=== PATIENT | male | born 1950 | race Caucasian/White ===

== ENCOUNTER 2025-06-07 06:00 | Inpatient (IN) | payer MEDICARE, MEDICAID, SELFPAY ==
[2025-06-07] VITALS (44 sets, daily range): BP systolic 104–143; BP diastolic 47–71; PULSE 70–101; RESP 19–30; TEMP 37.2–38.2; O2SAT 92–100; BMI 43.1
--- NOTE | ~2025-06-07 | XR_ITS ---
Examination: XR chest 1V portable Clinical History: sepsis Comparison: None Technique: Portable AP Findings: Heart size normal. Left basilar patchy opacity. Fracture left rib 5. IMPRESSION: 1. Left basilar atelectasis and/or airspace disease. Contusion also possible given age indeterminate rib fracture left rib 5.. Reviewed, dictated and finalized at location R. IMPRESSION: 1. Left basilar atelectasis and/or airspace disease. Contusion also possible g iven age indeterminate rib fracture left rib 5..
--- NOTE | ~2025-06-07 | CT_ITS ---
EXAMINATION: CT chest abdomen pelvis wo con DATE: 06/07/2025 15:14 INDICATION: Shortness of breath. TECHNIQUE: Computed tomography (CT) of the chest, abdomen, and pelvis was performed without intravenous contrast. Automated exposure control and iterative reconstruction technique were employed. The dose-length product was 2223.15 mGy-cm. COMPARISON: None FINDINGS: CHEST CT: The lungs demonstrate mild atelectasis. There are trace pleural effusions. Cardiomegaly is noted. There are coronary artery calcifications. No pericardial effusion. The central pulmonary arteries are enlarged, consistent with pulmonary artery hypertension. There is internal fixation of left humerus. There are old healed bilateral rib fractures. There are bridging endplate osteophytes at multiple levels in the spine, consistent with diffuse idiopathic skeletal hyperostosis (DISH). ABDOMEN/PELVIS CT: The liver and spleen are normal. There are gallstones in the gallbladder, which is distended. The pancreas and adrenal glands are normal. There are cysts in the kidneys measuring up to 19 mm on the right. There is a 2 mm stone in right kidney. A 9 mm mass in left kidney is too small to characterize, but likely a cyst. The Black catheter balloon is in the prostate. The prostate is moderately enlarged. There are diverticula of the bladder. There is diverticulosis of the colon without evidence of diverticulitis. The appendix is normal. There are no dilated loops of bowel. There is a lipoma in right iliopsoas muscle. There is mild bilateral external iliac lymphadenopathy, likely reactive. There is no a scites. There is a left hip hemiarthroplasty. There is moderate lumbar spondylosis. IMPRESSION: 1. Black catheter balloon in abnormal position in the prostate. 2. Mild bilateral external iliac lymphadenopathy, likely reactive. 3. Cholelithiasis. Gallbladder distention may be secondary to fasting. Correlate with physical exam to exclude acute cholecystitis. Reviewed, dictated and finalized at location E. IMPRESSION: 1. Black catheter balloon in abnormal position in the prostate. 2. Mild bilateral external iliac lymphadenopathy, likely reactive. 3. Cholelithiasis. Gallbladder distention may be secondary to fasting. Correlat e with physical exam to exclude acute cholecystitis.
--- NOTE | 2025-06-07 06:11 | ECG_ITS ---
Test Date: 2025-06-07 06:05:48 Measurements Intervals [place] Rate: 101 P: 99 WV: 214 QRS: 44 QRSD: 106 T: 58 QT: 354 QTc: 459 Interpretive Statements SINUS TACHYCARDIA WITH FIRST DEGREE AV BLOCK NONSPECIFIC ST & T-WAVE ABNORMALITY No previous ECG available for comparison Electronically Signed On 06-07-2025 06:13:01 CDT by Renita Bush M.D.
--- NOTE | 2025-06-07 06:13 | ED.FEVER ---
HPI - Fever General Chief Complaint: Shortness of Breath/Dyspnea Stated Complaint: FEVER, LOW SPO2 History of Present Illness HPI Narrative: 75-year-old male with a past medical history including cerebral infarction, COPD, hypertension, Alzheimer's dementia. Patient presents from 1 of our local nursing facilities for concerns of sepsis. Patient was found during morning rounds hypoxic, feverish, diaphoretic. Patient is awake alert oriented as baseline mentation, denies any cough, chest pain, abdominal pain, back pain. Brought in by EMS currently on non-rebreather secondary to hypoxemia despite oxygen supplementation. Patient is DNR DNI on a signed resuscitation form. Patient received 650 mg of Tylenol this morning by long term staff and his fever came down slightly. No recent illnesses per long term staff for EMS report. Patient herself has no specific complaints other than feeling unwell. Review of Systems Review of Systems: As reviewed above in HPI Exam Narrative: GENERAL: Ill appearing, acute distress, tachypneic, hypoxic and febrile, diaphoretic HEAD: Normocephalic EYES: PERRLA ENT: Nares clear, no rhinorrhea or epistaxis. Mucous membranes moist. NECK: Supple. CHEST: Coarse bibasilar breath sounds, coarse apical breath sounds, tachypnea, no wheezing HEART: Tachycardic rate, regular rhythm. No murmur heard. Warm extremities with good pulses ABDOMEN: Soft, protuberant but nondistended, no rigidity or guarding EXTREMITIES: Normal range of motion. Brawny edema in the legs SKIN: Very warm to the touch, diaphoretic, no appreciable rashes in the inguinal region or system NEURO: No new focal deficits, right-sided deficits from prior stroke. Alert and oriented times 2-3, intermittently confused on current location. PSYCH: Normal mood Course Vital Signs Vital signs: Vital Signs Temperature 38.1 C H 06/07/25 05:56 Pulse Rate 100 06/07/25 05:56 Respiratory Rate 27 H 06/07/25 05:56 Blood Pressure 136/63 06/07/25 05:56 Pulse Oximetry 95 06/07/25 05:56 Oxygen Delivery Non-Rebreather Mask 06/07/25 05:56 Oxygen Flow Rate 15 06/07/25 05:56 Temperature 38.1 C H 06/07/25 05:56 Pulse Rate 92 06/07/25 06:57 Respiratory Rate 27 H 06/07/25 06:53 Blood Pressure 136/63 06/07/25 05:56 Pulse Oximetry 96 06/07/25 06:53 Oxygen Delivery High Flow Therapy with Face Mask 06/07/25 06:53 Oxygen Flow Rate 35 06/07/25 06:53 Fraction of Inspired Oxygen 89 06/07/25 06:53 MDM - Fever MDM Narrative Medical decision making narrative: 75-year-old male with a past medical history including cerebral infarction, COPD, hypertension, Alzheimer's dementia. Patient presents from 1 of our local nursing facilities for concerns of sepsis. Patient was found during morning rounds hypoxic, feverish, diaphoretic. Patient is awake alert oriented as baseline mentation, denies any cough, chest pain, abdominal pain, back pain. Brought in by EMS currently on non-rebreather secondary to hypoxemia despite oxygen supplementation. Patient is DNR DNI on a signed resuscitation form. Patient received 650 mg of Tylenol this morning by long term staff and his fever came down slightly. No recent illnesses per long term staff for EMS report. Patient herself has no specific complaints other than feeling unwell. Patient is very ill appearing. Tachycardic in the low 100s, hypoxic 80% on 5 L per EMS currently 15 L non-rebreather 93-94%. Febrile axillary temperature. Tachypneic and has very coarse breath sounds concern for pneumonia versus aspiration with his history of stroke. Respiratory therapy called to bedside to initiate high-flow nasal cannula therapy as patient is DNR and DNI and does not want intubation, but with his level of distress he needs some respiratory support. Patient is significantly obese and full 30 cc/kg bolus would be almost 4500 cc, will give 3 L and reassess need for additional volume resuscitation given that he has normal blood pressure ranges tachycardic. Vancomycin and cefepime empirically for sepsis while workup underway including chest x-ray, urinalysis and basic laboratory studies. Patient will be admitted to the hospital after completion of workup and initial treatment of sepsis. Additional Tylenol administered for fever. Chest x-ray independently reviewed appears to be pneumonia with ground-glass opacities. COVID flu and RSV pending as well as laboratory studies. Laboratory studies show severe leukocytosis of 24,000 consistent with active infection. BUN and creatinine are elevated with no history of CKD suspect dehydration, fluid resuscitation ongoing. Patient evaluated and feeling better at this time. Much more awake on the high-flow nasal cannula saturating 95%. Discussed with the hospitalist Dr. Garcia plan for admission to the IMU. Except to the facility at this time. Urinalysis pending. Hospitalist asked to add on azithromycin to cover for other atypical infections as well. Medical Records Attestation: I reviewed the patient's medical records. Lab Data Attestation: I reviewed the patient's lab results. 06/07/25 06:27 06/07/25 06:27 Labs: Lab Results 06/07/25 Range/Units 06:27 WBC 24.5 H (4.5-10.0) K/mm3 RBC 4.36 L (4.6-6.20) M/mm3 Hgb 12.2 L (14.0-18.0) g/dL Hct 40.6 L (42.0-52.0) % MCV 93.1 (80-100) fl MCH 28.0 (26-34) pg MCHC 30.0 L (32-36) g/dl RDW 15.5 H (11.5-14.5) % Plt Count 234 (150-375) k/mm3 MPV 10.5 H (7.4-10.4) fl Immature Gran % (Auto) 2.5 H (0-0.5) % Neut % (Auto) 90.2 H (45.5-73.1) % Lymph % (Auto) 1.4 L (18.3-44.2) % [place] % (Auto) 5.6 (2.6-8.5) % Eos % (Auto) 0.0 (0-4.4) % Baso % (Auto) 0.3 (0.2-1.2) % Lymph # (Auto) 0.34 L (0.9-3.2) K/mm3 [place] # (Auto) 1.4 H (0.1-0.6) K/mm3 Eos # (Auto) 0.0 (0-0.3) K/mm3 Baso # (Auto) 0.1 (0.0-0.1) K/mm3 Abs Immat Gran (auto) 0.61 H (0.00-0.031) K/mm3 Absolute Neuts (auto) 22.1 H (1.3-6.7) K/mm3 Absolute Nucleated RBC 0.000 (0.0-0.012) K/mm3 Nucleated RBC % 0.0 (0.0-0.2) % PT 15.9 H (11.1-14.7) Seconds INR 1.3 APTT 28.2 (22.3-36.8) Seconds Sodium 142 (137-145) mmol/L Potassium 3.5 (3.4-5.0) mmol/L Chloride 105 (98-107) mmol/L Carbon Dioxide 28 (22-30) mmol/L Anion Gap 9 (4-12) mmol/L BUN 36 H (9-20) mg/dL Creatinine 2.16 H (0.7-1.3) mg/dL Estim Creat Clear Calc 43 ml/min Estimated GFR 30 L (59 - ) Glucose 130 H (65-110) mg/dL Lactic Acid 1.3 (0.7-2.0) mmol/L Calcium 8.6 (8.4-10.2) mg/dL Total Bilirubin 0.6 (0.2-1.3) mg/dL AST 30 (17-59) U/L ALT 18 (6-50) U/L Alkaline Phosphatase 62 (38-126) U/L C-Reactive Protein 6.8 H (<1.0) mg/dL Total Protein 7.8 (6.3-8.2) g/dL Albumin 4.0 (3.5-5.1) g/dL Imaging Data Attestation: I personally reviewed and interpreted this imaging study as follows: My impression: Impressions Chest X-Ray 06/07/25 06:42 IMPRESSION: 1. Left basilar atelectasis and/or airspace disease. Contusion also possible given age indeterminate rib fracture left rib 5.. Critical Care Time Critical Care Time Critical Care Time: Yes Total Critical Care Time: 35 Discharge Plan Discharge Clinical Impression: Sepsis, Acute hypoxemic respiratory failure, Pneumonia Patient Disposition: Still a Patient Condition: Stable Patient Language: Wolof Follow-up/Referrals: PHYSICIAN,CLAY MAKER [Primary Care Provider, Internal Medicine] Time of Disposition: 07:13
[2025-06-07 06:37] LABS: Hematocrit 40.6 % (42.0-52.0); Hemoglobin 12.2 g/dL (14.0-18.0); Immature Granulocyte Percent A 2.5 % (0-0.5); Lymphocytes Absolute Auto 0.34 K/mm3 (0.9-3.2); Mean Corpuscular HGB Conc 30.0 g/dl (32-36); Mean Corpuscular Hemoglobin 28.0 pg (26-34); Mean Corpuscular Volume 93.1 fl (80-100); Nucleated Red Blood Cells Absolute Auto 0.000 K/mm3 (0.0-0.012); Nucleated Red Blood Cells Perc 0.0 % (0.0-0.2); Platelet Count Result 234 k/mm3 (150-375); Red Blood Count 4.36 M/mm3 (4.6-6.20); White Blood Count 24.5 K/mm3 (4.5-10.0)
[2025-06-07] MEDS: LACTATED RINGERS 1,000 ML 999 ML IV CONT ×3 (06:44→06:45)
[2025-06-07] MEDS: CEFEPIME 2 GM in SODIUM CHLORIDE 0.9% IV 50 ML 100 ML IVPB ×2 (06:47→20:58)
[2025-06-07 06:48] LABS: INR 1.3; Prothrombin Time 15.9 Seconds (11.1-14.7)
[2025-06-07 06:49] LABS: Alanine Aminotransferase 18 U/L (6-50); Albumin Level 4.0 g/dL (3.5-5.1); Alkaline Phosphatase 62 U/L (38-126); Anion Gap 9 mmol/L (4-12); Aspartate Amino Transferase 30 U/L (17-59); Bilirubin,Total 0.6 mg/dL (0.2-1.3); Blood Urea Nitrogen 36 mg/dL (9-20); CRP 6.8 mg/dL (<1.0); Calcium 8.6 mg/dL (8.4-10.2); Carbon Dioxide 28 mmol/L (22-30); Chloride 105 mmol/L (98-107); Estimated CRCL calculation 43 ml/min; Estimated Glomerular Filt Rate 30; Glucose 130 mg/dL (65-110); Partial Thromboplastin Time 28.2 Seconds (22.3-36.8); Potassium 3.5 mmol/L (3.4-5.0); Sodium 142 mmol/L (137-145); Total Protein 7.8 g/dL (6.3-8.2)
[2025-06-07] MEDS: ACETAMINOPHEN 500 MG TABLET 1000 MG PO (06:56)
[2025-06-07] MEDS: LIDOCAINE 2% GEL UROJET 10 ML PKG (06:56)
--- NOTE | 2025-06-07 07:05 | PC.NURSE ---
Assumed care of pt from [facility]. Pt awake and talkative. Speech is slurred so its difficult to understand what pt is saying. Pt trying to tell jokes. Alert to person and place
[2025-06-07 07:18] LABS: Add Urine Microscopic? NO; Appearance Urine Clear (Clear); Glucose Urine UA Negative (Negative); Leukocyte Esterase Ur Negative LEU/UL (Negative); Nitrate Urine Negative (Negative); Specific Grav Ur 1.016 (1.001-1.035)
[2025-06-07] MEDS: AZITHROMYCIN IV 500 MG in SODIUM CHLORIDE 0.9% IV 250 ML IVPB (07:34)
[2025-06-07] MEDS: VANCOMYCIN 2,000 MG/NS 500 ML 2,000 MG/500 ML BAG 250 MG IVPB (08:20)
[2025-06-07 09:20] LABS: MRSA (PCR) NOT DETECTED (NOT DETECTE)
--- NOTE | 2025-06-07 10:52 | PC.NURSE ---
Patient arrived from ER. Tele and Spo2 monitor applied. O2 on airvo increased. Admission started. Dr notified of O2 increase and temperature
[2025-06-07] MEDS: HYDROCORTISONE SODIUM SUCCINATE 100 MG/2 ML VIAL 50 MG IV PUSH ×2 (12:06→17:53)
--- NOTE | 2025-06-07 18:25 | PM.IMHP ---
H&P: HPI History of Present Illness Date/Time: 06/07/25 18:25 Chief Complaint: Shortness of breath Narrative: Presents with hypoxia. Has a history of COPD. History of dementia. At baseline, chandrika historian, A&O x3. Placed on nasal cannula, when he came to the floor became more hypoxic. Placed on high-flow nasal cannula. He has been improving. Review of Systems Review of Systems: All systems reviewed & are unremarkable except as noted in HPI and below (Subjective) [facility] Social History Social History Smoking status: Former smoker Alcohol intake: former Substance use: never Lack of Transportation: No Lack of Food: Never True Current Housing: I Have Housing Concerned About Future Housing: No Difficulty Paying Gas/Electric Bills: No Difficulty Paying for Meds: No Currently Unemployed: No Education: Trade/Vocational Certificate Difficulty w/ Childcare or Family Care: No Spiritual care concerns: No Meds Home Medications and Allergies Home Medications ?Medication ?Instructions ?Recorded ?Confirmed ?Type acetaminophen 325 mg capsule 325 mg PO Q4H PRN fever or pain 06/07/25 06/07/25 History acetaminophen 500 mg tablet 500 mg PO BID 06/07/25 06/07/25 History albuterol sulfate 2.5 mg/3 mL 2.5 mg inhalation Q8H PRN 06/07/25 06/07/25 History (0.083 %) solution for nebulization shortness of breath or wheezing amlodipine 10 mg tablet 10 mg PO DAILY 06/07/25 06/07/25 History apixaban 2.5 mg tablet (Eliquis) 2.5 mg PO Q12H 06/07/25 06/07/25 History atorvastatin 20 mg tablet 20 mg PO QPM 06/07/25 06/07/25 History cholecalciferol (vitamin D3) 125 125 mcg PO DAILY 06/07/25 06/07/25 History mcg (5,000 unit) tablet escitalopram oxalate 10 mg tablet 10 mg PO DAILY 06/07/25 06/07/25 History ferrous sulfate 325 mg (65 mg 325 mg PO .COMPLEX 06/07/25 06/07/25 History iron) tablet ferrous sulfate 325 mg (65 mg 325 mg PO DAILY 06/07/25 06/07/25 History iron) tablet (FeroSul) fluticasone 250 mcg-salmeterol 50 1 inh inhalation Q12H 06/07/25 06/07/25 History mcg/dose blistr powdr for inhalation folic acid 400 mcg tablet 400 mcg PO DAILY 06/07/25 06/07/25 History hydralazine 100 mg tablet 100 mg PO TID 06/07/25 06/07/25 History insulin glargine 100 unit/mL (3 3 unit subcut QPM 06/07/25 06/07/25 History mL) subcutaneous pen (Lantus Solostar U-100 Insulin) insulin lispro 100 unit/mL 1 sliding scale dose subcut BID 06/07/25 06/07/25 History subcutaneous pen (Humalog KwikPen (U-100) Insulin) linagliptin 5 mg tablet (Tradjenta) 5 mg PO DAILY 06/07/25 06/07/25 History loperamide 2 mg capsule 2 mg PO Q12H PRN loose stool 06/07/25 06/07/25 History loratadine 10 mg tablet (Allergy 10 mg PO DAILY 06/07/25 06/07/25 History Relief (loratadine)) magnesium hydroxide 2,400 mg/10 mL 30 ml PO DAILY PRN constipation 06/07/25 06/07/25 History oral suspension (Milk Of Magnesia Concentrated) metoprolol tartrate 50 mg tablet 50 mg PO DAILY 06/07/25 06/07/25 History mirabegron 25 mg tablet,extended 25 mg PO HS 06/07/25 06/07/25 History release 24 hr (Myrbetriq) mirtazapine 15 mg tablet 15 mg PO HS 06/07/25 06/07/25 History sennosides 8.6 mg tablet (senna) 8.6 mg PO DAILY 06/07/25 06/07/25 History torsemide 20 mg tablet 40 mg PO DAILY 06/07/25 06/07/25 History trazodone 100 mg tablet 100 mg PO HS 06/07/25 06/07/25 History vilazodone 40 mg tablet 40 mg PO DAILY 06/07/25 06/07/25 History zolpidem 10 mg tablet 10 mg PO HS 06/07/25 06/07/25 History Allergies Allergy/AdvReac Type Severity Reaction Status Date / Time No Known Allergies Allergy Verified 06/07/25 10:49 Vital Signs Vital Signs - 24 hr 06/07/25 05:56 06/07/25 05:56 06/07/25 05:56 Temperature 100.6 F H Pulse Rate 100 Respiratory Rate 27 H 28 H Blood Pressure 136/63 Pulse Oximetry 95 96 Oxygen Delivery Non-Rebreather Mask Non-Rebreather Mask Oxygen Flow Rate 15 15 Fraction of Inspired Oxygen 06/07/25 06:07 06/07/25 06:08 06/07/25 06:15 Temperature Pulse Rate 101 H 100 98 Respiratory Rate 26 H 26 H 30 H Blood Pressure 136/63 Pulse Oximetry 95 92 Oxygen Delivery Oxygen Flow Rate Fraction of Inspired Oxygen 06/07/25 06:16 06/07/25 06:30 06/07/25 06:45 Temperature Pulse Rate 98 99 94 Respiratory Rate 28 H 29 H 25 H Blood Pressure 119/64 Pulse Oximetry 93 Oxygen Delivery Oxygen Flow Rate Fraction of Inspired Oxygen 06/07/25 06:53 06/07/25 06:53 06/07/25 06:57 Temperature Pulse Rate 97 96 92 Respiratory Rate 27 H 26 H Blood Pressure 128/60 Pulse Oximetry 96 Oxygen Delivery High Flow Therapy with Fa Oxygen Flow Rate 35 Fraction of Inspired Oxygen 89 06/07/25 07:00 06/07/25 07:01 06/07/25 07:02 Temperature Pulse Rate 99 93 96 Respiratory Rate 20 22 H 19 Blood Pressure 143/67 H Pulse Oximetry 97 95 96 Oxygen Delivery Oxygen Flow Rate Fraction of Inspired Oxygen 06/07/25 07:15 06/07/25 07:16 06/07/25 07:30 Temperature Pulse Rate 90 90 87 Respiratory Rate 23 H 21 H 28 H Blood Pressure 114/58 L Pulse Oximetry 96 96 96 Oxygen Delivery Oxygen Flow Rate Fraction of Inspired Oxygen 06/07/25 07:31 06/07/25 07:45 06/07/25 07:46 Temperature Pulse Rate 89 88 86 Respiratory Rate 27 H 25 H 26 H Blood Pressure 111/54 L 114/56 L Pulse Oximetry 96 97 97 Oxygen Delivery Oxygen Flow Rate Fraction of Inspired Oxygen 06/07/25 08:00 06/07/25 08:01 06/07/25 08:15 Temperature Pulse Rate 89 87 93 Respiratory Rate 30 H 25 H 26 H Blood Pressure 112/61 Pulse Oximetry 99 98 96 Oxygen Delivery Oxygen Flow Rate Fraction of Inspired Oxygen 06/07/25 08:16 06/07/25 08:17 06/07/25 08:30 Temperature Pulse Rate 93 89 87 Respiratory Rate 22 H 23 H 23 H Blood Pressure 117/71 Pulse Oximetry 93 Oxygen Delivery Oxygen Flow Rate Fraction of Inspired Oxygen 06/07/25 08:31 06/07/25 08:47 06/07/25 08:53 Temperature 100.6 F H Pulse Rate 89 Respiratory Rate 21 H Blood Pressure 118/62 Pulse Oximetry 93 97 Oxygen Delivery High Flow Therapy with Na Oxygen Flow Rate 30 Fraction of Inspired Oxygen 06/07/25 09:14 06/07/25 09:34 06/07/25 10:00 Temperature 100.8 F H Pulse Rate 84 84 75 Respiratory Rate 20 20 Blood Pressure 104/51 L Pulse Oximetry 93 92 Oxygen Delivery High Flow Therapy with Na Oxygen Flow Rate 60 Fraction of Inspired Oxygen 70 06/07/25 10:53 06/07/25 11:20 06/07/25 11:54 Temperature 99.8 F H 99.1 F Pulse Rate 72 70 Respiratory Rate 22 H 20 Blood Pressure 123/50 L Pulse Oximetry 95 97 Oxygen Delivery High Flow Therapy with Na Oxygen Flow Rate 60 Fraction of Inspired Oxygen 70 06/07/25 12:00 06/07/25 12:16 06/07/25 14:00 Temperature Pulse Rate 72 72 76 Respiratory Rate 20 Blood Pressure Pulse Oximetry 93 Oxygen Delivery High Flow Therapy with Na Oxygen Flow Rate 50 Fraction of Inspired Oxygen 65 06/07/25 15:27 06/07/25 15:31 06/07/25 16:00 Temperature 99.1 F Pulse Rate 76 78 75 Respiratory Rate 20 20 Blood Pressure 128/47 L Pulse Oximetry 94 98 Oxygen Delivery High Flow Nasal Cannula Oxygen Flow Rate 7 Fraction of Inspired Oxygen 06/07/25 16:53 06/07/25 18:00 Temperature Pulse Rate 71 Respiratory Rate Blood Pressure Pulse Oximetry 93 Oxygen Delivery High Flow Nasal Cannula Oxygen Flow Rate 5 Fraction of Inspired Oxygen Exam Const: General: comfortable and no acute distress Eyes: Pupils: Equal, round and reactive pupils present Neck: Neck: supple Resp: Effort & Inspection: normal respiratory effort Other: Coarse breath sounds Cardio: Rate: regular rate Rhythm: regular rhythm GI: Inspection: non-distended GI Palp: Yes Soft to palpation Neuro: Motor exam (neuro): 5/5 motor strength present throughout Extrem: Other: Lipodermatosclerosis H&P: Results Labs Labs: Short CBC 06/07/25 Range/Units 06:27 WBC 24.5 H (4.5-10.0) K/mm3 Hgb 12.2 L (14.0-18.0) g/dL Hct 40.6 L (42.0-52.0) % Plt Count 234 (150-375) k/mm3 BMP 06/07/25 06:27 Sodium 142 Potassium 3.5 Chloride 105 Carbon Dioxide 28 BUN 36 H Creatinine 2.16 H Glucose 130 H Calcium 8.6 Liver Function 06/07/25 Range/Units 06:27 Total Bilirubin 0.6 (0.2-1.3) mg/dL AST 30 (17-59) U/L ALT 18 (6-50) U/L Alkaline Phosphatase 62 (38-126) U/L Albumin 4.0 (3.5-5.1) g/dL Urine 06/07/25 Range/Units 06:30 Urine Color Yellow (Yellow) Urine Appearance Clear (Clear) Urine pH 5.0 (5.0-9.0) Ur Specific [place] 1.016 (1.001-1.035) Urine Protein Negative (Negative) mg/dL Urine Glucose (UA) Negative (Negative) mg/dL Assessment and Plan Assessment and plan (1) Sepsis: Code(s): A41.9 - Sepsis, unspecified organism Status: Acute (2) Acute hypoxemic respiratory failure: Code(s): J96.01 - Acute respiratory failure with hypoxia Status: Acute (3) Pneumonia: Code(s): J18.9 - Pneumonia, unspecified organism Status: Acute Plan Continue antibiotics. Follow-up blood culture. Check quad viral screen, full respiratory pathogen panel. DuoNebs q.6 hours. Hydrocortisone for high pneumonia severity index. Patient wishes to be DNR. Hospitalist MIPS Advance Care Plan I have confirmed that the patient's Advanced Care Plan is present, code status is documented, or surrogate decision maker is listed in patient medical record.: Yes Medication Reconciliation I have utilized all available resources to obtain, update and review the patients current medications (includes all prescriptions, OTC, herbals, cannabis, and nutritional supplements).: Yes
[2025-06-07 19:28] LABS: Influenza A QL RT-PCR Negative (Negative); Influenza B QL RT-PCR Negative (Negative); RSV RNA, RT-PCR Negative (Negative); SARS-CoV-2 RNA PCR Negative (Negative)
[2025-06-08] VITALS (34 sets, daily range): BP systolic 122–142; BP diastolic 49–90; PULSE 62–876; RESP 18–23; TEMP 36.7–37.2; O2SAT 87–98; BMI 43.0
[2025-06-08] MEDS: HYDROCORTISONE SODIUM SUCCINATE 100 MG/2 ML VIAL 50 MG IV PUSH ×4 (00:46→21:56)
[2025-06-08] MEDS: TAMSULOSIN HCL 0.4 MG CAPSULE PO ×2 (00:48→08:36)
--- NOTE | 2025-06-08 00:56 | PC.NURSE ---
Report from day shift that willoughby placed for retention was removed due to not draining. Bladder scanned 287ml. Received order to insert new catheter from Jaquelin Kruger. Attempted coude placement without success. Patient voided after attempt. bladder scanned 33ml. received order okay to leave willoughby out and bladder scan q6 hours and prn. Received orders for flomax.
[2025-06-08] MEDS: IPRATROPIUM 0.5 MG/ALBUTEROL SULFATE 2.5 MG AMPUL.NEB 3 ML INHALATION ×5 (01:35→19:50)
[2025-06-08 06:51] LABS: Hematocrit 35.0 % (42.0-52.0); Hemoglobin 10.4 g/dL (14.0-18.0); Immature Granulocyte Percent A 1.2 % (0-0.5); Lymphocytes Absolute Auto 0.60 K/mm3 (0.9-3.2); Mean Corpuscular HGB Conc 29.7 g/dl (32-36); Mean Corpuscular Hemoglobin 28.0 pg (26-34); Mean Corpuscular Volume 94.3 fl (80-100); Nucleated Red Blood Cells Absolute Auto 0.000 K/mm3 (0.0-0.012); Nucleated Red Blood Cells Perc 0.0 % (0.0-0.2); Platelet Count Result 180 k/mm3 (150-375); Red Blood Count 3.71 M/mm3 (4.6-6.20); White Blood Count 16.1 K/mm3 (4.5-10.0)
[2025-06-08 07:11] LABS: Alanine Aminotransferase 15 U/L (6-50); Albumin Level 3.3 g/dL (3.5-5.1); Alkaline Phosphatase 62 U/L (38-126); Anion Gap 7 mmol/L (4-12); Aspartate Amino Transferase 35 U/L (17-59); Bilirubin,Total 0.4 mg/dL (0.2-1.3); Blood Urea Nitrogen 35 mg/dL (9-20); Calcium 7.9 mg/dL (8.4-10.2); Carbon Dioxide 28 mmol/L (22-30); Chloride 104 mmol/L (98-107); Estimated CRCL calculation 51 ml/min; Estimated Glomerular Filt Rate 38; Glucose 205 mg/dL (65-110); Magnesium 2.3 mg/dL (1.6-2.3); Potassium 3.7 mmol/L (3.4-5.0); Sodium 139 mmol/L (137-145); Total Protein 6.5 g/dL (6.3-8.2)
[2025-06-08 07:26] LABS: Anisocytosis 1+; Hypochromasia 1+
[2025-06-08 07:27] LABS: Schistocytes None Seen
[2025-06-08] MEDS: AZITHROMYCIN IV 500 MG in SODIUM CHLORIDE 0.9% IV 250 ML IVPB (08:35)
[2025-06-08] MEDS: METOPROLOL TARTRATE 50 MG TAB PO (08:36)
[2025-06-08] MEDS: LORATADINE 10 MG TABLET PO (08:36)
[2025-06-08] MEDS: FERROUS SULFATE 325 MG TABLET PO (08:36)
[2025-06-08] MEDS: VANCOMYCIN 2,000 MG/NS 500 ML 2,000 MG/500 ML BAG 250 MG IVPB (08:39)
[2025-06-08] MEDS: CEFEPIME 2 GM in SODIUM CHLORIDE 0.9% IV 50 ML 100 ML IVPB ×2 (08:39→20:35)
--- NOTE | 2025-06-08 09:46 | P.CDI_ITS ---
CDI Query Clarification Request Patient with a BMI of 43.0 please provide a diagnosis to accompany this finding: * Overweight * Obesity * Morbid Obesity * Other/Unknown <Meghann Patterson RN - Last Filed: 06/08/25 09:47> Clarified Diagnosis Clarified Diagnosis: Morbid obesity <Lora Garcia MD - Last Filed: 06/09/25 08:23>
[2025-06-08] MEDS: SENNOSIDES 8.6 MG TABLET PO (10:45)
[2025-06-08] MEDS: APIXABAN 2.5 MG TABLET PO ×2 (10:45→20:35)
[2025-06-08] MEDS: INSULIN ASPART (*BKC) 100 UNITS/ML SUB-Q ×4 (10:45→20:50)
--- NOTE | 2025-06-08 15:16 | PC.NURSE ---
On 06/08/25, the student, Jami, provided care and completed [facility] documentation on [facility]. I have reviewed the student's documentation and agree with the findings.
[2025-06-08] MEDS: INSULIN GLARGINE (*BKC) 100 UNITS/ML SUB-Q (17:19)
[2025-06-08] MEDS: ATORVASTATIN 20 MG TABLET PO (17:22)
--- NOTE | 2025-06-08 17:39 | PM.IMPN ---
Progress Note: A&P Assessment and Plan (1) Sepsis: Code(s): A41.9 - Sepsis, unspecified organism Status: Acute (2) Acute hypoxemic respiratory failure: Code(s): J96.01 - Acute respiratory failure with hypoxia Status: Acute (3) Pneumonia: Code(s): J18.9 - Pneumonia, unspecified organism Status: Acute (4) COPD exacerbation: Code(s): J44.1 - Chronic obstructive pulmonary disease with (acute) exacerbation Status: Acute Plan Patient is stable. Attempted to wean but developed hypoxia on room air. He is back and stable on 3 L high-flow nasal cannula. Continue antibiotics cefepime and azithromycin. Discontinue vancomycin. MRSA screen negative. He does not appear to be in fluid overload. Patient is able to provide some history but a bit unreliable due to his dementia. I called his attending physician from the skilled nursing papers and they did not know much about his file. Advised to call the skilled nursing and ask for records. I called and they did not answer, could not leave a message. Spoke with the patient about his Eliquis. Not appear to be on aspirin. 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 He is amenable to restart the aspirin. Continue [employer] atorvastatin as well. Start to wean hydrocortisone from 50 mg q.6 hours to q.8 hours. Patient wishes to be DNR. Saline lock IV. Continue [employer] Eliquis 2.5 mg p.o. b.i.d.. Time Spent With Patient Time with patient: Greater than 35 minutes Subjective Date/time seen: 06/08/25 17:39 Interval history: No major acute overnight events. Patient is a fair historian. Denies any complaints. Review of Systems Review of Systems: All systems reviewed & are unremarkable except as noted in HPI and below (Subjective) Exam Const: General: comfortable and no acute distress Eyes: Pupils: Equal, round and reactive pupils present Neck: Neck: supple Resp: Effort & Inspection: normal respiratory effort Other: Coarse breath sounds Cardio: Rate: regular rate Rhythm: regular rhythm GI: Inspection: non-distended GI Palp: Yes Soft to palpation Neuro: Motor exam (neuro): 5/5 motor strength present throughout Extrem: Other: Lipodermatosclerosis Objective Data Vital Signs Vital Signs: Vital Signs - 24 hr 06/07/25 18:00 06/07/25 20:00 06/07/25 20:00 Temperature Pulse Rate 71 73 Respiratory Rate Blood Pressure Pulse Oximetry 95 Oxygen Delivery High Flow Nasal Cannula Oxygen Flow Rate 5 06/07/25 20:24 06/07/25 22:00 06/08/25 00:00 Temperature 98.9 F Pulse Rate 70 72 72 Respiratory Rate 21 H Blood Pressure 129/69 Pulse Oximetry 100 Oxygen Delivery Oxygen Flow Rate 06/08/25 00:00 06/08/25 00:03 06/08/25 01:35 Temperature 98.6 F Pulse Rate 71 79 Respiratory Rate 22 H 18 Blood Pressure 122/54 L Pulse Oximetry 95 97 Oxygen Delivery High Flow Nasal Cannula Oxygen Flow Rate 5 06/08/25 01:45 06/08/25 02:41 06/08/25 04:00 Temperature Pulse Rate 84 66 74 Respiratory Rate 18 Blood Pressure Pulse Oximetry Oxygen Delivery Oxygen Flow Rate 06/08/25 04:00 06/08/25 04:50 06/08/25 06:12 Temperature 98.7 F Pulse Rate 74 69 Respiratory Rate 22 H Blood Pressure 138/57 L Pulse Oximetry 96 98 Oxygen Delivery High Flow Nasal Cannula Oxygen Flow Rate 5 06/08/25 07:34 06/08/25 08:00 06/08/25 08:04 Temperature 98.6 F Pulse Rate 83 876 H Respiratory Rate 20 Blood Pressure 124/90 Pulse Oximetry 96 87 L Oxygen Delivery Room Air Oxygen Flow Rate 06/08/25 08:04 06/08/25 08:05 06/08/25 08:16 Temperature Pulse Rate 72 79 Respiratory Rate 20 20 Blood Pressure Pulse Oximetry 90 Oxygen Delivery High Flow Nasal Cannula Oxygen Flow Rate 3 06/08/25 08:36 06/08/25 08:39 06/08/25 10:00 Temperature Pulse Rate 83 83 68 Respiratory Rate 20 Blood Pressure Pulse Oximetry 88 L Oxygen Delivery Room Air Oxygen Flow Rate 06/08/25 10:22 06/08/25 11:08 06/08/25 11:17 Temperature 98.1 F Pulse Rate 72 Respiratory Rate 20 Blood Pressure 122/62 Pulse Oximetry 91 91 93 Oxygen Delivery High Flow Nasal Cannula High Flow Nasal Cannula Oxygen Flow Rate 3 3 06/08/25 12:00 06/08/25 13:14 06/08/25 13:23 Temperature Pulse Rate 73 67 71 Respiratory Rate 20 20 Blood Pressure Pulse Oximetry Oxygen Delivery Oxygen Flow Rate 06/08/25 14:00 06/08/25 15:03 06/08/25 16:00 Temperature Pulse Rate 83 71 Respiratory Rate Blood Pressure Pulse Oximetry 93 Oxygen Delivery High Flow Nasal Cannula Oxygen Flow Rate 3 06/08/25 16:00 Temperature 98.1 F Pulse Rate 66 Respiratory Rate 20 Blood Pressure 129/53 L Pulse Oximetry 91 Oxygen Delivery Oxygen Flow Rate Intake/Output Intake/Output: Intake & Output 06/05/25 06/06/25 06/07/25 06/08/25 23:59 23:59 23:59 23:59 Intake Total 3930 1410 Output Total 450 950 Balance 3480 460 Meds/Results Medications: Active Medications Generic Name Dose Route Start Last Admin Trade Name Freq PRN Reason Stop Dose Admin Acetaminophen 650 mg 06/07/25 07:05 Acetaminophen 325 Mg Tablet PO Q4H PRN Mild Pain (1-3) or Fever Albuterol/Ipratropium 3 ml 06/07/25 20:00 06/08/25 13:09 Ipratropium 0.5 Mg/Albuterol Sulfate 2.5 Mg Ampul.Neb 3 Ml INHALATION 3 ml Q6HRT SAAD Administration Apixaban 2.5 mg 06/08/25 09:10 06/08/25 10:45 Apixaban 2.5 Mg Tablet PO 2.5 mg Q12HR SAAD Administration Atorvastatin Calcium 20 mg 06/08/25 18:00 06/08/25 17:22 Atorvastatin 20 Mg Tablet PO 20 mg QPM SAAD Administration Dextrose 12.5 gm 06/07/25 18:17 Dextrose 50% 25 Gm/50 Ml Syringe IV PUSH PRN PRN Hypoglycemia Protocol Ferrous Sulfate 325 mg 06/08/25 09:00 06/08/25 08:36 Ferrous Sulfate 325 Mg Tablet PO 325 mg DAILY SAAD Administration Folic Acid 0.4 mg 06/09/25 09:00 Folic Acid 0.4 Mg Tablet PO DAILY SAAD Glucose 15 gm 06/07/25 18:17 Glucose Oral Gel 15 Gm Of Glucse In 37.5 Gm Tube PO PRN PRN Hypoglycemia Protocol Hydrocortisone Sodium Succinate 50 mg 06/08/25 14:00 06/08/25 13:06 Hydrocortisone Sodium Succinate 100 Mg/2 Ml Vial IV PUSH 50 mg Q8HR SAAD Administration Dextrose 1,000 mls @ 100 mls/hr 06/07/25 18:17 Dextrose 5% 1,000 Ml IVPB PRN PRN Hypoglycemia Protocol Cefepime HCl 2 gm/ Sodium 50 mls @ 100 mls/hr 06/07/25 20:00 06/08/25 08:39 Chloride IVPB 100 mls/hr Q12H SAAD Administration Azithromycin 500 mg/ Sodium 250 mls @ 250 mls/hr 06/08/25 08:00 06/08/25 08:35 Chloride IVPB 250 mls/hr Q24H SAAD Administration Insulin Aspart 2 - 5 units 06/08/25 08:00 06/08/25 17:18 Insulin Aspart (*Bkc) 100 Units/Ml SUB-Q 2 units TIDWM SAAD Administration Protocol Insulin Aspart 1 - 2 units 06/07/25 21:00 06/07/25 21:02 Insulin Aspart (*Bkc) 100 Units/Ml SUB-Q Not Given HS [facility] Protocol Insulin Glargine 3 units 06/08/25 18:00 06/08/25 17:19 Insulin Glargine (*Bkc) 100 Units/Ml SUB-Q 3 units QPM SAAD Administration Loratadine 10 mg 06/08/25 09:00 06/08/25 08:36 Loratadine 10 Mg Tablet PO 10 mg DAILY SAAD Administration Metoprolol Tartrate 50 mg 06/08/25 09:00 06/08/25 08:36 Metoprolol Tartrate 50 Mg Tab PO 50 mg DAILY SAAD Administration Mirabegron 25 mg 06/08/25 21:00 Mirabegron 25 Mg Er Tablet PO HS [facility] Mirtazapine 15 mg 06/08/25 21:00 Mirtazapine 15 Mg Tablet PO HS [facility] Miscellaneous Information 1 each 06/08/25 00:01 Vilazodone Nonformulary. Can Patient Bring From Home Or Hold Till Discharge? XX 07/08/25 00:00 CLARIFY [facility] Non-Formulary Medication 40 mg 06/09/25 09:00 Vilazodone PO 07/09/25 08:59 DAILY SAAD Senna 8.6 mg 06/08/25 09:55 06/08/25 10:45 Sennosides 8.6 Mg Tablet PO 8.6 mg DAILY SAAD Administration Tamsulosin HCl 0.4 mg 06/08/25 09:00 06/08/25 08:36 Tamsulosin Hcl 0.4 Mg Capsule PO 0.4 mg QAM SAAD Administration Torsemide 40 mg 06/09/25 09:00 Torsemide 20 Mg Tablet PO DAILY SAAD Trazodone HCl 100 mg 06/08/25 21:00 Trazodone Hcl 50 Mg Tablet PO HS [facility] Vitamin D 125 mcg 06/09/25 09:00 Cholecalciferol (Vitamin D3) 125 Mcg (5,000 Units) Tablet PO DAILY [facility] Radiology Results: ITS Impressions Chest X-Ray 06/07/25 06:42 IMPRESSION: 1. Left basilar atelectasis and/or airspace disease. Contusion also possible given age indeterminate rib fracture left rib 5.. Chest/Abdomen/Pelvis CT 06/07/25 15:17 IMPRESSION: 1. Black catheter balloon in abnormal position in the prostate. 2. Mild bilateral external iliac lymphadenopathy, likely reactive. 3. Cholelithiasis. Gallbladder distention may be secondary to fasting. Correlate with physical exam to exclude acute cholecystitis. Labs Labs: Laboratory Results - last 24 hr 06/07/25 06/07/25 06/07/25 18:40 18:40 20:22 WBC RBC Hgb Hct MCV MCH MCHC RDW Plt Count MPV Immature Gran % (Auto) Neut % (Auto) Lymph % (Auto) Dickson % (Auto) Eos % (Auto) Baso % (Auto) Lymph # (Auto) Dickson # (Auto) Eos # (Auto) Baso # (Auto) Abs Immat Gran (auto) Absolute Neuts (auto) Absolute Nucleated RBC Band Neutrophils % Nucleated RBC % Platelet Estimate Hypochromasia Anisocytosis Schistocytes Sodium Potassium Chloride Carbon Dioxide Anion Gap BUN Creatinine Estim Creat Clear Calc Estimated GFR Glucose POC Capillary Glucose 174 H Calcium Magnesium Total Bilirubin AST ALT Alkaline Phosphatase Total Protein Albumin Nasal RSV Type A (PCR) Cancelled Nasal RSV Type B (PCR) Cancelled Vancomycin Trough Chlamy pneumoniae PCR Cancelled Adenovirus DNA Cancelled Human Bocavirus (TRAV) Cancelled Coronavirus Type OC43 Cancelled Coronavirus Type HKU1 Cancelled Coronavirus Type 229E Cancelled Coronavirus Type NL63 Cancelled Human Metapneumovir PCR Cancelled Influenza A (RT-PCR) Negative Influenza A (PCR) Cancelled Influenza A (H1) RNA Cancelled Influenza A (H3) PCR Cancelled Influenza B (RT-PCR) Negative M. pneumoniae DNA Cancelled Parainfluenza PCR Cancelled Parainfluenza 2 (PCR) Cancelled Parainfluenza 3 RNA (PCR) Cancelled Parainfluenza 4 (PCR) Cancelled RSV (RT-PCR) Negative Rhino/Enterovirus (TRAV) Cancelled SARS-CoV-2 RNA (RT-PCR) Negative Cancelled Influenza Type B (PCR) Cancelled Misc Test Comment Cancelled 06/08/25 06/08/25 06/08/25 06:34 07:14 11:08 WBC 16.1 H RBC 3.71 L Hgb 10.4 L Hct 35.0 L MCV 94.3 MCH 28.0 MCHC 29.7 L RDW 15.4 H Plt Count 180 MPV 10.2 Immature Gran % (Auto) 1.2 H Neut % (Auto) 91.4 H Lymph % (Auto) 3.7 L Dickson % (Auto) 3.5 Eos % (Auto) 0.0 Baso % (Auto) 0.2 Lymph # (Auto) 0.60 L Dickson # (Auto) 0.6 Eos # (Auto) 0.0 Baso # (Auto) 0.0 Abs Immat Gran (auto) 0.19 H Absolute Neuts (auto) 14.7 H Absolute Nucleated RBC 0.000 Band Neutrophils % Not Reportable Nucleated RBC % 0.0 Platelet Estimate Adequate Hypochromasia 1+ Anisocytosis 1+ Schistocytes None seen Sodium 139 Potassium 3.7 Chloride 104 Carbon Dioxide 28 Anion Gap 7 BUN 35 H Creatinine 1.76 H Estim Creat Clear Calc 51 Estimated GFR 38 L Glucose 205 H POC Capillary Glucose 203 H 250 H Calcium 7.9 L Magnesium 2.3 Total Bilirubin 0.4 AST 35 ALT 15 Alkaline Phosphatase 62 Total Protein 6.5 Albumin 3.3 L Nasal RSV Type A (PCR) Nasal RSV Type B (PCR) Vancomycin Trough 7.6 L Chlamy pneumoniae PCR Adenovirus DNA Human Bocavirus (TRAV) Coronavirus Type OC43 Coronavirus Type HKU1 Coronavirus Type 229E Coronavirus Type NL63 Human Metapneumovir PCR Influenza A (RT-PCR) Influenza A (PCR) Influenza A (H1) RNA Influenza A (H3) PCR Influenza B (RT-PCR) M. pneumoniae DNA Parainfluenza PCR Parainfluenza 2 (PCR) Parainfluenza 3 RNA (PCR) Parainfluenza 4 (PCR) RSV (RT-PCR) Rhino/Enterovirus (TRAV) SARS-CoV-2 RNA (RT-PCR) Influenza Type B (PCR) Misc Test Comment 06/08/25 06/08/25 12:58 16:38 WBC RBC Hgb Hct MCV MCH MCHC RDW Plt Count MPV Immature Gran % (Auto) Neut % (Auto) Lymph % (Auto) Dickson % (Auto) Eos % (Auto) Baso % (Auto) Lymph # (Auto) Dickson # (Auto) Eos # (Auto) Baso # (Auto) Abs Immat Gran (auto) Absolute Neuts (auto) Absolute Nucleated RBC Band Neutrophils % Nucleated RBC % Platelet Estimate Hypochromasia Anisocytosis Schistocytes Sodium Potassium Chloride Carbon Dioxide Anion Gap BUN Creatinine Estim Creat Clear Calc Estimated GFR Glucose POC Capillary Glucose 231 H 243 H Calcium Magnesium Total Bilirubin AST ALT Alkaline Phosphatase Total Protein Albumin Nasal RSV Type A (PCR) Nasal RSV Type B (PCR) Vancomycin Trough Chlamy pneumoniae PCR Adenovirus DNA Human Bocavirus (TRAV) Coronavirus Type OC43 Coronavirus Type HKU1 Coronavirus Type 229E Coronavirus Type NL63 Human Metapneumovir PCR Influenza A (RT-PCR) Influenza A (PCR) Influenza A (H1) RNA Influenza A (H3) PCR Influenza B (RT-PCR) M. pneumoniae DNA Parainfluenza PCR Parainfluenza 2 (PCR) Parainfluenza 3 RNA (PCR) Parainfluenza 4 (PCR) RSV (RT-PCR) Rhino/Enterovirus (TRAV) SARS-CoV-2 RNA (RT-PCR) Influenza Type B (PCR) Misc Test Comment
[2025-06-08] MEDS: MIRTAZAPINE 15 MG TABLET PO (20:35)
[2025-06-08] MEDS: MIRABEGRON 25 MG ER TABLET PO (20:35)
[2025-06-09] VITALS (21 sets, daily range): BP systolic 116–151; BP diastolic 54–82; PULSE 53–88; RESP 16–21; TEMP 36.4–37; O2SAT 90–100
[2025-06-09] MEDS: IPRATROPIUM 0.5 MG/ALBUTEROL SULFATE 2.5 MG AMPUL.NEB 3 ML INHALATION ×3 (01:11→20:45)
[2025-06-09 03:56] LABS: Hematocrit 32.1 % (42.0-52.0); Hemoglobin 9.7 g/dL (14.0-18.0); Immature Granulocyte Percent A 0.4 % (0-0.5); Lymphocytes Absolute Auto 0.81 K/mm3 (0.9-3.2); Mean Corpuscular HGB Conc 30.2 g/dl (32-36); Mean Corpuscular Hemoglobin 28.0 pg (26-34); Mean Corpuscular Volume 92.5 fl (80-100); Nucleated Red Blood Cells Absolute Auto 0.000 K/mm3 (0.0-0.012); Nucleated Red Blood Cells Perc 0.0 % (0.0-0.2); Platelet Count Result 185 k/mm3 (150-375); Red Blood Count 3.47 M/mm3 (4.6-6.20); White Blood Count 11.5 K/mm3 (4.5-10.0)
[2025-06-09 04:23] LABS: Anion Gap 4 mmol/L (4-12); Blood Urea Nitrogen 31 mg/dL (9-20); Calcium 8.1 mg/dL (8.4-10.2); Carbon Dioxide 30 mmol/L (22-30); Chloride 104 mmol/L (98-107); Estimated CRCL calculation 60 ml/min; Estimated Glomerular Filt Rate 46; Glucose 233 mg/dL (65-110); Magnesium 2.4 mg/dL (1.6-2.3); Potassium 3.8 mmol/L (3.4-5.0); Sodium 138 mmol/L (137-145)
[2025-06-09 04:25] LABS: Procalcitonin 4.8 ng/mL
[2025-06-09] MEDS: HYDROCORTISONE SODIUM SUCCINATE 100 MG/2 ML VIAL 50 MG IV PUSH ×3 (05:45→20:25)
--- NOTE | 2025-06-09 08:23 | PM.IMPN ---
Progress Note: A&P Assessment and Plan (1) Acute hypoxemic respiratory failure: Code(s): J96.01 - Acute respiratory failure with hypoxia Status: Acute (2) Pneumonia: Code(s): J18.9 - Pneumonia, unspecified organism Status: Acute (3) COPD exacerbation: Code(s): J44.1 - Chronic obstructive pulmonary disease with (acute) exacerbation Status: Acute (4) Sepsis: Code(s): A41.9 - Sepsis, unspecified organism Status: Acute Plan Sepsis continues to improve. Leukocytosis coming down. Procalcitonin high, continue to trend. Low blood cultures, no growth to date. Pending Legionella and pneumococcus antigen. Pending full viral respiratory pathogen panel. Pneumonia versus bronchitis. Quad viral screen negative. Anemia stable. Serum creatinine improving. Blood sugars elevated, continue Accu-Cheks a.c. HS with insulin siding scale. Continue cefepime and azithromycin. Decreased frequency of hydrocortisone for severe pneumonia to 50 mg IV push q.12 hours. Continue DuoNebs q.6 hours considering his wheezing. Patient tells me he does not wear a breathing mask at night at home Continue trazodone, torsemide, senna, mirtazapine, Mirabegron, apixaban 2.5 mg p.o. b.i.d., atorvastatin, metoprolol. As his GFR improves tomorrow will restart escitalopram. Holding SWIMMING POOL CLEANER zolpidem and amlodipine. Patient wishes to be DNR. Heart healthy diet. Fall precautions, PT/OT. Continue SWIMMING POOL CLEANER Eliquis 2.5 mg p.o. b.i.d.. Saline lock IV. Patient is stable to go to medical floor with telemetry. Time Spent With Patient Time with patient: Greater than 35 minutes Subjective Date/time seen: 06/09/25 08:23 Interval history: No major acute overnight events. Patient reports his breathing is good. However, he actively has a dry cough and some audible wheezing. Denies sputum production. Review of Systems Review of Systems: All systems reviewed & are unremarkable except as noted in HPI and below (Subjective) Exam Const: General: comfortable and no acute distress Other: A&O x3, obese. HENMT: Mouth: Yes moist mucous membranes Eyes: Pupils: Equal, round and reactive pupils present Neck: Neck: supple Resp: Other: Dyspnea on exertion, audible wheeze, decreased breath sounds on auscultation without other adventitious sounds Cardio: Rate: regular rate Rhythm: regular rhythm Heart sounds: no murmurs GI: Inspection: non-distended GI Palp: Yes Soft to palpation Neuro: Motor exam (neuro): 5/5 motor strength present throughout Extrem: General: edema Other: Trace pitting edema bilateral lower extremities with lipodermatosclerosis Objective Data Vital Signs Vital Signs: Vital Signs - 24 hr 06/08/25 08:36 06/08/25 08:39 06/08/25 10:00 Temperature Pulse Rate 83 83 68 Respiratory Rate 20 Blood Pressure Pulse Oximetry 88 L Oxygen Delivery Room Air Oxygen Flow Rate Fraction of Inspired Oxygen 06/08/25 10:22 06/08/25 11:08 06/08/25 11:17 Temperature 98.1 F Pulse Rate 72 Respiratory Rate 20 Blood Pressure 122/62 Pulse Oximetry 91 91 93 Oxygen Delivery High Flow Nasal Cannula High Flow Nasal Cannula Oxygen Flow Rate 3 3 Fraction of Inspired Oxygen 06/08/25 12:00 06/08/25 13:14 06/08/25 13:23 Temperature Pulse Rate 73 67 71 Respiratory Rate 20 20 Blood Pressure Pulse Oximetry Oxygen Delivery Oxygen Flow Rate Fraction of Inspired Oxygen 06/08/25 14:00 06/08/25 15:03 06/08/25 16:00 Temperature Pulse Rate 83 71 Respiratory Rate Blood Pressure Pulse Oximetry 93 Oxygen Delivery High Flow Nasal Cannula Oxygen Flow Rate 3 Fraction of Inspired Oxygen 06/08/25 16:00 06/08/25 18:00 06/08/25 19:50 Temperature 98.1 F Pulse Rate 66 65 65 Respiratory Rate 20 20 Blood Pressure 129/53 L Pulse Oximetry 91 Oxygen Delivery Oxygen Flow Rate Fraction of Inspired Oxygen 06/08/25 19:53 06/08/25 19:57 06/08/25 19:59 Temperature Pulse Rate 64 Respiratory Rate 20 Blood Pressure Pulse Oximetry 91 98 Oxygen Delivery High Flow Nasal Cannula Nasal Cannula Oxygen Flow Rate 4 3 Fraction of Inspired Oxygen 36 06/08/25 20:00 06/08/25 20:21 06/08/25 22:00 Temperature 98.9 F Pulse Rate 69 72 69 Respiratory Rate 23 H Blood Pressure 142/49 H Pulse Oximetry 92 Oxygen Delivery Oxygen Flow Rate Fraction of Inspired Oxygen 06/08/25 23:07 06/09/25 00:00 06/09/25 00:00 Temperature 98.8 F Pulse Rate 62 76 Respiratory Rate 20 Blood Pressure 125/55 L Pulse Oximetry 95 98 Oxygen Delivery Nasal Cannula Oxygen Flow Rate 3 Fraction of Inspired Oxygen 06/09/25 01:12 06/09/25 01:21 06/09/25 02:00 Temperature Pulse Rate 60 56 L 68 Respiratory Rate 20 20 Blood Pressure Pulse Oximetry Oxygen Delivery Oxygen Flow Rate Fraction of Inspired Oxygen 06/09/25 03:29 06/09/25 04:00 06/09/25 04:00 Temperature 98.6 F Pulse Rate 60 57 L Respiratory Rate 21 H Blood Pressure 116/54 L Pulse Oximetry 94 90 Oxygen Delivery Nasal Cannula Oxygen Flow Rate 3 Fraction of Inspired Oxygen 06/09/25 05:53 06/09/25 07:23 06/09/25 07:25 Temperature Pulse Rate 53 L 61 61 Respiratory Rate 20 20 Blood Pressure Pulse Oximetry 92 Oxygen Delivery High Flow Therapy with Na Oxygen Flow Rate 4 Fraction of Inspired Oxygen 06/09/25 07:28 06/09/25 07:47 Temperature 97.8 F Pulse Rate 60 62 Respiratory Rate 20 18 Blood Pressure 137/74 Pulse Oximetry 100 Oxygen Delivery Oxygen Flow Rate Fraction of Inspired Oxygen Intake/Output Intake/Output: Intake & Output 06/06/25 06/07/25 06/08/25 06/09/25 23:59 23:59 23:59 23:59 Intake Total 3930 2100 1000 Output Total 450 1500 380 Balance 3480 600 620 Meds/Results Medications: Active Medications Generic Name Dose Route Start Last Admin Trade Name Freq PRN Reason Stop Dose Admin Acetaminophen 650 mg 06/07/25 07:05 Acetaminophen 325 Mg Tablet PO Q4H PRN Mild Pain (1-3) or Fever Albuterol/Ipratropium 3 ml 06/07/25 20:00 06/09/25 07:22 Ipratropium 0.5 Mg/Albuterol Sulfate 2.5 Mg Ampul.Neb 3 Ml INHALATION 3 ml Q6HRT SAAD Administration Apixaban 2.5 mg 06/08/25 09:10 06/08/25 20:35 Apixaban 2.5 Mg Tablet PO 2.5 mg Q12HR SAAD Administration Atorvastatin Calcium 20 mg 06/08/25 18:00 06/08/25 17:22 Atorvastatin 20 Mg Tablet PO 20 mg QPM SAAD Administration Dextrose 12.5 gm 06/07/25 18:17 Dextrose 50% 25 Gm/50 Ml Syringe IV PUSH PRN PRN Hypoglycemia Protocol Docusate Sodium 100 mg 06/09/25 09:00 Docusate Sodium 100 Mg Capsule PO Q12HR SAAD Ferrous Sulfate 325 mg 06/08/25 09:00 06/08/25 08:36 Ferrous Sulfate 325 Mg Tablet PO 325 mg DAILY SAAD Administration Folic Acid 0.4 mg 06/09/25 09:00 Folic Acid 0.4 Mg Tablet PO DAILY SAAD Glucose 15 gm 06/07/25 18:17 Glucose Oral Gel 15 Gm Of Glucse In 37.5 Gm Tube PO PRN PRN Hypoglycemia Protocol Hydrocortisone Sodium Succinate 50 mg 06/09/25 09:00 Hydrocortisone Sodium Succinate 100 Mg/2 Ml Vial IV PUSH Q12H SAAD Dextrose 1,000 mls @ 100 mls/hr 06/07/25 18:17 Dextrose 5% 1,000 Ml IVPB PRN PRN Hypoglycemia Protocol Cefepime HCl 2 gm/ Sodium 50 mls @ 100 mls/hr 06/07/25 20:00 06/08/25 20:35 Chloride IVPB 100 mls/hr Q12H SAAD Administration Azithromycin 500 mg/ Sodium 250 mls @ 250 mls/hr 06/08/25 08:00 06/08/25 08:35 Chloride IVPB 250 mls/hr Q24H SAAD Administration Insulin Aspart 2 - 5 units 06/08/25 08:00 06/08/25 17:18 Insulin Aspart (*Bkc) 100 Units/Ml SUB-Q 2 units TIDWM SAAD Administration Protocol Insulin Aspart 1 - 2 units 06/07/25 21:00 06/08/25 20:50 Insulin Aspart (*Bkc) 100 Units/Ml SUB-Q 1 units HS SAAD Administration Protocol Insulin Glargine 3 units 06/08/25 18:00 06/08/25 17:19 Insulin Glargine (*Bkc) 100 Units/Ml SUB-Q 3 units QPM SAAD Administration Loratadine 10 mg 06/08/25 09:00 06/08/25 08:36 Loratadine 10 Mg Tablet PO 10 mg DAILY SAAD Administration Metoprolol Tartrate 50 mg 06/08/25 09:00 06/08/25 08:36 Metoprolol Tartrate 50 Mg Tab PO 50 mg DAILY SAAD Administration Mirabegron 25 mg 06/08/25 21:00 06/08/25 20:35 Mirabegron 25 Mg Er Tablet PO 25 mg HS [facility] Administration Mirtazapine 15 mg 06/08/25 21:00 06/08/25 20:35 Mirtazapine 15 Mg Tablet PO 15 mg HS SAAD Administration Miscellaneous Information 1 each 06/08/25 00:01 Vilazodone Nonformulary. Can Patient Bring From Home Or Hold Till Discharge? XX 07/08/25 00:00 CLARIFY [facility] Non-Formulary Medication 40 mg 06/09/25 09:00 Vilazodone PO 07/09/25 08:59 DAILY [facility] Senna 8.6 mg 06/08/25 09:55 06/08/25 10:45 Sennosides 8.6 Mg Tablet PO 8.6 mg DAILY SAAD Administration Tamsulosin HCl 0.4 mg 06/08/25 09:00 06/08/25 08:36 Tamsulosin Hcl 0.4 Mg Capsule PO 0.4 mg QAM [facility] Administration Torsemide 40 mg 06/09/25 09:00 Torsemide 20 Mg Tablet PO DAILY [facility] Trazodone HCl 100 mg 06/08/25 21:00 06/08/25 20:35 Trazodone Hcl 50 Mg Tablet PO 100 mg HS [facility] Administration Vitamin D 125 mcg 06/09/25 09:00 Cholecalciferol (Vitamin D3) 125 Mcg (5,000 Units) Tablet PO DAILY [facility] Radiology Results: ITS Impressions Chest X-Ray 06/07/25 06:42 IMPRESSION: 1. Left basilar atelectasis and/or airspace disease. Contusion also possible given age indeterminate rib fracture left rib 5.. Chest/Abdomen/Pelvis CT 06/07/25 15:17 IMPRESSION: 1. Black catheter balloon in abnormal position in the prostate. 2. Mild bilateral external iliac lymphadenopathy, likely reactive. 3. Cholelithiasis. Gallbladder distention may be secondary to fasting. Correlate with physical exam to exclude acute cholecystitis. Labs Labs: Laboratory Results - last 24 hr 06/07/25 06/08/25 06/08/25 18:40 11:08 12:58 WBC RBC Hgb Hct MCV MCH MCHC RDW Plt Count MPV Immature Gran % (Auto) Neut % (Auto) Lymph % (Auto) [place] % (Auto) Eos % (Auto) Baso % (Auto) Lymph # (Auto) [place] # (Auto) Eos # (Auto) Baso # (Auto) Abs Immat Gran (auto) Absolute Neuts (auto) Absolute Nucleated RBC Nucleated RBC % Sodium Potassium Chloride Carbon Dioxide Anion Gap BUN Creatinine Estim Creat Clear Calc Estimated GFR Glucose POC Capillary Glucose 250 H 231 H Calcium Magnesium Procalcitonin Nasal RSV Type A (PCR) Cancelled Nasal RSV Type B (PCR) Cancelled Chlamy pneumoniae PCR Cancelled Adenovirus DNA Cancelled Human Bocavirus (TRAV) Cancelled Coronavirus Type OC43 Cancelled Coronavirus Type HKU1 Cancelled Coronavirus Type 229E Cancelled Coronavirus Type NL63 Cancelled Human Metapneumovir PCR Cancelled Influenza A (PCR) Cancelled Influenza A (H1) RNA Cancelled Influenza A (H3) PCR Cancelled M. pneumoniae DNA Cancelled Parainfluenza PCR Cancelled Parainfluenza 2 (PCR) Cancelled Parainfluenza 3 RNA (PCR) Cancelled Parainfluenza 4 (PCR) Cancelled Rhino/Enterovirus (TRAV) Cancelled SARS-CoV-2 RNA (RT-PCR) Cancelled Influenza Type B (PCR) Cancelled Misc Test Comment Cancelled 06/08/25 06/08/25 06/09/25 16:38 20:22 03:31 WBC 11.5 H RBC 3.47 L Hgb 9.7 L Hct 32.1 L MCV 92.5 MCH 28.0 MCHC 30.2 L RDW 15.3 H Plt Count 185 MPV 10.5 H Immature Gran % (Auto) 0.4 Neut % (Auto) 86.7 H Lymph % (Auto) 7.1 L [place] % (Auto) 5.5 Eos % (Auto) 0.1 Baso % (Auto) 0.2 Lymph # (Auto) 0.81 L [place] # (Auto) 0.6 Eos # (Auto) 0.0 Baso # (Auto) 0.0 Abs Immat Gran (auto) 0.05 H Absolute Neuts (auto) 9.9 H Absolute Nucleated RBC 0.000 Nucleated RBC % 0.0 Sodium 138 Potassium 3.8 Chloride 104 Carbon Dioxide 30 Anion Gap 4 BUN 31 H Creatinine 1.50 H Estim Creat Clear Calc 60 Estimated GFR 46 L Glucose 233 H POC Capillary Glucose 243 H 226 H Calcium 8.1 L Magnesium 2.4 H Procalcitonin 4.8 Nasal RSV Type A (PCR) Nasal RSV Type B (PCR) Chlamy pneumoniae PCR Adenovirus DNA Human Bocavirus (TRAV) Coronavirus Type OC43 Coronavirus Type HKU1 Coronavirus Type 229E Coronavirus Type NL63 Human Metapneumovir PCR Influenza A (PCR) Influenza A (H1) RNA Influenza A (H3) PCR M. pneumoniae DNA Parainfluenza PCR Parainfluenza 2 (PCR) Parainfluenza 3 RNA (PCR) Parainfluenza 4 (PCR) Rhino/Enterovirus (TRAV) SARS-CoV-2 RNA (RT-PCR) Influenza Type B (PCR) Misc Test Comment 06/09/25 07:25 WBC RBC Hgb Hct MCV MCH MCHC RDW Plt Count MPV Immature Gran % (Auto) Neut % (Auto) Lymph % (Auto) [place] % (Auto) Eos % (Auto) Baso % (Auto) Lymph # (Auto) [place] # (Auto) Eos # (Auto) Baso # (Auto) Abs Immat Gran (auto) Absolute Neuts (auto) Absolute Nucleated RBC Nucleated RBC % Sodium Potassium Chloride Carbon Dioxide Anion Gap BUN Creatinine Estim Creat Clear Calc Estimated GFR Glucose POC Capillary Glucose 218 H Calcium Magnesium Procalcitonin Nasal RSV Type A (PCR) Nasal RSV Type B (PCR) Chlamy pneumoniae PCR Adenovirus DNA Human Bocavirus (TRAV) Coronavirus Type OC43 Coronavirus Type HKU1 Coronavirus Type 229E Coronavirus Type NL63 Human Metapneumovir PCR Influenza A (PCR) Influenza A (H1) RNA Influenza A (H3) PCR M. pneumoniae DNA Parainfluenza PCR Parainfluenza 2 (PCR) Parainfluenza 3 RNA (PCR) Parainfluenza 4 (PCR) Rhino/Enterovirus (TRAV) SARS-CoV-2 RNA (RT-PCR) Influenza Type B (PCR) Misc Test Comment
[2025-06-09] MEDS: INSULIN ASPART (*BKC) 100 UNITS/ML SUB-Q ×4 (08:55→22:36)
[2025-06-09] MEDS: FOLIC ACID 0.4 MG TABLET PO (08:57)
[2025-06-09] MEDS: APIXABAN 2.5 MG TABLET PO ×2 (08:57→20:25)
[2025-06-09] MEDS: METOPROLOL TARTRATE 50 MG TAB PO (08:57)
[2025-06-09] MEDS: SENNOSIDES 8.6 MG TABLET PO (08:57)
[2025-06-09] MEDS: TORSEMIDE 20 MG TABLET 40 MG PO (08:57)
[2025-06-09] MEDS: FERROUS SULFATE 325 MG TABLET PO (08:57)
[2025-06-09] MEDS: DOCUSATE SODIUM 100 MG CAPSULE PO ×2 (08:57→20:25)
[2025-06-09] MEDS: LORATADINE 10 MG TABLET PO (08:57)
[2025-06-09] MEDS: TAMSULOSIN HCL 0.4 MG CAPSULE PO (08:57)
[2025-06-09] MEDS: CHOLECALCIFEROL (VITAMIN D3) 125 MCG (5,000 UNITS) TABLET PO (08:58)
[2025-06-09] MEDS: CEFEPIME 2 GM in SODIUM CHLORIDE 0.9% IV 50 ML 100 ML IVPB ×2 (08:59→20:26)
[2025-06-09] MEDS: AZITHROMYCIN IV 500 MG in SODIUM CHLORIDE 0.9% IV 250 ML IVPB (08:59)
--- NOTE | 2025-06-09 11:46 | PC.NURSE ---
This patient, Eliezer Pierson, was transferred to [[id number] ] on 06/09/25 at 1146. Personal belongings sent with patient. Report given to [sondra ]. Appropriate documentation sent with patient.
[2025-06-09] MEDS: INSULIN GLARGINE (*BKC) 100 UNITS/ML SUB-Q (17:00)
[2025-06-09] MEDS: ATORVASTATIN 20 MG TABLET PO (17:00)
[2025-06-09] MEDS: MIRTAZAPINE 15 MG TABLET PO (20:25)
[2025-06-09] MEDS: MIRABEGRON 25 MG ER TABLET PO (20:25)
[2025-06-09] MEDS: ACETAMINOPHEN 325 MG TABLET 650 MG PO (22:36)
[2025-06-10] VITALS (15 sets, daily range): BP systolic 134–185; BP diastolic 63–86; PULSE 52–89; RESP 14–20; TEMP 36.4–37.2; O2SAT 92–98
[2025-06-10] MEDS: IPRATROPIUM 0.5 MG/ALBUTEROL SULFATE 2.5 MG AMPUL.NEB 3 ML INHALATION ×3 (01:26→14:21)
[2025-06-10 05:00] LABS: Hematocrit 33.0 % (42.0-52.0); Hemoglobin 9.9 g/dL (14.0-18.0); Immature Granulocyte Percent A 0.6 % (0-0.5); Lymphocytes Absolute Auto 1.40 K/mm3 (0.9-3.2); Mean Corpuscular HGB Conc 30.0 g/dl (32-36); Mean Corpuscular Hemoglobin 27.4 pg (26-34); Mean Corpuscular Volume 91.4 fl (80-100); Nucleated Red Blood Cells Absolute Auto 0.000 K/mm3 (0.0-0.012); Nucleated Red Blood Cells Perc 0.0 % (0.0-0.2); Platelet Count Result 178 k/mm3 (150-375); Red Blood Count 3.61 M/mm3 (4.6-6.20); White Blood Count 8.6 K/mm3 (4.5-10.0)
[2025-06-10 05:25] LABS: Anion Gap 6 mmol/L (4-12); Blood Urea Nitrogen 26 mg/dL (9-20); Calcium 8.2 mg/dL (8.4-10.2); Carbon Dioxide 32 mmol/L (22-30); Chloride 100 mmol/L (98-107); Estimated CRCL calculation 63 ml/min; Estimated Glomerular Filt Rate 53; Glucose 268 mg/dL (65-110); Magnesium 2.1 mg/dL (1.6-2.3); Potassium 3.3 mmol/L (3.4-5.0); Sodium 138 mmol/L (137-145)
[2025-06-10 05:42] LABS: Procalcitonin 2.2 ng/mL
[2025-06-10] MEDS: FOLIC ACID 0.4 MG TABLET PO (08:36)
[2025-06-10] MEDS: CHOLECALCIFEROL (VITAMIN D3) 125 MCG (5,000 UNITS) TABLET PO (08:36)
[2025-06-10] MEDS: TORSEMIDE 20 MG TABLET 40 MG PO (08:36)
[2025-06-10] MEDS: DOCUSATE SODIUM 100 MG CAPSULE PO ×2 (08:36→20:15)
[2025-06-10] MEDS: METOPROLOL TARTRATE 50 MG TAB PO (08:36)
[2025-06-10] MEDS: FERROUS SULFATE 325 MG TABLET PO (08:37)
[2025-06-10] MEDS: LORATADINE 10 MG TABLET PO (08:37)
[2025-06-10] MEDS: SENNOSIDES 8.6 MG TABLET PO (08:37)
[2025-06-10] MEDS: HYDROCORTISONE SODIUM SUCCINATE 100 MG/2 ML VIAL 50 MG IV PUSH (08:37)
[2025-06-10] MEDS: APIXABAN 2.5 MG TABLET PO ×2 (08:37→20:16)
[2025-06-10] MEDS: CEFEPIME 2 GM in SODIUM CHLORIDE 0.9% IV 50 ML 100 ML IVPB (08:37)
[2025-06-10] MEDS: TAMSULOSIN HCL 0.4 MG CAPSULE PO (08:37)
[2025-06-10] MEDS: INSULIN ASPART (*BKC) 100 UNITS/ML SUB-Q ×4 (08:38→20:31)
[2025-06-10] MEDS: AZITHROMYCIN IV 500 MG in SODIUM CHLORIDE 0.9% IV 250 ML IVPB (08:38)
[2025-06-10] MEDS: ESCITALOPRAM OXALATE 10 MG TABLET PO (12:54)
--- NOTE | 2025-06-10 17:15 | PM.IMPN ---
Progress Note: A&P Assessment and Plan (1) Acute hypoxemic respiratory failure: Code(s): J96.01 - Acute respiratory failure with hypoxia Status: Acute (2) Pneumonia: Code(s): J18.9 - Pneumonia, unspecified organism Status: Acute (3) COPD exacerbation: Code(s): J44.1 - Chronic obstructive pulmonary disease with (acute) exacerbation Status: Acute (4) Sepsis: Code(s): A41.9 - Sepsis, unspecified organism Status: Acute Plan Sepsis resolved. Procalcitonin elevated. Will continue to trend that. Follow-up blood cultures. Pending Legionella pneumococcus and full viral respiratory pathogen panel. Pneumonia versus bronchitis. Change antibiotics to Levaquin. Serum creatinine improving. Continue to trend. Decrease hydrocortisone to 50 mg IV q.a.m.. Continue PATIENT ACCOUNTS MANAGER medications including trazodone, torsemide, senna, mirtazapine, Mirabegron, apixaban 2.5 mg p.o. b.i.d., atorvastatin, metoprolol. Restart hydralazine and escitalopram on 06/10/2025. Holding PATIENT ACCOUNTS MANAGER amlodipine and zolpidem Patient wishes to be DNR. Heart healthy diet. Fall precautions, PT/OT. Continue PATIENT ACCOUNTS MANAGER Eliquis 2.5 mg p.o. b.i.d.. Saline lock IV. Stable on medical floor. Continue telemetry. Time Spent With Patient Time with patient: Greater than 35 minutes Subjective Date/time seen: 06/10/25 17:15 Interval history: No major events. Patient denies any symptomatology. He had an episode today where he was crying up for his who is . He returned to normal after. He does have dementia. Review of Systems Review of Systems: All systems reviewed & are unremarkable except as noted in HPI and below (Subjective) Exam Const: General: comfortable and no acute distress Other: A&O x3, obese. HENMT: Mouth: Yes moist mucous membranes Eyes: Pupils: Equal, round and reactive pupils present Neck: Neck: supple Resp: Effort & Inspection: normal respiratory effort Auscultation: clear to auscultation bilaterally Cardio: Rate: regular rate Rhythm: regular rhythm Heart sounds: no murmurs GI: Inspection: non-distended GI Palp: Yes Soft to palpation Neuro: Motor exam (neuro): 5/5 motor strength present throughout Extrem: General: edema Other: Trace pitting edema bilateral lower extremities with lipodermatosclerosis Objective Data Vital Signs Vital Signs: Vital Signs - 24 hr 06/09/25 18:19 06/09/25 20:00 06/09/25 20:00 Temperature 98.1 F 97.5 F L Pulse Rate 64 88 Respiratory Rate 18 16 Blood Pressure 151/69 H 119/82 Pulse Oximetry 97 96 93 Oxygen Delivery High Flow Therapy with Na Oxygen Flow Rate 2.5 06/09/25 20:00 06/09/25 20:45 06/09/25 20:54 Temperature Pulse Rate 74 58 L 60 Respiratory Rate 20 20 Blood Pressure Pulse Oximetry Oxygen Delivery Oxygen Flow Rate 06/09/25 20:55 06/10/25 00:00 06/10/25 00:00 Temperature 98.0 F Pulse Rate 54 L 61 Respiratory Rate 14 Blood Pressure 146/69 H Pulse Oximetry 93 98 Oxygen Delivery High Flow Therapy with Na Oxygen Flow Rate 4 06/10/25 01:27 06/10/25 01:35 06/10/25 04:00 Temperature Pulse Rate 59 L 58 L 52 L Respiratory Rate 20 20 Blood Pressure Pulse Oximetry Oxygen Delivery Oxygen Flow Rate 06/10/25 05:00 06/10/25 07:04 06/10/25 08:30 Temperature 97.6 F Pulse Rate 60 60 Respiratory Rate 16 18 Blood Pressure 138/63 Pulse Oximetry 95 92 Oxygen Delivery High Flow Nasal Cannula Oxygen Flow Rate 2 06/10/25 08:30 06/10/25 08:36 06/10/25 10:03 Temperature Pulse Rate 65 72 89 Respiratory Rate 19 Blood Pressure 173/73 H Pulse Oximetry 98 Oxygen Delivery Oxygen Flow Rate 06/10/25 12:00 06/10/25 12:00 06/10/25 14:23 Temperature 97.9 F Pulse Rate 66 63 64 Respiratory Rate 19 18 Blood Pressure 185/78 H Pulse Oximetry 92 Oxygen Delivery Oxygen Flow Rate 06/10/25 14:45 06/10/25 16:00 Temperature 98.9 F Pulse Rate 75 64 Respiratory Rate 18 Blood Pressure 141/68 H Pulse Oximetry 96 Oxygen Delivery Oxygen Flow Rate Intake/Output Intake/Output: Intake & Output 06/07/25 06/08/25 06/09/25 06/10/25 23:59 23:59 23:59 23:59 Intake Total 3930 2400 2860 962 Output Total 450 1500 1930 1700 Balance 3480 344 619 -045 Meds/Results Medications: Active Medications Generic Name Dose Route Start Last Admin Trade Name Lizzette PRN Reason Stop Dose Admin Acetaminophen 650 mg 06/07/25 07:05 06/09/25 22:36 Acetaminophen 325 Mg Tablet PO 650 mg Q4H PRN Administration Mild Pain (1-3) or Fever Albuterol/Ipratropium 3 ml 06/07/25 20:00 06/10/25 14:21 Ipratropium 0.5 Mg/Albuterol Sulfate 2.5 Mg Ampul.Neb 3 Ml INHALATION 3 ml Q6HRT SAAD Administration Amlodipine Besylate 10 mg 06/10/25 12:25 06/10/25 12:54 Amlodipine Besylate 10 Mg Tablet PO 10 mg DAILY SAAD Administration Apixaban 2.5 mg 06/08/25 09:10 06/10/25 08:37 Apixaban 2.5 Mg Tablet PO 2.5 mg Q12HR SAAD Administration Atorvastatin Calcium 20 mg 06/08/25 18:00 06/09/25 17:00 Atorvastatin 20 Mg Tablet PO 20 mg QPM SAAD Administration Dextrose 12.5 gm 06/07/25 18:17 Dextrose 50% 25 Gm/50 Ml Syringe IV PUSH PRN PRN Hypoglycemia Protocol Docusate Sodium 100 mg 06/09/25 09:00 06/10/25 08:36 Docusate Sodium 100 Mg Capsule PO 100 mg Q12HR SAAD Administration Escitalopram Oxalate 10 mg 06/10/25 12:25 06/10/25 12:54 Escitalopram Oxalate 10 Mg Tablet PO 10 mg DAILY SAAD Administration Ferrous Sulfate 325 mg 06/08/25 09:00 06/10/25 08:37 Ferrous Sulfate 325 Mg Tablet PO 325 mg DAILY SAAD Administration Folic Acid 0.4 mg 06/09/25 09:00 06/10/25 08:36 Folic Acid 0.4 Mg Tablet PO 0.4 mg DAILY SAAD Administration Glucose 15 gm 06/07/25 18:17 Glucose Oral Gel 15 Gm Of Glucse In 37.5 Gm Tube PO PRN PRN Hypoglycemia Protocol Hydralazine HCl 100 mg 06/10/25 13:00 06/10/25 12:54 Hydralazine Hcl 50 Mg Tablet PO 100 mg TID SAAD Administration Hydrocortisone Sodium Succinate 50 mg 06/09/25 09:00 06/10/25 08:37 Hydrocortisone Sodium Succinate 100 Mg/2 Ml Vial IV PUSH 50 mg Q12H SAAD Administration Dextrose 1,000 mls @ 100 mls/hr 06/07/25 18:17 Dextrose 5% 1,000 Ml IVPB PRN PRN Hypoglycemia Protocol Insulin Aspart 2 - 5 units 06/08/25 08:00 06/10/25 12:55 Insulin Aspart (*Bkc) 100 Units/Ml SUB-Q 2 units TIDWM SAAD Administration Protocol Insulin Aspart 1 - 2 units 06/07/25 21:00 06/09/25 22:36 Insulin Aspart (*Bkc) 100 Units/Ml SUB-Q 1 units HS SAAD Administration Protocol Insulin Glargine 3 units 06/08/25 18:00 06/09/25 17:00 Insulin Glargine (*Bkc) 100 Units/Ml SUB-Q 3 units QPM SAAD Administration Levofloxacin 750 mg 06/10/25 21:00 Levofloxacin 750 Mg Tablet PO 06/13/25 21:01 QHS SAAD Loratadine 10 mg 06/08/25 09:00 06/10/25 08:37 Loratadine 10 Mg Tablet PO 10 mg DAILY SAAD Administration Metoprolol Tartrate 50 mg 06/08/25 09:00 06/10/25 08:36 Metoprolol Tartrate 50 Mg Tab PO 50 mg DAILY SAAD Administration Mirabegron 25 mg 06/08/25 21:00 06/09/25 20:25 Mirabegron 25 Mg Er Tablet PO 25 mg HS SAAD Administration Mirtazapine 15 mg 06/08/25 21:00 06/09/25 20:25 Mirtazapine 15 Mg Tablet PO 15 mg HS SAAD Administration Miscellaneous Information 1 each 06/08/25 00:01 Vilazodone Nonformulary. Can Patient Bring From Home Or Hold Till Discharge? XX 07/08/25 00:00 CLARIFY SAAD Non-Formulary Medication 40 mg 06/09/25 09:00 Vilazodone PO 07/09/25 08:59 DAILY SAAD Potassium Chloride 20 meq 06/10/25 17:13 Potassium Chloride 20 Meq Er Tablet PO 06/10/25 17:14 ONCE ONE Senna 8.6 mg 06/08/25 09:55 06/10/25 08:37 Sennosides 8.6 Mg Tablet PO 8.6 mg DAILY SAAD Administration Tamsulosin HCl 0.4 mg 06/08/25 09:00 06/10/25 08:37 Tamsulosin Hcl 0.4 Mg Capsule PO 0.4 mg QAM SAAD Administration Torsemide 40 mg 06/09/25 09:00 06/10/25 08:36 Torsemide 20 Mg Tablet PO 40 mg DAILY SAAD Administration Trazodone HCl 100 mg 06/08/25 21:00 06/09/25 20:25 Trazodone Hcl 50 Mg Tablet PO 100 mg HS SAAD Administration Vitamin D 125 mcg 06/09/25 09:00 06/10/25 08:36 Cholecalciferol (Vitamin D3) 125 Mcg (5,000 Units) Tablet PO 125 mcg DAILY SAAD Administration Radiology Results: ITS Impressions Chest X-Ray 06/07/25 06:42 IMPRESSION: 1. Left basilar atelectasis and/or airspace disease. Contusion also possible given age indeterminate rib fracture left rib 5.. Chest/Abdomen/Pelvis CT 06/07/25 15:17 IMPRESSION: 1. Black catheter balloon in abnormal position in the prostate. 2. Mild bilateral external iliac lymphadenopathy, likely reactive. 3. Cholelithiasis. Gallbladder distention may be secondary to fasting. Correlate with physical exam to exclude acute cholecystitis. Labs Labs: Laboratory Results - last 24 hr 06/07/25 06/09/25 06/10/25 18:40 22:29 04:43 WBC 8.6 RBC 3.61 L Hgb 9.9 L Hct 33.0 L MCV 91.4 MCH 27.4 MCHC 30.0 L RDW 14.8 H Plt Count 178 MPV 10.1 Immature Gran % (Auto) 0.6 H Neut % (Auto) 76.3 H Lymph % (Auto) 16.4 L [place] % (Auto) 6.1 Eos % (Auto) 0.1 Baso % (Auto) 0.5 Lymph # (Auto) 1.40 [place] # (Auto) 0.5 Eos # (Auto) 0.0 Baso # (Auto) 0.0 Abs Immat Gran (auto) 0.05 H Absolute Neuts (auto) 6.5 Absolute Nucleated RBC 0.000 Nucleated RBC % 0.0 Sodium 138 Potassium 3.3 L Chloride 100 Carbon Dioxide 32 H Anion Gap 6 BUN 26 H Creatinine 1.33 H Estim Creat Clear Calc 63 Estimated GFR 53 L Glucose 268 H POC Capillary Glucose 244 H Calcium 8.2 L Magnesium 2.1 Procalcitonin 2.2 Chlamy pneumoniae PCR Not detected Adenovirus (PCR) Not detected B. pertussis DNA (PCR) Not detected B.parapertussis DNA PCR Not detected Coronavirus OC43 (PCR) Not detected Coronavirus HKU1 (PCR) Not detected Coronavirus 229E (PCR) Not detected Coronavirus NL63 (PCR) Not detected Human Metapneumovir PCR Not detected Influenza A (H1) PCR Not detected Influ A () PCR Not detected Influenza A (H3) PCR Not detected Influenza Type A (PCR) Not detected Influenza Type B (PCR) Not detected M. pneumoniae (PCR) Not detected Parainfluenza 1 (PCR) Not detected Parainfluenza 2 (PCR) Not detected Parainfluenza 3 (PCR) Not detected Parainfluenza 4 (PCR) Not detected RSV (PCR) Not detected Entero/Rhino (PCR) Detected A SARS-CoV-2 (PCR) Not detected 06/10/25 06/10/25 08:03 11:36 WBC RBC Hgb Hct MCV MCH MCHC RDW Plt Count MPV Immature Gran % (Auto) Neut % (Auto) Lymph % (Auto) [place] % (Auto) Eos % (Auto) Baso % (Auto) Lymph # (Auto) [place] # (Auto) Eos # (Auto) Baso # (Auto) Abs Immat Gran (auto) Absolute Neuts (auto) Absolute Nucleated RBC Nucleated RBC % Sodium Potassium Chloride Carbon Dioxide Anion Gap BUN Creatinine Estim Creat Clear Calc Estimated GFR Glucose POC Capillary Glucose 209 H 232 H Calcium Magnesium Procalcitonin Chlamy pneumoniae PCR Adenovirus (PCR) B. pertussis DNA (PCR) B.parapertussis DNA PCR Coronavirus OC43 (PCR) Coronavirus HKU1 (PCR) Coronavirus 229E (PCR) Coronavirus NL63 (PCR) Human Metapneumovir PCR Influenza A (H1) PCR Influ A () PCR Influenza A (H3) PCR Influenza Type A (PCR) Influenza Type B (PCR) M. pneumoniae (PCR) Parainfluenza 1 (PCR) Parainfluenza 2 (PCR) Parainfluenza 3 (PCR) Parainfluenza 4 (PCR) RSV (PCR) Entero/Rhino (PCR) SARS-CoV-2 (PCR)
[2025-06-10] MEDS: POTASSIUM CHLORIDE 20 MEQ ER TABLET PO (18:05)
[2025-06-10] MEDS: ATORVASTATIN 20 MG TABLET PO (18:05)
[2025-06-10] MEDS: INSULIN GLARGINE (*BKC) 100 UNITS/ML SUB-Q (18:06)
[2025-06-10] MEDS: MIRABEGRON 25 MG ER TABLET PO (20:15)
[2025-06-10] MEDS: MIRTAZAPINE 15 MG TABLET PO (20:16)
[2025-06-11] VITALS (14 sets, daily range): BP systolic 131–159; BP diastolic 60–82; PULSE 58–79; RESP 18–20; TEMP 36.4–36.6; O2SAT 90–95
[2025-06-11 05:22] LABS: Hematocrit 33.9 % (42.0-52.0); Hemoglobin 10.4 g/dL (14.0-18.0); Immature Granulocyte Percent A 0.7 % (0-0.5); Lymphocytes Absolute Auto 2.17 K/mm3 (0.9-3.2); Mean Corpuscular HGB Conc 30.7 g/dl (32-36); Mean Corpuscular Hemoglobin 28.0 pg (26-34); Mean Corpuscular Volume 91.1 fl (80-100); Nucleated Red Blood Cells Absolute Auto 0.000 K/mm3 (0.0-0.012); Nucleated Red Blood Cells Perc 0.0 % (0.0-0.2); Platelet Count Result 192 k/mm3 (150-375); Red Blood Count 3.72 M/mm3 (4.6-6.20); White Blood Count 8.1 K/mm3 (4.5-10.0)
[2025-06-11 05:45] LABS: Anion Gap 4 mmol/L (4-12); Blood Urea Nitrogen 29 mg/dL (9-20); Calcium 8.3 mg/dL (8.4-10.2); Carbon Dioxide 34 mmol/L (22-30); Chloride 98 mmol/L (98-107); Estimated CRCL calculation 59 ml/min; Estimated Glomerular Filt Rate 48; Glucose 173 mg/dL (65-110); Magnesium 2.0 mg/dL (1.6-2.3); Potassium 2.8 mmol/L (3.4-5.0); Sodium 136 mmol/L (137-145)
[2025-06-11 05:59] LABS: Procalcitonin 1.1 ng/mL
[2025-06-11] MEDS: POTASSIUM CHLORIDE 20 MEQ ER TABLET PO ×2 (06:15→17:43)
[2025-06-11] MEDS: IPRATROPIUM 0.5 MG/ALBUTEROL SULFATE 2.5 MG AMPUL.NEB 3 ML INHALATION ×2 (08:15→19:40)
[2025-06-11] MEDS: DOCUSATE SODIUM 100 MG CAPSULE PO ×2 (10:15→21:32)
[2025-06-11] MEDS: TAMSULOSIN HCL 0.4 MG CAPSULE PO (10:15)
[2025-06-11] MEDS: FERROUS SULFATE 325 MG TABLET PO (10:15)
[2025-06-11] MEDS: TORSEMIDE 20 MG TABLET 40 MG PO (10:15)
[2025-06-11] MEDS: APIXABAN 2.5 MG TABLET PO ×2 (10:15→21:32)
[2025-06-11] MEDS: FOLIC ACID 0.4 MG TABLET PO (10:15)
[2025-06-11] MEDS: ESCITALOPRAM OXALATE 10 MG TABLET PO (10:15)
[2025-06-11] MEDS: SENNOSIDES 8.6 MG TABLET PO (10:15)
[2025-06-11] MEDS: HYDROCORTISONE SODIUM SUCCINATE 100 MG/2 ML VIAL 50 MG IV PUSH (10:16)
[2025-06-11] MEDS: CHOLECALCIFEROL (VITAMIN D3) 125 MCG (5,000 UNITS) TABLET PO (10:16)
[2025-06-11] MEDS: LORATADINE 10 MG TABLET PO (10:16)
[2025-06-11] MEDS: METOPROLOL TARTRATE 50 MG TAB PO (10:16)
[2025-06-11 10:31] LABS: Potassium 3.2 mmol/L (3.4-5.0)
--- NOTE | 2025-06-11 16:49 | PM.IMPN ---
Progress Note: A&P Assessment and Plan (1) Acute hypoxemic respiratory failure: Code(s): J96.01 - Acute respiratory failure with hypoxia Status: Acute (2) Pneumonia: Code(s): J18.9 - Pneumonia, unspecified organism Status: Acute (3) COPD exacerbation: Code(s): J44.1 - Chronic obstructive pulmonary disease with (acute) exacerbation Status: Acute (4) Sepsis: Code(s): A41.9 - Sepsis, unspecified organism Status: Acute Plan Sepsis resolved. Procalcitonin elevated. Will continue to trend that. Follow-up blood cultures. Pending Legionella pneumococcus and full viral respiratory pathogen panel. Pneumonia versus bronchitis. Change antibiotics to Levaquin. Serum creatinine improving. Continue to trend. Last dose of hydrocortisone 25 mg IV push x1 on 06/12/2020 5:00 a.m.. Hypokalemia, replaced, improved. Continue to replace and recheck. Currently on 2 L nasal cannula. Discussed with nursing, will attempt to wean. Continue DuoNebs q.6 hours. Continue [employer] medications including trazodone, torsemide, senna, mirtazapine, Mirabegron, apixaban 2.5 mg p.o. b.i.d., atorvastatin, metoprolol. Restart hydralazine and escitalopram on 06/10/2025. Holding [employer] amlodipine and zolpidem Patient wishes to be DNR. Heart healthy diet. Fall precautions, PT/OT. Continue [employer] Eliquis 2.5 mg p.o. b.i.d.. Saline lock IV. Stable on medical floor. Continue telemetry. Time Spent With Patient Time with patient: Greater than 35 minutes Subjective Date/time seen: 06/11/25 16:49 Interval history: No major events. Patient denies any symptomatology. Review of Systems Review of Systems: All systems reviewed & are unremarkable except as noted in HPI and below (Subjective) Exam Const: General: comfortable and no acute distress Other: A&O x3, obese. HENMT: Mouth: Yes moist mucous membranes Eyes: Pupils: Equal, round and reactive pupils present Neck: Neck: supple Resp: Effort & Inspection: normal respiratory effort Auscultation: clear to auscultation bilaterally Cardio: Rate: regular rate Rhythm: regular rhythm Heart sounds: no murmurs GI: Inspection: non-distended GI Palp: Yes Soft to palpation Neuro: Motor exam (neuro): 5/5 motor strength present throughout Extrem: General: edema Other: Trace pitting edema bilateral lower extremities with lipodermatosclerosis Objective Data Vital Signs Vital Signs: Vital Signs - 24 hr 06/10/25 20:00 06/10/25 20:00 06/10/25 20:00 Temperature 97.7 F Pulse Rate 65 65 Respiratory Rate 18 Blood Pressure 165/86 H Pulse Oximetry 95 95 Oxygen Delivery High Flow Nasal Cannula Oxygen Flow Rate 2 Fraction of Inspired Oxygen 06/10/25 23:40 06/11/25 00:00 06/11/25 04:00 Temperature 97.9 F Pulse Rate 68 61 60 Respiratory Rate 20 Blood Pressure 134/63 Pulse Oximetry 93 Oxygen Delivery Oxygen Flow Rate Fraction of Inspired Oxygen 06/11/25 04:00 06/11/25 08:00 06/11/25 08:15 Temperature 97.9 F Pulse Rate 62 68 65 Respiratory Rate 20 20 20 Blood Pressure 145/60 H Pulse Oximetry 94 92 92 Oxygen Delivery Nasal Cannula Nasal Cannula Oxygen Flow Rate 2 2 Fraction of Inspired Oxygen 28 06/11/25 08:16 06/11/25 08:32 06/11/25 10:16 Temperature Pulse Rate 65 68 68 Respiratory Rate 20 20 Blood Pressure Pulse Oximetry Oxygen Delivery Oxygen Flow Rate Fraction of Inspired Oxygen 06/11/25 15:51 Temperature 97.5 F L Pulse Rate 65 Respiratory Rate 20 Blood Pressure 131/82 Pulse Oximetry 95 Oxygen Delivery Oxygen Flow Rate Fraction of Inspired Oxygen Intake/Output Intake/Output: Intake & Output 06/08/25 06/09/25 06/10/25 06/11/25 23:59 23:59 23:59 23:59 Intake Total 2400 2860 1202 780 Output Total 1500 1930 2800 2100 Balance 900 755 -4078 -3065 Meds/Results Medications: Active Medications Generic Name Dose Route Start Last Admin Trade Name Freq PRN Reason Stop Dose Admin Acetaminophen 650 mg 06/07/25 07:05 06/09/25 22:36 Acetaminophen 325 Mg Tablet PO 650 mg Q4H PRN Administration Mild Pain (1-3) or Fever Albuterol/Ipratropium 3 ml 06/07/25 20:00 06/11/25 08:15 Ipratropium 0.5 Mg/Albuterol Sulfate 2.5 Mg Ampul.Neb 3 Ml INHALATION 3 ml Q6HRT SAAD Administration Amlodipine Besylate 10 mg 06/10/25 12:25 06/11/25 10:15 Amlodipine Besylate 10 Mg Tablet PO 10 mg DAILY SAAD Administration Apixaban 2.5 mg 06/08/25 09:10 06/11/25 10:15 Apixaban 2.5 Mg Tablet PO 2.5 mg Q12HR SAAD Administration Atorvastatin Calcium 20 mg 06/08/25 18:00 06/10/25 18:05 Atorvastatin 20 Mg Tablet PO 20 mg QPM SAAD Administration Dextrose 12.5 gm 06/07/25 18:17 Dextrose 50% 25 Gm/50 Ml Syringe IV PUSH PRN PRN Hypoglycemia Protocol Docusate Sodium 100 mg 06/09/25 09:00 06/11/25 10:15 Docusate Sodium 100 Mg Capsule PO 100 mg Q12HR SAAD Administration Escitalopram Oxalate 10 mg 06/10/25 12:25 06/11/25 10:15 Escitalopram Oxalate 10 Mg Tablet PO 10 mg DAILY SAAD Administration Ferrous Sulfate 325 mg 06/08/25 09:00 06/11/25 10:15 Ferrous Sulfate 325 Mg Tablet PO 325 mg DAILY SAAD Administration Folic Acid 0.4 mg 06/09/25 09:00 06/11/25 10:15 Folic Acid 0.4 Mg Tablet PO 0.4 mg DAILY SAAD Administration Glucose 15 gm 06/07/25 18:17 Glucose Oral Gel 15 Gm Of Glucse In 37.5 Gm Tube PO PRN PRN Hypoglycemia Protocol Hydralazine HCl 100 mg 06/10/25 13:00 06/11/25 12:17 Hydralazine Hcl 50 Mg Tablet PO 100 mg TID SAAD Administration Hydrocortisone Sodium Succinate 25 mg 06/12/25 09:00 Hydrocortisone Sodium Succinate 100 Mg/2 Ml Vial IV PUSH 06/12/25 09:01 ONCE ONE Dextrose 1,000 mls @ 100 mls/hr 06/07/25 18:17 Dextrose 5% 1,000 Ml IVPB PRN PRN Hypoglycemia Protocol Insulin Aspart 2 - 5 units 06/08/25 08:00 06/11/25 12:17 Insulin Aspart (*Bkc) 100 Units/Ml SUB-Q Not Given TIDWM SAAD Protocol Insulin Aspart 1 - 2 units 06/07/25 21:00 06/10/25 20:31 Insulin Aspart (*Bkc) 100 Units/Ml SUB-Q 1 units HS SAAD Administration Protocol Insulin Glargine 3 units 06/08/25 18:00 06/10/25 18:06 Insulin Glargine (*Bkc) 100 Units/Ml SUB-Q 3 units QPM SAAD Administration Levofloxacin 750 mg 06/10/25 21:00 06/10/25 20:16 Levofloxacin 750 Mg Tablet PO 06/13/25 21:01 750 mg QHS SAAD Administration Loratadine 10 mg 06/08/25 09:00 06/11/25 10:16 Loratadine 10 Mg Tablet PO 10 mg DAILY SAAD Administration Metoprolol Tartrate 50 mg 06/08/25 09:00 06/11/25 10:16 Metoprolol Tartrate 50 Mg Tab PO 50 mg DAILY SAAD Administration Mirabegron 25 mg 06/08/25 21:00 06/10/25 20:15 Mirabegron 25 Mg Er Tablet PO 25 mg HS SAAD Administration Mirtazapine 15 mg 06/08/25 21:00 06/10/25 20:16 Mirtazapine 15 Mg Tablet PO 15 mg HS SAAD Administration Miscellaneous Information 1 each 06/08/25 00:01 Vilazodone Nonformulary. Can Patient Bring From Home Or Hold Till Discharge? XX 07/08/25 00:00 CLARIFY SAAD Non-Formulary Medication 40 mg 06/09/25 09:00 Vilazodone PO 07/09/25 08:59 DAILY SAAD Potassium Chloride 20 meq 06/12/25 09:00 Potassium Chloride 20 Meq Er Tablet PO DAILY SAAD Senna 8.6 mg 06/08/25 09:55 06/11/25 10:15 Sennosides 8.6 Mg Tablet PO 8.6 mg DAILY SAAD Administration Tamsulosin HCl 0.4 mg 06/08/25 09:00 06/11/25 10:15 Tamsulosin Hcl 0.4 Mg Capsule PO 0.4 mg QAM SAAD Administration Torsemide 40 mg 06/09/25 09:00 06/11/25 10:15 Torsemide 20 Mg Tablet PO 40 mg DAILY SAAD Administration Trazodone HCl 100 mg 06/08/25 21:00 06/10/25 20:15 Trazodone Hcl 50 Mg Tablet PO 100 mg HS SAAD Administration Vitamin D 125 mcg 06/09/25 09:00 06/11/25 10:16 Cholecalciferol (Vitamin D3) 125 Mcg (5,000 Units) Tablet PO 125 mcg DAILY SAAD Administration Radiology Results: ITS Impressions Chest X-Ray 06/07/25 06:42 IMPRESSION: 1. Left basilar atelectasis and/or airspace disease. Contusion also possible given age indeterminate rib fracture left rib 5.. Chest/Abdomen/Pelvis CT 06/07/25 15:17 IMPRESSION: 1. Black catheter balloon in abnormal position in the prostate. 2. Mild bilateral external iliac lymphadenopathy, likely reactive. 3. Cholelithiasis. Gallbladder distention may be secondary to fasting. Correlate with physical exam to exclude acute cholecystitis. Labs Labs: Laboratory Results - last 24 hr 06/10/25 06/10/25 06/11/25 17:04 20:26 04:59 WBC 8.1 RBC 3.72 L Hgb 10.4 L Hct 33.9 L MCV 91.1 MCH 28.0 MCHC 30.7 L RDW 14.7 H Plt Count 192 MPV 9.7 Immature Gran % (Auto) 0.7 H Neut % (Auto) 61.8 Lymph % (Auto) 26.9 [place] % (Auto) 7.7 Eos % (Auto) 2.0 Baso % (Auto) 0.9 Lymph # (Auto) 2.17 [place] # (Auto) 0.6 Eos # (Auto) 0.2 Baso # (Auto) 0.1 Abs Immat Gran (auto) 0.06 H Absolute Neuts (auto) 5.0 Absolute Nucleated RBC 0.000 Nucleated RBC % 0.0 Sodium 136 L Potassium 2.8 L* Chloride 98 Carbon Dioxide 34 H Anion Gap 4 BUN 29 H Creatinine 1.43 H Estim Creat Clear Calc 59 Estimated GFR 48 L Glucose 173 H POC Capillary Glucose 289 H 228 H Calcium 8.3 L Magnesium 2.0 Procalcitonin 1.1 06/11/25 06/11/25 06/11/25 08:13 09:58 11:55 WBC RBC Hgb Hct MCV MCH MCHC RDW Plt Count MPV Immature Gran % (Auto) Neut % (Auto) Lymph % (Auto) [place] % (Auto) Eos % (Auto) Baso % (Auto) Lymph # (Auto) [place] # (Auto) Eos # (Auto) Baso # (Auto) Abs Immat Gran (auto) Absolute Neuts (auto) Absolute Nucleated RBC Nucleated RBC % Sodium Potassium 3.2 L Chloride Carbon Dioxide Anion Gap BUN Creatinine Estim Creat Clear Calc Estimated GFR Glucose POC Capillary Glucose 179 H 186 H Calcium Magnesium Procalcitonin
[2025-06-11 17:33] LABS: Anion Gap 9 mmol/L (4-12); Blood Urea Nitrogen 30 mg/dL (9-20); Calcium 9.0 mg/dL (8.4-10.2); Carbon Dioxide 32 mmol/L (22-30); Chloride 97 mmol/L (98-107); Estimated CRCL calculation 49 ml/min; Estimated Glomerular Filt Rate 39; Glucose 256 mg/dL (65-110); Potassium 3.6 mmol/L (3.4-5.0); Sodium 138 mmol/L (137-145)
[2025-06-11] MEDS: INSULIN GLARGINE (*BKC) 100 UNITS/ML SUB-Q (17:43)
[2025-06-11] MEDS: ATORVASTATIN 20 MG TABLET PO (17:43)
[2025-06-11] MEDS: INSULIN ASPART (*BKC) 100 UNITS/ML SUB-Q ×2 (17:44→21:34)
[2025-06-11] MEDS: MIRTAZAPINE 15 MG TABLET PO (21:33)
[2025-06-11] MEDS: MIRABEGRON 25 MG ER TABLET PO (21:33)
[2025-06-12] VITALS (14 sets, daily range): BP systolic 125–155; BP diastolic 62–86; PULSE 55–78; RESP 18–20; TEMP 36.4–36.6; O2SAT 92–99
[2025-06-12] MEDS: IPRATROPIUM 0.5 MG/ALBUTEROL SULFATE 2.5 MG AMPUL.NEB 3 ML INHALATION ×2 (01:16→08:58)
[2025-06-12 05:24] LABS: Hematocrit 34.9 % (42.0-52.0); Hemoglobin 10.5 g/dL (14.0-18.0); Immature Granulocyte Percent A 1.4 % (0-0.5); Lymphocytes Absolute Auto 2.08 K/mm3 (0.9-3.2); Mean Corpuscular HGB Conc 30.1 g/dl (32-36); Mean Corpuscular Hemoglobin 27.4 pg (26-34); Mean Corpuscular Volume 91.1 fl (80-100); Nucleated Red Blood Cells Absolute Auto 0.000 K/mm3 (0.0-0.012); Nucleated Red Blood Cells Perc 0.0 % (0.0-0.2); Platelet Count Result 202 k/mm3 (150-375); Red Blood Count 3.83 M/mm3 (4.6-6.20); White Blood Count 8.9 K/mm3 (4.5-10.0)
[2025-06-12 06:09] LABS: Anion Gap 6 mmol/L (4-12); Blood Urea Nitrogen 30 mg/dL (9-20); Calcium 8.3 mg/dL (8.4-10.2); Carbon Dioxide 32 mmol/L (22-30); Chloride 99 mmol/L (98-107); Estimated CRCL calculation 54 ml/min; Estimated Glomerular Filt Rate 44; Glucose 195 mg/dL (65-110); Potassium 2.9 mmol/L (3.4-5.0); Sodium 137 mmol/L (137-145)
[2025-06-12 06:19] LABS: Magnesium 2.0 mg/dL (1.6-2.3)
[2025-06-12] MEDS: ESCITALOPRAM OXALATE 10 MG TABLET PO (08:29)
[2025-06-12] MEDS: SENNOSIDES 8.6 MG TABLET PO (08:29)
[2025-06-12] MEDS: CHOLECALCIFEROL (VITAMIN D3) 125 MCG (5,000 UNITS) TABLET PO (08:29)
[2025-06-12] MEDS: DOCUSATE SODIUM 100 MG CAPSULE PO ×2 (08:29→22:29)
[2025-06-12] MEDS: TAMSULOSIN HCL 0.4 MG CAPSULE PO (08:29)
[2025-06-12] MEDS: APIXABAN 2.5 MG TABLET PO ×2 (08:29→22:28)
[2025-06-12] MEDS: METOPROLOL TARTRATE 50 MG TAB PO (08:29)
[2025-06-12] MEDS: FERROUS SULFATE 325 MG TABLET PO (08:29)
[2025-06-12] MEDS: LORATADINE 10 MG TABLET PO (08:30)
[2025-06-12] MEDS: FOLIC ACID 0.4 MG TABLET PO (08:30)
[2025-06-12] MEDS: TORSEMIDE 20 MG TABLET 40 MG PO (08:30)
[2025-06-12] MEDS: HYDROCORTISONE SODIUM SUCCINATE 100 MG/2 ML VIAL 25 MG IV PUSH (11:03)
[2025-06-12] MEDS: INSULIN ASPART (*BKC) 100 UNITS/ML SUB-Q ×3 (11:59→22:33)
--- NOTE | 2025-06-12 13:51 | PM.IMPN ---
Progress Note: A&P Assessment and Plan (1) Acute hypoxemic respiratory failure: Code(s): J96.01 - Acute respiratory failure with hypoxia Status: Acute (2) Pneumonia: Code(s): J18.9 - Pneumonia, unspecified organism Status: Acute (3) COPD exacerbation: Code(s): J44.1 - Chronic obstructive pulmonary disease with (acute) exacerbation Status: Acute (4) Sepsis: Code(s): A41.9 - Sepsis, unspecified organism Status: Acute Plan 75-year-old male with PMH Alzheimer's dementia (baseline A&O x 2-3, confusion fluctuates), history of CVA x3, CHF, hypertension, COPD, CKD, presents to [facility] on 06/07/2025 as he was found to be hypoxic at his local nursing facility. Subsequently admitted on 06/07/2025. Acute hypoxic respiratory failure: Wean to room air on 06/11/2025, resolved. CT chest abdomen pelvis without contrast on admission demonstrates mild bilateral external iliac lymphadenopathy, cholelithiasis, no other significant pulmonary aside from trace pleural effusions. Likely due to respiratory virus. COPD: Had some wheezing on admission, minimal exacerbation. DuoNebs are now q.6 hours p.r.n.. Upper respiratory infection with rhino virus/enterovirus: On admission patient had a pneumonia severity index which was very high, above 100. He received cefepime and vancomycin which was changed levofloxacin in since discontinued. Hydrocortisone has been weaned off as well. Sepsis present on admission due to upper respiratory infection: Resolved. 06/07/2025 blood culture x2, no growth to date. Hypertension: Initially elevated, improved after starting [employer] hydralazine. Holding [employer] amlodipine. Restart when necessary. Continue [employer] trazodone, mirtazapine, Mirabegron. History of CVA: Resume [employer] apixaban 2.5 mg p.o. b.i.d. CKD stable Insulin-dependent diabetes mellitus: Blood sugars above goal. Increase Lantus from 3-6 units q.day. continue Accu-Cheks with sliding scale. Heart failure: We do not have records, I called the patient's attending physician from the nursing facility did not know anything about the patient did advise me to call the front end specialist with records, front end specialist did not answer and I was unable to leave a message. None the less, appears euvolemic. Continue [employer] torsemide. Continue [employer] metoprolol. Hypokalemia, replace and recheck. Placing him on a daily KCl dosing due to torsemide. Patient wishes to be DNR. He is a [facility] resident at local nursing facility. Heart healthy diet. Monitor volume status Fall precautions, PT/OT. Continue [employer] Eliquis 2.5 mg p.o. b.i.d.. Saline lock IV. Stable on medical floor. Telemetry discontinued. Time Spent With Patient Time with patient: Greater than 35 minutes Subjective Date/time seen: 06/12/25 13:51 Interval history: No major events. Patient denies any symptomatology. Review of Systems Review of Systems: All systems reviewed & are unremarkable except as noted in HPI and below (Subjective) Exam Const: General: comfortable and no acute distress Other: A&O x3, obese. HENMT: Mouth: Yes moist mucous membranes Eyes: Pupils: Equal, round and reactive pupils present Neck: Neck: supple Resp: Effort & Inspection: normal respiratory effort Auscultation: clear to auscultation bilaterally Cardio: Rate: regular rate Rhythm: regular rhythm Heart sounds: no murmurs GI: Inspection: non-distended GI Palp: Yes Soft to palpation Neuro: Motor exam (neuro): 5/5 motor strength present throughout Extrem: General: edema Other: 1+ pitting edema bilateral lower extremities with overlying lipodermatosclerosis Objective Data Vital Signs Vital Signs: Vital Signs - 24 hr 06/11/25 15:51 06/11/25 16:00 06/11/25 19:40 Temperature 97.5 F L Pulse Rate 65 63 79 Respiratory Rate 20 20 Blood Pressure 131/82 Pulse Oximetry 95 Oxygen Delivery Oxygen Flow Rate Fraction of Inspired Oxygen 06/11/25 19:42 06/11/25 19:50 06/11/25 20:00 Temperature 97.7 F Pulse Rate 78 75 73 Respiratory Rate 20 20 18 Blood Pressure 159/81 H Pulse Oximetry 90 93 Oxygen Delivery Nasal Cannula Oxygen Flow Rate 2 Fraction of Inspired Oxygen 28 06/11/25 20:00 06/11/25 20:00 06/12/25 00:00 Temperature 97.9 F Pulse Rate 74 66 Respiratory Rate 18 Blood Pressure 148/69 H Pulse Oximetry 93 92 Oxygen Delivery Room Air Oxygen Flow Rate Fraction of Inspired Oxygen 06/12/25 00:00 06/12/25 01:16 06/12/25 01:25 Temperature Pulse Rate 62 71 73 Respiratory Rate 20 20 Blood Pressure Pulse Oximetry Oxygen Delivery Oxygen Flow Rate Fraction of Inspired Oxygen 06/12/25 04:00 06/12/25 08:29 06/12/25 08:58 Temperature 97.8 F Pulse Rate 78 78 68 Respiratory Rate 18 20 Blood Pressure 147/75 H Pulse Oximetry 99 Oxygen Delivery Oxygen Flow Rate Fraction of Inspired Oxygen 06/12/25 09:01 06/12/25 09:07 06/12/25 11:35 Temperature 97.6 F Pulse Rate 68 70 70 Respiratory Rate 20 20 18 Blood Pressure 125/62 Pulse Oximetry 92 96 Oxygen Delivery Room Air Oxygen Flow Rate Fraction of Inspired Oxygen Intake/Output Intake/Output: Intake & Output 06/09/25 06/10/25 06/11/25 06/12/25 23:59 23:59 23:59 23:59 Intake Total 2860 1202 1420 480 Output Total 1930 2800 2800 1650 Balance 930 -8890 -7470 -1170 Meds/Results Medications: Active Medications Generic Name Dose Route Start Last Admin Trade Name Freq PRN Reason Stop Dose Admin Acetaminophen 650 mg 06/07/25 07:05 06/09/25 22:36 Acetaminophen 325 Mg Tablet PO 650 mg Q4H PRN Administration Mild Pain (1-3) or Fever Albuterol/Ipratropium 3 ml 06/12/25 13:51 Ipratropium 0.5 Mg/Albuterol Sulfate 2.5 Mg (Base) Ampul.Neb 3 Ml INHALATION Q6HRT PRN shortness of breath Amlodipine Besylate 10 mg 06/10/25 12:25 06/12/25 08:29 Amlodipine Besylate 10 Mg Tablet PO 10 mg DAILY SAAD Administration Apixaban 2.5 mg 06/08/25 09:10 06/12/25 08:29 Apixaban 2.5 Mg Tablet PO 2.5 mg Q12HR SAAD Administration Atorvastatin Calcium 20 mg 06/08/25 18:00 06/11/25 17:43 Atorvastatin 20 Mg Tablet PO 20 mg QPM SAAD Administration Dextrose 12.5 gm 06/07/25 18:17 Dextrose 50% 25 Gm/50 Ml Syringe IV PUSH PRN PRN Hypoglycemia Protocol Docusate Sodium 100 mg 06/09/25 09:00 06/12/25 08:29 Docusate Sodium 100 Mg Capsule PO 100 mg Q12HR SAAD Administration Escitalopram Oxalate 10 mg 06/10/25 12:25 06/12/25 08:29 Escitalopram Oxalate 10 Mg Tablet PO 10 mg DAILY SAAD Administration Ferrous Sulfate 325 mg 06/08/25 09:00 06/12/25 08:29 Ferrous Sulfate 325 Mg Tablet PO 325 mg DAILY SAAD Administration Folic Acid 0.4 mg 06/09/25 09:00 06/12/25 08:30 Folic Acid 0.4 Mg Tablet PO 0.4 mg DAILY SAAD Administration Glucose 15 gm 06/07/25 18:17 Glucose Oral Gel 15 Gm Of Glucse In 37.5 Gm Tube PO PRN PRN Hypoglycemia Protocol Hydralazine HCl 100 mg 06/10/25 13:00 06/12/25 08:29 Hydralazine Hcl 50 Mg Tablet PO 100 mg TID SAAD Administration Dextrose 1,000 mls @ 100 mls/hr 06/07/25 18:17 Dextrose 5% 1,000 Ml IVPB PRN PRN Hypoglycemia Protocol Potassium Chloride 100 mls @ 50 mls/hr 06/12/25 13:44 Kcl 20 Meq/Sw 100 Ml IVPB 06/12/25 15:43 ONCE ONE Insulin Aspart 2 - 5 units 06/08/25 08:00 06/12/25 11:59 Insulin Aspart (*Bkc) 100 Units/Ml SUB-Q 2 units TIDWM [facility] Administration Protocol Insulin Aspart 1 - 2 units 06/07/25 21:00 06/11/25 21:34 Insulin Aspart (*Bkc) 100 Units/Ml SUB-Q 1 units HS [facility] Administration Protocol Insulin Glargine 6 units 06/12/25 18:00 Insulin Glargine (*Bkc) 100 Units/Ml SUB-Q QPM SAAD Levofloxacin 750 mg 06/10/25 21:00 06/11/25 21:33 Levofloxacin 750 Mg Tablet PO 06/13/25 21:01 750 mg QHS SAAD Administration Loratadine 10 mg 06/08/25 09:00 06/12/25 08:30 Loratadine 10 Mg Tablet PO 10 mg DAILY SAAD Administration Metoprolol Tartrate 50 mg 06/08/25 09:00 06/12/25 08:29 Metoprolol Tartrate 50 Mg Tab PO 50 mg DAILY SAAD Administration Mirabegron 25 mg 06/08/25 21:00 06/11/25 21:33 Mirabegron 25 Mg Er Tablet PO 25 mg HS SAAD Administration Mirtazapine 15 mg 06/08/25 21:00 06/11/25 21:33 Mirtazapine 15 Mg Tablet PO 15 mg HS SAAD Administration Miscellaneous Information 1 each 06/08/25 00:01 Vilazodone Nonformulary. Can Patient Bring From Home Or Hold Till Discharge? XX 07/08/25 00:00 CLARIFY [facility] Non-Formulary Medication 40 mg 06/09/25 09:00 Vilazodone PO 07/09/25 08:59 DAILY SAAD Potassium Chloride 40 meq 06/12/25 13:44 Potassium Chloride 20 Meq Er Tablet PO 06/12/25 13:45 ONCE ONE Potassium Chloride 10 meq 06/12/25 21:00 Potassium Chloride 10 Meq Er Tablet PO 06/12/25 21:01 ONCE ONE Potassium Chloride 10 meq 06/13/25 08:00 Potassium Chloride 10 Meq Er Tablet PO DAILY@0800 [facility] Senna 8.6 mg 06/08/25 09:55 06/12/25 08:29 Sennosides 8.6 Mg Tablet PO 8.6 mg DAILY SAAD Administration Tamsulosin HCl 0.4 mg 06/08/25 09:00 06/12/25 08:29 Tamsulosin Hcl 0.4 Mg Capsule PO 0.4 mg QAM SAAD Administration Torsemide 40 mg 06/09/25 09:00 06/12/25 08:30 Torsemide 20 Mg Tablet PO 40 mg DAILY SAAD Administration Trazodone HCl 100 mg 06/08/25 21:00 06/11/25 21:34 Trazodone Hcl 50 Mg Tablet PO 100 mg HS [facility] Administration Vitamin D 125 mcg 06/09/25 09:00 06/12/25 08:29 Cholecalciferol (Vitamin D3) 125 Mcg (5,000 Units) Tablet PO 125 mcg DAILY SAAD Administration Radiology Results: ITS Impressions Chest X-Ray 06/07/25 06:42 IMPRESSION: 1. Left basilar atelectasis and/or airspace disease. Contusion also possible given age indeterminate rib fracture left rib 5.. Chest/Abdomen/Pelvis CT 06/07/25 15:17 IMPRESSION: 1. Black catheter balloon in abnormal position in the prostate. 2. Mild bilateral external iliac lymphadenopathy, likely reactive. 3. Cholelithiasis. Gallbladder distention may be secondary to fasting. Correlate with physical exam to exclude acute cholecystitis. Labs Labs: Laboratory Results - last 24 hr 06/11/25 06/11/25 06/11/25 16:49 17:08 20:30 WBC RBC Hgb Hct MCV MCH MCHC RDW Plt Count MPV Immature Gran % (Auto) Neut % (Auto) Lymph % (Auto) [place] % (Auto) Eos % (Auto) Baso % (Auto) Lymph # (Auto) [place] # (Auto) Eos # (Auto) Baso # (Auto) Abs Immat Gran (auto) Absolute Neuts (auto) Absolute Nucleated RBC Nucleated RBC % Sodium 138 Potassium 3.6 Chloride 97 L Carbon Dioxide 32 H Anion Gap 9 BUN 30 H Creatinine 1.71 H Estim Creat Clear Calc 49 Estimated GFR 39 L Glucose 256 H POC Capillary Glucose 268 H 231 H Calcium 9.0 Magnesium 06/12/25 06/12/25 06/12/25 05:01 08:05 11:53 WBC 8.9 RBC 3.83 L Hgb 10.5 L Hct 34.9 L MCV 91.1 MCH 27.4 MCHC 30.1 L RDW 14.6 H Plt Count 202 MPV 10.0 Immature Gran % (Auto) 1.4 H Neut % (Auto) 64.1 Lymph % (Auto) 23.5 [place] % (Auto) 7.8 Eos % (Auto) 2.6 Baso % (Auto) 0.6 Lymph # (Auto) 2.08 [place] # (Auto) 0.7 H Eos # (Auto) 0.2 Baso # (Auto) 0.1 Abs Immat Gran (auto) 0.12 H Absolute Neuts (auto) 5.7 Absolute Nucleated RBC 0.000 Nucleated RBC % 0.0 Sodium 137 Potassium 2.9 L Chloride 99 Carbon Dioxide 32 H Anion Gap 6 BUN 30 H Creatinine 1.55 H Estim Creat Clear Calc 54 Estimated GFR 44 L Glucose 195 H POC Capillary Glucose 165 H 202 H Calcium 8.3 L Magnesium 2.0
[2025-06-12] MEDS: POTASSIUM CHLORIDE 20 MEQ ER TABLET 40 MEQ PO (14:44)
[2025-06-12] MEDS: KCL 20 MEQ/SW 100 ML 100 ML 50 MEQ IVPB (14:44)
[2025-06-12] MEDS: ATORVASTATIN 20 MG TABLET PO (17:59)
[2025-06-12] MEDS: INSULIN GLARGINE (*BKC) 100 UNITS/ML 6 UNITS SUB-Q (18:02)
[2025-06-12 21:31] LABS: Anion Gap 7 mmol/L (4-12); Blood Urea Nitrogen 31 mg/dL (9-20); Calcium 8.7 mg/dL (8.4-10.2); Carbon Dioxide 32 mmol/L (22-30); Chloride 95 mmol/L (98-107); Estimated CRCL calculation 49 ml/min; Estimated Glomerular Filt Rate 39; Glucose 241 mg/dL (65-110); Potassium 3.6 mmol/L (3.4-5.0); Sodium 134 mmol/L (137-145)
[2025-06-12] MEDS: MIRTAZAPINE 15 MG TABLET PO (22:30)
[2025-06-12] MEDS: MIRABEGRON 25 MG ER TABLET PO (22:30)
[2025-06-12] MEDS: POTASSIUM CHLORIDE 10 MEQ ER TABLET PO (22:33)
[2025-06-13] VITALS (8 sets, daily range): BP systolic 112–167; BP diastolic 60–77; PULSE 68–77; RESP 12–20; TEMP 36.5–37.2; O2SAT 91–95
[2025-06-13] MEDS: POTASSIUM CHLORIDE 10 MEQ ER TABLET PO (08:41)
[2025-06-13] MEDS: APIXABAN 2.5 MG TABLET PO (08:41)
[2025-06-13] MEDS: SENNOSIDES 8.6 MG TABLET PO (08:42)
[2025-06-13] MEDS: FERROUS SULFATE 325 MG TABLET PO (08:42)
[2025-06-13] MEDS: ESCITALOPRAM OXALATE 10 MG TABLET PO (08:42)
[2025-06-13] MEDS: METOPROLOL TARTRATE 50 MG TAB PO (08:42)
[2025-06-13] MEDS: FOLIC ACID 0.4 MG TABLET PO (08:42)
[2025-06-13] MEDS: DOCUSATE SODIUM 100 MG CAPSULE PO (08:42)
[2025-06-13] MEDS: LORATADINE 10 MG TABLET PO (08:42)
[2025-06-13] MEDS: TAMSULOSIN HCL 0.4 MG CAPSULE PO (08:42)
[2025-06-13] MEDS: CHOLECALCIFEROL (VITAMIN D3) 125 MCG (5,000 UNITS) TABLET PO (08:42)
[2025-06-13] MEDS: TORSEMIDE 20 MG TABLET 40 MG PO (08:42)
[2025-06-13 09:00] LABS: Hematocrit 36.0 % (42.0-52.0); Hemoglobin 11.1 g/dL (14.0-18.0); Mean Corpuscular HGB Conc 30.8 g/dl (32-36); Mean Corpuscular Hemoglobin 28.0 pg (26-34); Mean Corpuscular Volume 90.9 fl (80-100); Platelet Count Result 244 k/mm3 (150-375); Red Blood Count 3.96 M/mm3 (4.6-6.20); White Blood Count 10.5 K/mm3 (4.5-10.0)
[2025-06-13 09:39] LABS: Alanine Aminotransferase 13 U/L (6-50); Albumin Level 3.3 g/dL (3.5-5.1); Alkaline Phosphatase 60 U/L (38-126); Anion Gap 4 mmol/L (4-12); Aspartate Amino Transferase 18 U/L (17-59); Bilirubin,Total 0.4 mg/dL (0.2-1.3); Blood Urea Nitrogen 26 mg/dL (9-20); Calcium 8.4 mg/dL (8.4-10.2); Carbon Dioxide 33 mmol/L (22-30); Chloride 99 mmol/L (98-107); Estimated CRCL calculation 57 ml/min; Estimated Glomerular Filt Rate 47; Glucose 161 mg/dL (65-110); Potassium 3.1 mmol/L (3.4-5.0); Sodium 136 mmol/L (137-145); Total Protein 6.5 g/dL (6.3-8.2)
--- NOTE | 2025-06-13 12:45 | PC.NURSE ---
On 06/13/25, the student, Doris Suazo, provided care and completed [facility] documentation on this patient. I have reviewed the student's documentation and agree with the findings.
--- NOTE | 2025-06-13 13:14 | P.DS_ITS ---
DS: Admitting Diagnosis Discharge Date 06/13/2025 Admitting Diagnosis Sepsis Acute hypoxemic respiratory failure Pneumonia COPD exacerbation Hypokalemia DM CKD HTN DS: Discharge Diagnosis Discharge Diagnosis (1) Sepsis: Code(s): A41.9 - Sepsis, unspecified organism Status: Acute (2) Acute hypoxemic respiratory failure: Code(s): J96.01 - Acute respiratory failure with hypoxia Status: Acute (3) Pneumonia: Code(s): J18.9 - Pneumonia, unspecified organism Status: Acute (4) COPD exacerbation: Code(s): J44.1 - Chronic obstructive pulmonary disease with (acute) exacerbation Status: Acute (5) Hypokalemia: Code(s): E87.6 - Hypokalemia Status: Acute (6) Diabetes: Code(s): E11.9 - Type 2 diabetes mellitus without complications Status: Acute (7) CKD (chronic kidney disease): Code(s): N18.9 - Chronic kidney disease, unspecified Status: Acute (8) Hypertension: Code(s): I10 - Essential (primary) hypertension Status: Acute DS: Summary Hospital Course Reason for hospitalization: Sepsis Acute hypoxemic respiratory failure Pneumonia COPD exacerbation Hypokalemia DM CKD HTN Hospital Course: 75-year-old male with PMH Alzheimer's dementia (baseline A&O x 2-3, confusion fluctuates), history of CVA x3, CHF, hypertension, COPD, CKD, presents to [facility] on 06/07/2025 as he was found to be hypoxic at his local nursing facility. Patient septic on admission with a fever and leukocytosis. Blood cultures obtained and showing NGTD. Started on antibiotics and received IV fluids per sepsis protocol. Chest XR showed left basilar atelectasis and/or airspace disease with a possible contusion, age indeterminate rib fracture left rib 5. Patient treated for possible pneumonia given sepsis with IV antibiotics. He was also started on steroids. Patient was able to be weaned back to room air during admission with stable saturations. Patient completed the antibiotic course prior to discharge. At time of discharge patient denies shortness of breath and cough, stating he felt back to baseline. During admission patient glucose level with the above goal. Lantus was increased. Leukocyte have improved on morning CMP. Continue current diabetic regimen and monitor closely. Patient noted to be hypokalemic I could related to go current torsemide use. Patient started potassium supplement. Patient krupa obtain a repeat BMP to reassess potassium level. CT abdomen/pelvis showed cholelithiasis with distension. Patient remains asymptomatic, tolerating a diet with normal LFTs. No intervention required. Patient has no complaints at time of discharge denying chest pain, shortness a breath, palpitations, nausea/vomiting and abdominal pain. Patient states he feels back to his baseline and is ready for discharge. Patient discharged to SNF in a stable condition. He is to follow-up with his primary care provider in 1 week. Status at Discharge Functional status at discharge: wheelchair bound Time Spent with Patient Time attestation: Total time spent providing and/or coordinating discharge services: Time spent: Greater than 30 minutes Exam Narrative: AF HR 70 RR 12 Spo2 95 BP 112/60 General: male in no acute respiratory distress who is nontoxic appearing, s itting up in bed. HEENT: Normocephalic. Atraumatic. Extraocular movement intact. Sclera clear and anicteric. No facial asymmetry. Chest: Lungs are clear to auscultation bilaterally. CV: Heart was regular rate and rhythm. Abd: Abdomen was soft. Nontender. Nondistended. Positive bowel sounds. Ext: No clubbing, cyanosis, or edema. DP pulses bilaterally. Neuro: Patient is alert and oriented x3. Speech is clear. DS: Data Data Completed and Pending Completed studies during hospitalization: chest xr chest/abdomen/pelvis ct Labs on day of discharge: Labs from last 24 hours 06/13/25 06/13/25 06/13/25 11:44 08:27 08:23 WBC 10.5 H RBC 3.96 L Hgb 11.1 L Hct 36.0 L MCV 90.9 MCH 28.0 MCHC 30.8 L RDW 14.6 H Plt Count 244 MPV 9.9 Sodium 136 L Potassium 3.1 L Chloride 99 Carbon Dioxide 33 H Anion Gap 4 BUN 26 H Creatinine 1.46 H Estim Creat Clear Calc 57 Estimated GFR 47 L Glucose 161 H POC Capillary Glucose 170 H 159 H Calcium 8.4 Total Bilirubin 0.4 AST 18 ALT 13 Alkaline Phosphatase 60 Total Protein 6.5 Albumin 3.3 L 06/12/25 06/12/25 06/12/25 21:14 21:04 17:17 WBC RBC Hgb Hct MCV MCH MCHC RDW Plt Count MPV Sodium 134 L Potassium 3.6 Chloride 95 L Carbon Dioxide 32 H Anion Gap 7 BUN 31 H Creatinine 1.71 H Estim Creat Clear Calc 49 Estimated GFR 39 L Glucose 241 H POC Capillary Glucose 244 H 278 H Calcium 8.7 Total Bilirubin AST ALT Alkaline Phosphatase Total Protein Albumin Preliminary micro results at discharge 06/07/25 06:27 Blood Culture - Preliminary Blood 06/07/25 06:27 Blood Culture - Preliminary Blood Discharge Plan Discharge Attending physician on discharge: Katarina Sanz Consulting providers: Erich Arcos; Keira Johnston Discharging Clinician: Keira Johnston Anticipated Discharge Date/Time: 06/13/25 12:43 Patient Disposition: SNF Activity: as tolerated Diet: as tolerated and heart healthy Discharge Instructions: Discharge disposition: Patient admitted to the hospital acute respiratory failure related to pneumonia vs viral infection Completed antibiotics during admission Weaned back to room air during admission Continue inhalers as previously prescribed Eat well balanced meals and stay hydrated Maintain a cardiac diet, 2 g sodium, do not over hydrate Remain active Monitor urine output Daily weights, if you gain more than 3 lb within 1 day or 5 lb in 1 week notify your primary care provider Patient started on potassium replaced, attached is information on this medication Continue torsemide and metoprolol Obtain a blood draw in 5 days to reassess potassium level Strict bleeding precautions since you remain on eliquis including shaving with an electric razor, holding pressure for greater than 20 minutes for injury, protection of had with any falls, etc. Monitor blood pressures Take caution while standing, rising, or moving Change positions slowly taking a break between each position change If you standing feel dizzy sit back down and take a break Monitor glucose levels with each meal and at night Increased lantus dose to 6 units Encouraged to continue with yearly vaccinations Return to the emergency department if he developed sudden shortness of breath, chest pain, nausea, vomiting, upset stomach or intractable diarrhea Return to the emergency department if you develop fever greater than 100.5 Follow-up with the primary care physician within 1-2 weeks Thank you for choosing [facility] for your healthcare needs Patient Instructions: Potassium Chloride (By mouth), Apixaban (By mouth), Pne vee (DC) Patient Language: Kittitian Stand Alone Forms: General Discharge Information Follow-up/Referrals: PHYSICIAN,TAMPER OPERATOR [Primary Care Provider, Internal Medicine] Erich Arcos MD [Physician, Family Practice] - 1 Week Discharge Medications: New potassium chloride 10 mEq capsule, extended release 10 meq PO DAILY Qty: 20 0RF Continued acetaminophen 325 mg capsule 325 mg PO Q4H PRN (Reason: fever or pain) acetaminophen 500 mg tablet 500 mg PO BID albuterol sulfate 2.5 mg /3 mL (0.083 %) solution for nebulization 2.5 mg inhalation Q8H PRN (Reason: shortness of breath or wheezing) amlodipine 10 mg tablet 10 mg PO DAILY atorvastatin 20 mg tablet 20 mg PO QPM Eliquis 2.5 mg tablet 2.5 mg PO Q12H escitalopram oxalate 10 mg tablet 10 mg PO DAILY zolpidem 10 mg tablet 10 mg PO HS vilazodone 40 mg tablet 40 mg PO DAILY cholecalciferol (vitamin D3) 125 mcg (5,000 unit) tablet 125 mcg PO DAILY trazodone 100 mg tablet 100 mg PO HS insulin lispro [Humalog KwikPen Insulin] 100 unit/mL insulin pen 1 sliding scale dose SUBCUT BID Tradjenta 5 mg tablet 5 mg PO DAILY torsemide 20 mg tablet 40 mg PO DAILY sennosides [senna] 8.6 mg tablet 8.6 mg PO DAILY mirtazapine 15 mg tablet 15 mg PO HS metoprolol tartrate 50 mg tablet 50 mg PO DAILY magnesium hydroxide [Milk Of Magnesia Concentrated] 2,400 mg/10 mL suspension 30 ml PO DAILY PRN (Reason: constipation) loratadine [Allergy Relief (loratadine)] 10 mg tablet 10 mg PO DAILY loperamide 2 mg capsule 2 mg PO Q12H PRN (Reason: loose stool) hydralazine 100 mg tablet 100 mg PO TID folic acid 400 mcg tablet 400 mcg PO DAILY fluticasone propion-salmeterol 250-50 mcg/dose blister with device 1 inh INHALATION Q12H ferrous sulfate [FeroSul] 325 mg (65 mg iron) tablet 325 mg PO DAILY mirabegron [Myrbetriq] 25 mg tablet extended release 24 hr 25 mg PO HS Changed insulin glargine [Lantus Solostar U-100 Insulin] 100 unit/mL (3 mL) insulin pen 6 unit SUBCUT QPM Qty: 3 0RF Discontinued ferrous sulfate 325 mg (65 mg iron) tablet 325 mg PO .COMPLEX Rx Instructions: 325 mg orally Friday, Friday, Friday; Other Ambulatory Orders: Basic Metabolic Panel (Routine) Timeframe: 5 Days Location: Determined by Patient Ordered By: Keira Johnston Date of admission: 06/07/25 07:05 Primary Care Provider: PHYSICIAN,TAMPER OPERATOR Admitting Provider: Lora Garcia Attending physician on admission: Lora Garcia Condition: Stable Hospitalist MIPS Heart Failure (Exclusion) Patient has history of Heart Transplant or Left Ventricular Assistive Device?: No IF YES, STOP HERE Heart Failure (Qualifier) Patient has current or prior documentation of LVEF less than or equal to 40%, or mod/servere depressed LVSF?: No IF NO, STOP HERE
[2025-06-13] MEDS: POTASSIUM CHLORIDE 20 MEQ ER TABLET 40 MEQ PO (13:18)
--- NOTE | 2025-06-13 13:34 | PC.NURSE ---
On 06/13/25, the student, José Osorio, provided care and [facility] I have reviewed the student's documentation and agree with the findings.
== END 2025-06-13 14:25 | DRG 871 ==
LOC: ANHED 07:14 → ANHIMU 08:50 → ANH2MED 06-09 11:45
PROVIDERS: Nurse Practitioner; Admitting Provider General Practice; Emergency Provider Student in an Organized Health Care Education/Training Program; Visit Provider Student in an Organized Health Care Education/Training Program
DX: A41.9 Sepsis, unspecified organism (principal); J18.9 Pneumonia, unspecified organism; J96.01 Acute respiratory failure with hypoxia; Z68.41 Body mass index [BMI] 40.0-44.9, adult; J44.1 Chronic obstructive pulmonary disease with (acute) exacerbation; E66.01 Morbid (severe) obesity due to excess calories; E87.6 Hypokalemia; E11.22 Type 2 diabetes mellitus with diabetic chronic kidney disease; F02.80 Dementia in other diseases classified elsewhere, unspecified severity, without behavioral disturbance, psychotic disturbance, mood disturbance, and anxiety; G30.9 Alzheimer's disease, unspecified; I12.9 Hypertensive chronic kidney disease with stage 1 through stage 4 chronic kidney disease, or unspecified chronic kidney disease; N18.9 Chronic kidney disease, unspecified; Z87.891 Personal history of nicotine dependence; Z20.822 Contact with and (suspected) exposure to COVID-19; Z79.01 Long term (current) use of anticoagulants; Z79.4 Long term (current) use of insulin; Z66 Do not resuscitate; Z86.73 Personal history of transient ischemic attack (TIA), and cerebral infarction without residual deficits; Z99.3 Dependence on wheelchair
CPT/HCPCS: 36415; 71045; 71250; 74176; 80048; 80053; 80202; 81003; 82948; 83605; 83735; 84132; 84145; 85025; 85027; 85610; 85730; 86140; 86738; 87040; 87633; 87637; 87641; 93005; 94640; 96365; 97110; 97166; 97530; 97535; 99291; A9270; J0456; J0692; J1720; J1815; J3373; J3480; J7050; J7120

== ENCOUNTER 2025-06-23 11:02 | Inpatient (IN) | payer MEDICARE, MEDICAID, SELFPAY ==
[2025-06-23] VITALS (35 sets, daily range): BP systolic 113–137; BP diastolic 54–69; PULSE 76–96; RESP 11–27; TEMP 36.7–38; O2SAT 88–95; BMI 41.5
--- NOTE | ~2025-06-23 | XR_ITS ---
Examination: XR chest 1V portable Clinical History: Pulmonary edema Comparison: X-rays 02/21/2025 Technique: Portable AP Findings: Cardiomegaly. Lungs clear. No acute bony abnormality. IMPRESSION: 1. No acute cardiopulmonary findings given portable technique. Reviewed, dictated and finalized at location R.
--- NOTE | ~2025-06-23 | XR_ITS ---
EXAMINATION: XR chest 2V, 06/23/2025 12:03 CDT HISTORY: cp COMPARISON: No comparisons available. Technique: 2 views obtained. Findings: The lungs are clear, no effusion. No pneumothorax. Heart is normal size. Mediastinal and hilar contours are within normal limits. Bony thorax no acute abnormality. Impression: No acute cardiopulmonary abnormality. Reviewed, dictated and finalized at location P. Impression: No acute cardiopulmonary abnormality.
--- NOTE | ~2025-06-23 | NM_ITS ---
EXAMINATION: NM jaxon stress w perfusion DATE: 06/24/2025 12:08 INDICATION: Chest pain. TECHNIQUE: Rest images were obtained following intravenous administration of 10 mCi Tc99m tetrofosmin (Myoview). The patient was infused intravenously with Lexiscan (regadenoson). Then, 31.2 mCi Tc99m tetrofosmin (Myoview) was administered intravenously, and stress images were obtained. Data was recons tructed into short axis and horizontal and vertical long axis SPECT images. Gated SPECT images were also obtained. COMPARISON: Chest CT 06/23/2025 FINDINGS: There is a small, mild, fixed perfusion defect involving mid inferior wall of left ventricle, consistent with infarct. No reversible component to suggest ischemia. There is no segmental wall motion abnormality. Left ventricular ejection fraction measures >70%. IMPRESSION: 1. Small area of mild infarct involving mid inferior segment of left ventricle. 2. Normal left ventricular ejection fraction measuring >70%. Reviewed, dictated and finalized at location E.
--- NOTE | ~2025-06-23 | CT_ITS ---
EXAMINATION: CT chest abdomen pelvis w con DATE: 06/23/2025 13:12 INDICATION: Chest pain. Leukocytosis. TECHNIQUE: Computed tomography (CT) of the chest, abdomen, and pelvis was performed with 100 mL Omnipaque-350 intravenous contrast. Automated exposure control and iterative reconstruction technique were employed. The dose-length product was 2109.05 mGy-cm. COMPARISON: 06/07/2025 FINDINGS: CHEST CT: Mild dependent atelectasis and corresponding mild volume loss in the bilateral lower lobes. No pulmonary edema, pleural effusion or airspace opacities suspicious for pneumonia. Heart size is normal. Atherosclerotic coronary artery calcification. No pericardial effusion. Thoracic aorta is normal in caliber with no dissection. No pathologically enlarged thoracic lymphadenopathy. Moderate thoracic spondylosis with bridging osteophytes at multiple levels consistent with diffuse idiopathic skeletal hyperostosis (DISH). ABDOMEN/PELVIS CT: Several small gallstones at the dependent aspect of the otherwise normal- appearing gallbladder with no dilation, wall thickening or pericolic inflammatory stranding to suggest acute cholecystitis. Liver, spleen, pancreas and bilateral adrenal glands are normal. Bilateral low-attenuation renal cysts, the largest at the right kidney measuring up to 2.0 cm. Bowels including the appendix are normal. Mild wall thickening along the inferior and posterior smooth bladder wall which along with a small bladder diverticulum could be due to chronic outlet obstruction from the enlarged prostate which measures 7.7 x 4.9 cm. There is mild stranding in the fat along the base of the bladder which could be seen with cystitis. No free intraperitoneal gas or fluid. No pathologically enlarged abdominal or pelvic lymphadenopathy. Mild lumbar spondylosis. Bipolar type left hip hemiarthroplasty. Large hourglass shaped right retroperitoneal lipoma which measures 26.7 cm craniocaudally the larger more cephalad component along the anterior margin of the infrarenal right psoas muscle measuring up to 12.1 x 8.9 cm, tapering at the level of the superior aspect of the acetabulum with more distal component measuring 6.7 x 6.3 cm in maximal transaxial dimensions anteromedial to the intertrochanteric proximal right femur. There is a small heterotopic ossification within the cephalad portion of the lipoma consistent with sequela prior fat necrosis. There is a second small region within the lipoma with central fat attenuation and thinning peripheral rim of soft tissue density also likely sequela of fat necrosis. No more concerning solid nodular soft tissue component. IMPRESSION: 1. No acute cardiopulmonary disease. 2. Inferior and posterior nonuniform wall thickening of the bladder with a small bladder diverticulum likely related to chronic outlet obstruction from the enlarged prostate. There is some stranding along the base of bladder and would correlate with urinalysis to exclude post urinary tract infection/cystitis. No other acute intra-abdominal/pelvic process. 3. Large retroperitoneal hematoma beginning in the right lower quadrant along the anterior margin of the psoas muscle and extending caudally to the distal femoral insertion of the iliopsoas tendon at the anterior right thigh. Reviewed, dictated and finalized at location A. IMPRESSION: 1. No acute cardiopulmonary disease. 2. Inferior and posterior nonuniform wall thickening of the bladder with a smal l bladder diverticulum likely related to chronic outlet obstruction from the en larged prostate. There is some stranding along the base of bladder and would co rrelate with urinalysis to exclude post urinary tract infection/cystitis. No ot her acute intra-abdominal/pelvic process. 3. Large retroperitoneal hematoma beginning in the right lower quadrant along t he anterior margin of the psoas muscle and extending caudally to the distal fem oral insertion of the iliopsoas tendon at the anterior right thigh.
--- NOTE | 2025-06-23 11:15 | ECG_ITS ---
Test Date: 2025-06-23 11:14:58 Measurements Intervals [place] Rate: 80 P: 85 MA: 244 QRS: 49 QRSD: 108 T: 45 QT: 393 QTc: 453 Interpretive Statements SINUS RHYTHM WITH FIRST DEGREE AV BLOCK BORDERLINE ST-T WAVE ABNORMALITY- INFERIOR LEADS BASELINE WANDER- V2 BORDERLINE ECG Compared to ECG 06/07/2025 06:05:48 HEART RATE HAS DECREASED Electronically Signed On 06-23-2025 12:12:26 CDT by Shravan Laureano D.O.
--- NOTE | 2025-06-23 11:22 | ED.CHESTPAIN ---
HPI - Chest Pain General Chief Complaint: Chest Pain Stated Complaint: CP Source: patient and EMS Mode of arrival: EMS Limitations: no limitations History of Present Illness HPI narrative: This is a 75-year-old male, with history of dementia, heart failure, diabetes, recently discharged from this facility with pneumonia 10 days ago, brought in by EMS from his retirement with chest pain. The patient states the pain began this morning. He describes it as dull, rated 5/10 at max, at the right chest radiating to the right shoulder. He denies are no aggravating or alleviating factors. He denies shortness of breath. He has no other complaints at this time. EMS reports on arrival staff from the patient hypoxic to 88% with improvement to low 90s after a DuoNeb. Related Data Home Medications ?Medication ?Instructions ?Recorded ?Confirmed ?Last Taken ?Type acetaminophen 325 mg capsule 325 mg PO Q4H PRN fever or pain 06/07/25 06/23/25 Unknown History acetaminophen 500 mg tablet 500 mg PO BID 06/07/25 06/23/25 06/06/25 16:00 History 500 mg albuterol sulfate 2.5 mg/3 mL 2.5 mg inhalation Q8H PRN 06/07/25 06/23/25 Unknown History (0.083 %) solution for nebulization shortness of breath or wheezing amlodipine 10 mg tablet 10 mg PO DAILY 06/07/25 06/23/25 06/06/25 08:00 History 10 mg apixaban 2.5 mg tablet (Eliquis) 2.5 mg PO Q12H 06/07/25 06/23/25 06/06/25 18:00 History 2.5 mg atorvastatin 20 mg tablet 20 mg PO QPM 06/07/25 06/23/25 06/06/25 20:00 History 20 mg cholecalciferol (vitamin D3) 125 125 mcg PO DAILY 06/07/25 06/23/25 06/06/25 08:00 History mcg (5,000 unit) tablet 125 mcg escitalopram oxalate 10 mg tablet 5 mg PO DAILY 06/07/25 06/23/25 06/06/25 08:00 History 10 mg fluticasone 250 mcg-salmeterol 50 1 inh inhalation Q12H 06/07/25 06/23/25 06/06/25 08:00 History mcg/dose blistr powdr for 1 inh inhalation folic acid 400 mcg tablet 400 mcg PO DAILY 06/07/25 06/23/25 06/06/25 08:00 History 400 mcg hydralazine 100 mg tablet 100 mg PO TID 06/07/25 06/23/25 06/06/25 20:00 History 100 mg insulin lispro 100 unit/mL 1 sliding scale dose subcut BID 06/07/25 06/23/25 06/06/25 18:00 History subcutaneous pen (Humalog KwikPen 1 (U-100) Insulin) linagliptin 5 mg tablet (Tradjenta) 5 mg PO DAILY 06/07/25 06/23/25 06/06/25 08:00 History 5 mg loperamide 2 mg capsule 2 mg PO Q12H PRN loose stool 06/07/25 06/23/25 Unknown History loratadine 10 mg tablet (Allergy 10 mg PO DAILY 06/07/25 06/23/25 06/06/25 08:00 History Relief (loratadine)) 10 mg magnesium hydroxide 2,400 mg/10 mL 30 ml PO DAILY PRN constipation 06/07/25 06/23/25 Unknown History oral suspension (Milk Of Magnesia Concentrated) metoprolol tartrate 50 mg tablet 50 mg PO DAILY 06/07/25 06/23/25 06/06/25 08:00 History 50 mg mirabegron 25 mg tablet,extended 25 mg PO HS 06/07/25 06/23/25 06/06/25 08:00 History release 24 hr (Myrbetriq) 25 mg mirtazapine 15 mg tablet 15 mg PO HS 06/07/25 06/23/25 06/06/25 20:00 History 15 mg sennosides 8.6 mg tablet (senna) 8.6 mg PO DAILY 06/07/25 06/23/25 06/06/25 08:00 History 8.6 mg torsemide 20 mg tablet 40 mg PO DAILY 06/07/25 06/23/25 06/06/25 08:00 History 40 mg trazodone 100 mg tablet 100 mg PO HS 06/07/25 06/23/25 06/06/25 20:00 History 100 mg vilazodone 40 mg tablet 40 mg PO DAILY 06/07/25 06/23/25 06/06/25 08:00 History 40 mg zolpidem 10 mg tablet 7.5 mg PO HS 06/07/25 06/23/25 06/06/25 20:00 History 10 mg furosemide 40 mg tablet 40 mg PO Q12H 06/23/25 06/23/25 Unknown History insulin glargine 100 unit/mL (3 6 unit subcut HS 06/23/25 06/23/25 Unknown History mL) subcutaneous pen (Lantus Solostar U-100 Insulin) Allergies Allergy/AdvReac Type Severity Reaction Status Date / Time No Known Allergies Allergy Verified 06/23/25 17:47 Review of Systems Review of Systems: All systems reviewed & are unremarkable except as noted in HPI and below PMFSH Past Medical History Medical History (Updated 06/23/25 @ 20:00 by Ankit Prado MD) BPH (benign prostatic hyperplasia) CKD (chronic kidney disease) Diabetes Hypertension Depression COPD (chronic obstructive pulmonary disease) Social History Social History Smoking status: Former smoker Tobacco type: cigarettes Second hand tobacco smoke exposure: Yes Alcohol intake: former Substance use: former Lack of Transportation: No Lack of Food: Never True Current Housing: I Have Housing Concerned About Future Housing: No Difficulty Paying Gas/Electric Bills: No Difficulty Paying for Meds: No Currently Unemployed: No Education: Associate Degree Difficulty w/ Childcare or Family Care: No Spiritual care concerns: No Exam Narrative: GENERAL: Well-developed, well-nourished, and in no acute distress. HEAD: Normocephalic, atraumatic. EYES: PERRLA and EOMI. NECK: Supple. No JVD CHEST: Clear to auscultation. No respiratory distress. No wheezes rales or rhonchi HEART: Regular rate and rhythm. No murmur heard. Normal peripheral pulses. ABDOMEN: Soft, suprapubic tenderness to palpation without rebound or guarding, nondistended, normal active bowel sounds. EXTREMITIES: Normal range of motion. Bilateral lower extremity edema 1+ to the for legs SKIN: Warm, dry, no rash. NEURO: Alert and oriented x3. No focal deficit. Moving all 4 limbs spontaneously PSYCH: Normal mood and affect. Course Course Emergency Course: 14:47 - CBC demonstrates elevated white blood cell count of 19 with hemoglobin of 10 and platelets of 217. Chemistries demonstrate elevated creatinine of 2.5 with a baseline of 1.4, BUN elevated to 35 calcium decreased to 8.2. There is no noted anion gap. BNP slightly elevated at 673 with a negative troponin. Lipase within normal limits. CT abdomen pelvis demonstrates changes consistent with urinary tract infection. There is a large lipoma noted in the right retroperitoneal space. I discussed this with radiologist, Dr. [facility] who clarified his read (originally in impression a hematoma was noted and a lipoma was noted in the findings). The patient was treated with IV antibiotics. I discussed the patient with hospitalist, MAIK Hammer who accepts admission. Vital Signs Vital signs: Vital Signs Temperature 98.1 F 06/23/25 11:07 Pulse Rate 96 06/23/25 11:07 Respiratory Rate 26 H 06/23/25 11:07 Blood Pressure 125/60 06/23/25 11:07 Pulse Oximetry 94 06/23/25 11:07 Oxygen Delivery Nasal Cannula 06/23/25 11:07 Oxygen Flow Rate 4 06/23/25 11:07 Temperature 98.2 F 06/23/25 16:52 Pulse Rate 84 06/23/25 18:00 Respiratory Rate 22 H 06/23/25 16:52 Blood Pressure 115/60 06/23/25 16:52 Pulse Oximetry 94 06/23/25 16:52 Oxygen Delivery Nasal Cannula 06/23/25 11:07 Oxygen Flow Rate 4 06/23/25 11:07 MDM - Chest Pain MDM Narrative Medical decision making narrative: Plan: Imaging, labs, EKG troponin, control, reassess Differential Diagnosis Differential diagnosis: Likely pneumothorax, costochondritis and other (ACS, metabolic abnormality, PE, pleurisy, other) Lab Data 06/23/25 11:32 06/23/25 11:32 Labs: Lab Results 06/23/25 Range/Units 11:32 WBC 19.3 H (4.5-10.0) K/mm3 RBC 3.83 L (4.6-6.20) M/mm3 Hgb 10.6 L (14.0-18.0) g/dL Hct 35.8 L (42.0-52.0) % MCV 93.5 (80-100) fl MCH 27.7 (26-34) pg MCHC 29.6 L (32-36) g/dl RDW 15.7 H (11.5-14.5) % Plt Count 217 (150-375) k/mm3 MPV 10.1 (7.4-10.4) fl Immature Gran % (Auto) 2.8 H (0-0.5) % Neut % (Auto) 83.8 H (45.5-73.1) % Lymph % (Auto) 6.2 L (18.3-44.2) % Garrard % (Auto) 6.6 (2.6-8.5) % Eos % (Auto) 0.2 (0-4.4) % Baso % (Auto) 0.4 (0.2-1.2) % Lymph # (Auto) 1.20 (0.9-3.2) K/mm3 Garrard # (Auto) 1.3 H (0.1-0.6) K/mm3 Eos # (Auto) 0.0 (0-0.3) K/mm3 Baso # (Auto) 0.1 (0.0-0.1) K/mm3 Abs Immat Gran (auto) 0.54 H (0.00-0.031) K/mm3 Absolute Neuts (auto) 16.2 H (1.3-6.7) K/mm3 Absolute Nucleated RBC 0.000 (0.0-0.012) K/mm3 Band Neutrophils % Not Reportable Nucleated RBC % 0.0 (0.0-0.2) % Platelet Estimate Adequate (Adequate) Hypochromasia Occasional Schistocytes None seen PT 18.1 H (11.1-14.7) Seconds INR 1.5 APTT 39.4 H (22.3-36.8) Seconds D-Dimer 0.76 H (<0.48) ug/mL Sodium 141 (137-145) mmol/L Potassium 3.7 (3.4-5.0) mmol/L Chloride 103 (98-107) mmol/L Carbon Dioxide 30 (22-30) mmol/L Anion Gap 8 (4-12) mmol/L BUN 35 H (9-20) mg/dL Creatinine 2.50 H (0.7-1.3) mg/dL Estim Creat Clear Calc 35 ml/min Estimated GFR 25 L (59 - ) Glucose 196 H (65-110) mg/dL Calcium 8.2 L (8.4-10.2) mg/dL Total Bilirubin 0.6 (0.2-1.3) mg/dL AST 16 L (17-59) U/L ALT 13 (6-50) U/L Alkaline Phosphatase 68 (38-126) U/L Troponin I 0.013 (0.000-0.034) ng/mL NT-Pro-B Natriuret Pep 673 H (19.9-100) pg/mL Total Protein 7.3 (6.3-8.2) g/dL Albumin 3.6 (3.5-5.1) g/dL Lipase 37 (23-300) U/L ECG Data EKG #1: Attestation: I personally reviewed and interpreted this ECG as follows: ECG completion date: 06/23/25 ECG completion time: 11:14 Interpretation: Sinus rhythm, rate 80, normal axis, no ST segment elevations or T-wave inversions concerning for ischemia, T-wave flattening in lead 3. First-degree AV block. Otherwise normal intervals with QTC of 428. Compared to EKG done and June 07, 2025, sinus tachycardia has resolved. Discharge Plan Discharge Clinical Impression: COREY (acute kidney injury), Acute UTI, Acute exacerbation of chronic obstructive pulmonary disease, Hypocalcemia Patient Disposition: Still a Patient Condition: Serious Time of Disposition: 14:47
[2025-06-23] MEDS: NITROGLYCERIN SL 0.4 MG TABLET SUBLINGUAL (11:29)
[2025-06-23 11:42] LABS: Hematocrit 35.8 % (42.0-52.0); Hemoglobin 10.6 g/dL (14.0-18.0); Immature Granulocyte Percent A 2.8 % (0-0.5); Lymphocytes Absolute Auto 1.20 K/mm3 (0.9-3.2); Mean Corpuscular HGB Conc 29.6 g/dl (32-36); Mean Corpuscular Hemoglobin 27.7 pg (26-34); Mean Corpuscular Volume 93.5 fl (80-100); Nucleated Red Blood Cells Absolute Auto 0.000 K/mm3 (0.0-0.012); Nucleated Red Blood Cells Perc 0.0 % (0.0-0.2); Platelet Count Result 217 k/mm3 (150-375); Red Blood Count 3.83 M/mm3 (4.6-6.20); White Blood Count 19.3 K/mm3 (4.5-10.0)
[2025-06-23 11:53] LABS: INR 1.5; Prothrombin Time 18.1 Seconds (11.1-14.7)
[2025-06-23 11:54] LABS: Partial Thromboplastin Time 39.4 Seconds (22.3-36.8)
[2025-06-23 11:55] LABS: Alanine Aminotransferase 13 U/L (6-50); Albumin Level 3.6 g/dL (3.5-5.1); Alkaline Phosphatase 68 U/L (38-126); Anion Gap 8 mmol/L (4-12); Aspartate Amino Transferase 16 U/L (17-59); Bilirubin,Total 0.6 mg/dL (0.2-1.3); Blood Urea Nitrogen 35 mg/dL (9-20); Calcium 8.2 mg/dL (8.4-10.2); Carbon Dioxide 30 mmol/L (22-30); Chloride 103 mmol/L (98-107); Estimated CRCL calculation 35 ml/min; Estimated Glomerular Filt Rate 25; Glucose 196 mg/dL (65-110); Lipase 37 U/L (23-300); Potassium 3.7 mmol/L (3.4-5.0); Sodium 141 mmol/L (137-145); Total Protein 7.3 g/dL (6.3-8.2)
[2025-06-23 11:59] LABS: Hypochromasia Occasional; Schistocytes None Seen
[2025-06-23 12:06] LABS: NT Pro B Type Natriuretic Pept 673 pg/mL (19.9-100); Troponin I 0.013 ng/mL (0.000-0.034)
[2025-06-23] MEDS: IPRATROPIUM 0.5 MG/ALBUTEROL SULFATE 2.5 MG (BASE) AMPUL.NEB 3 ML INHALATION (12:26)
[2025-06-23] MEDS: CEFEPIME 2 GM in SODIUM CHLORIDE 0.9% IV 50 ML 100 ML IVPB (12:44)
--- OUTSIDE RECORDS SUMMARY | 2025-06-23 13:42 | XMS_ITS | Patient Health Record ---
Author Organization [facility] Address [address] [place], [place] [id number] Care Team Providers Care Collection Team Lead Name Role Phone ANDREYLEROY CALEB Unavailable [phone] Boby Hair Unavailable Unavailable Reason For Referral No Information Plan Of Treatment No Information Insurance Providers Payer Name Payer Address Payer Phone Subscriber Number Group Number Insured Name Patient Relationship to Insured Coverage Start Date Coverage End Date [facility] [address] [address] [place] [address] [id number] SANGEETHA ONEILL Self - patient is the insured
[2025-06-23] MEDS: AZITHROMYCIN IV 500 MG in SODIUM CHLORIDE 0.9% IV 250 ML IVPB (14:06)
--- NOTE | 2025-06-23 14:51 | PC.NURSE ---
Attempted to straight cath pt x2. Unable to get urine. EDP made aware. No new orders at this time.
--- NOTE | 2025-06-23 15:41 | P.HP_ITS ---
H&P: HPI History of Present Illness Date/Time: 06/23/25 15:41 Chief Complaint: Chest pain Narrative: 75-year-old male with history of dementia, heart failure, diabetes who recently had pneumonia with brought in by EMS from his custodial chest pain. Patient states that the chest pain started this morning and is dull in nature. On bedside exam patient denies chest pain. However he is diaphoretic, afebrile, tachypneic on 3 L of oxygen. Patient has general complains amylase however he does not give details. Denies nausea and vomiting. Lab work shows leukocytosis at 19.3, hemoglobin 10.6, BUN of 35, creatinine of 2.50 with baseline being around 1.4, GFR 25, glucose of 196, calcium of 8.2, AST is 16, proBNP of 673, CTA shows no pulmonary embolism, no acute cardiopulmonary disease, Inferior and posterior nonuniform wall thickening of the bladder with a small bladder diverticulum likely related to chronic outlet obstruction from the enlarged prostate. There is some stranding along the base of bladder and would correlate with urinalysis to exclude post urinary tract infection/cystitis and Large retroperitoneal hematoma beginning in the right lower quadrant along the anterior margin of the psoas muscle and extending caudally to the distal femoral insertion of the iliopsoas tendon at the anterior right thigh. EKG shows sinus rhythm with first-degree AV block. Patient being admitted for car diac workup. However patient UTI and pulmonary edema. Review of Systems Review of Systems: 12 systems were reviewed and are negativ e except for as per HPI. [facility] Past Medical History Medical History (Updated 06/23/25 @ 23:59 by Jaquelin Kruger APRN) BPH (benign prostatic hyperplasia) CKD (chronic kidney disease) Diabetes Hypertension Depression COPD (chronic obstructive pulmonary disease) Social History Social History Smoking status: Former smoker Tobacco type: cigarettes Second hand tobacco smoke exposure: Yes Alcohol intake: former Substance use: former Lack of Transportation: No Lack of Food: Never True Current Housing: I Have Housing Concerned About Future Housing: No Difficulty Paying Gas/Electric Bills: No Difficulty Paying for Meds: No Currently Unemployed: No Education: Associate Degree Difficulty w/ Childcare or Family Care: No Spiritual care concerns: No Meds Home Medications and Allergies Home Medications ?Medication ?Instructions ?Recorded ?Confirmed ?Type acetaminophen 325 mg capsule 325 mg PO Q4H PRN fever o r pain 06/07/25 06/23/25 History acetaminophen 500 mg tablet 500 mg PO BID 06/07/25 History albuterol sulfate 2.5 mg/3 mL 2.5 mg inhalation Q8H TN N 06/07/25 06/23/25 History (0.083 %) solution for nebulization shortness of breat h or wheezing amlodipine 10 mg tablet 10 mg PO DAILY 06/07/2506/08 History apixaban 2.5 mg tablet (Eliquis) 2.5 mg PO Q12H 06/23/25 History atorvastatin 20 mg tablet 20 mg PO QPM 06/07/25 History cholecalciferol (vitamin D3) 125 125 mcg PO DAILY 05/1106/23/25 History mcg (5,000 unit) tablet escitalopram oxalate 10 mg tablet 5 mg PO DAILY 06/23/25 History fluticasone 250 mcg-salmeterol 50 1 inh inhalation Q12 H 06/07/25 06/23/25 History mcg/dose blistr powdr for inhalation folic acid 400 mcg tablet 400 mcg PO DAILY 06/07/25 History hydralazine 100 mg tablet 100 mg PO TID 06/07/2506/23 History insulin lispro 100 unit/mL 1 sliding scale dose subcut BID 06/07/25 06/23/25 History subcutaneous pen (Humalog KwikPen (U-100) Insulin) linagliptin 5 mg tablet (Tradjenta) 5 mg PO DAILY 05/1106/23/25 History loperamide 2 mg capsule 2 mg PO Q12H PRN loose stool 06/07/25 06/23/25 History loratadine 10 mg tablet (Allergy 10 mg PO DAILY 06/23/25 History Relief (loratadine)) magnesium hydroxide 2,400 mg/10 mL 30 ml PO DAILY PRN constipation 06/07/25 06/23/25 History oral suspension (Milk Of Magnesia Concentrated) metoprolol tartrate 50 mg tablet 50 mg PO DAILY 06/23/25 History mirabegron 25 mg tablet,extended 25 mg PO HS 06/07/25 06/23/25 History release 24 hr (Myrbetriq) mirtazapine 15 mg tablet 15 mg PO HS 06/07/25 5 History sennosides 8.6 mg tablet (senna) 8.6 mg PO DAILY 06/0706/23/25 History torsemide 20 mg tablet 40 mg PO DAILY 06/07/2506/08 History trazodone 100 mg tablet 100 mg PO HS 06/07/25 History vilazodone 40 mg tablet 40 mg PO DAILY 06/07/2506/08 History zolpidem 10 mg tablet 7.5 mg PO HS 06/07/25 History potassium chloride 10 mEq 10 meq PO DAILY #20 caps 03/0206/23/25 Rx capsule,extended release furosemide 40 mg tablet 40 mg PO Q12H 06/23/2506/23 History insulin glargine 100 unit/mL (3 6 unit subcut HS 06/2306/23/25 History mL) subcutaneous pen (Lantus Solostar U-100 Insulin) Allergies Allergy/AdvReac Type Severity Reaction Status Date / Time No Known Allergies Allergy Verified 06/23/25 17:47 Vital Signs Vital Signs - 24 hr 06/23/25 11:07 06/23/25 12:26 06/23/25 12:37 Temperature 98.1 F Pulse Rate 96 79 82 Respiratory Rate 26 H 22 H 22 H Blood Pressure 125/60 Pulse Oximetry 94 Oxygen Delivery Nasal Cannula Oxygen Flow Rate 4 Exam Narrative: General: Ill-appearing no acute distress, diaphoretic HEENT: normocephalic, atraumatic. Mucous membranes moist. EOMI, PERRLA, bilateral sclera anicteric, no conjunctival injection. Neck supple without JVD, lymphadenopathy, or bruit. Respiratory: Tachypneic, coarse, 4 L nasal cannula Cardiovascular: Regular rate and rhythm, normal S1-S2 upon ascultation. No murmurs, rubs, or clicks. PMI is nondisplaced, capillary refill less than 3 second. Abdomen: Obese Soft, round, no pulsatile masses, nondistended and nontender. No rebound, no guarding. No CVA tenderness, no hepatosplenomegaly. Bowel sounds present to all four quadrants. No high pitch or tinkling sounds, resonant to percussion. Extremities: No cyanosis, clubbing, . Pulses are palpable 2/2. Active ROM to all four extremities. Lower extremity edema Neuro: Alert and orientated x 4. PERRLA. Cranial nerves 2-12 intact without focal deficit. Skin: Warm, dry, and intact, without rash, erythema, or lesion. Psych: pleasant, cooperative, normal speech, normal affect, no hallucinations, no dysarthia H&P: Results Labs Labs: Short CBC 06/23/25 Range/Units 11:32 WBC 19.3 H (4.5-10.0) K/mm3 Hgb 10.6 L (14.0-18.0) g/dL Hct 35.8 L (42.0-52.0) % Plt Count 217 (150-375) k/mm3 BMP 06/23/25 11:32 Sodium 141 Potassium 3.7 Chloride 103 Carbon Dioxide 30 BUN 35 H Creatinine 2.50 H Glucose 196 H Calcium 8.2 L Cardiac Enzymes 06/23/25 Range/Units 11:32 Troponin I 0.013 (0.000-0.034) ng/mL Liver Function 06/23/25 Range/Units 11:32 Total Bilirubin 0.6 (0.2-1.3) mg/dL AST 16 L (17-59) U/L ALT 13 (6-50) U/L Alkaline Phosphatase 68 (38-126) U/L Albumin 3.6 (3.5-5.1) g/dL Assessment and Plan Assessment and plan (1) UTI (urinary tract infection): Code(s): N39.0 - Urinary tract infection, site not specified Status: Acute Assessment and Plan: IV Rocephin Stopping IV fluids due to fluid overload (2) Chest pain: Code(s): R07.9 - Chest pain, unspecified Status: Acute Assessment and Plan: Aspirin given in ED Trend troponins EKGs p.r.n. Nitro p.r.n. Telemetry monitoring (3) CHF (congestive heart failure): Code(s): I50.9 - Heart failure, unspecified Status: Acute Assessment and Plan: Fluid overload Holding home diuretics IV Lasix (4) Leukocytosis: Code(s): D72.829 - Elevated white blood cell count, unspecified Status: Acute Assessment and Plan: UA 3+ leukocyte esterase Blood cultures pending Azithromycin and Rocephin given in emergency room Chest x-ray in a.m. . (5) COPD (chronic obstructive pulmonary disease): Code(s): J44.9 - Chronic obstructive pulmonary disease, unspecified Status: Acute Assessment and Plan: Possible COPD exacerbation DuoNebs Guaifenesin Rocephin and doxy L (6) COREY (acute kidney injury): Code(s): N17.9 - Acute kidney failure, unspecified Status: Acute Assessment and Plan: DC IV fluids due to fluid overload Avoid nephrotoxic medications as patient needs aggressive diuresis BMP in the morning (7) BPH (benign prostatic hyperplasia): Code(s): N40.0 - Benign prostatic hyperplasia without lower urinary tract symptoms Status: Acute Assessment and Plan: CT showing Inferior and posterior nonuniform wall thickening of the bladder with a small bladder diverticulum likely related to chronic outlet obstruction from the enlarged prostate. There is some stranding along the base of bladder and would correlate with urinalysis to exclude post urinary tract infection/cystitis. No other acute intra-abdominal/pelvic process. Flomax added patient should be discharged on this medication Bladder scan and straight cath as needed UA UTI (8) Hypocalcemia: Code(s): E83.51 - Hypocalcemia Status: Acute Assessment and Plan: Replete BMP in the morning (9) Hemoperitoneum: Code(s): K66.1 - Hemoperitoneum Status: Acute Assessment and Plan: CT showing Large retroperitoneal hematoma beginning in the right lower quadrant along the anterior margin of the psoas muscle and extending caudally to the distal femoral insertion of the iliopsoas tendon at the anterior right thigh. Is a dictation error and is a lipoma not hematoma No intervention needed (10) Depression: Code(s): F32.A - Depression, unspecified Status: Acute Assessment and Plan: Continue Lexapro (11) Hypertension: Code(s): I10 - Essential (primary) hypertension Status: Acute Assessment and Plan: Hold antihypertensives while aggressively diuresing (12) Diabetes: Code(s): E11.9 - Type 2 diabetes mellitus without complications Status: Acute Assessment and Plan: Hold oral diabetic medications Continue home Asiya barraza Quality VTE Prophylaxis VTE prophylaxis: mechanical ordered and pharmacologic ordered Hospitalist MIPS Advance Care Plan I have confirmed that the patient's Advanced Care Plan is present, code status is documented, or surrogate decision maker is listed in patient medical record.: Yes Medication Reconciliation I have utilized all available resources to obtain, update and review the patients current medications (includes all prescriptions, OTC, herbals, cannabis, and nutritional supplements).: Yes
[2025-06-23] MEDS: SODIUM CHLORIDE 0.9% IV 1,000 ML 100 ML IV CONT (16:39)
[2025-06-23] MEDS: SODIUM CHLORIDE 0.9% IV 500 ML IV CONT (16:39)
[2025-06-23] MEDS: TAMSULOSIN HCL 0.4 MG CAPSULE PO (16:39)
[2025-06-23] MEDS: DOCUSATE SODIUM 100 MG CAPSULE PO (16:59)
[2025-06-23] MEDS: INSULIN ASPART (*BKC) 100 UNITS/ML 7 UNITS SUB-Q (17:01)
--- NOTE | 2025-06-23 17:08 | ADMGEN ---
This patient, Eliezer Pierson, was admitted to IMU Room 207-01 at 1627. Patient/family oriented to hospital policies and general routines including ID bracelet, bed and alarms, visiting hours, pain management, procedures, bathroom and other care routines, personal items, smoking policy, room service/diet, and visiting hours. Information on how to activate the Rapid Response Team has been discussed. Patient/Family are encouraged to report perceived risks to care and to ask questions if they do not understand what they are told or what they should do.
[2025-06-23 18:03] LABS: Troponin I < 0.012 ng/mL (0.000-0.034)
[2025-06-23] MEDS: ATORVASTATIN 20 MG TABLET PO (18:57)
[2025-06-23 20:57] LABS: Add Urine Microscopic? YES; Appearance Urine Cloudy (Clear); Glucose Urine UA Negative (Negative); Leukocyte Esterase Ur 3+ LEU/UL (Negative); Need Manual Microscopic Reviewed; Nitrate Urine Negative (Negative); Specific Grav Ur 1.019 (1.001-1.035)
[2025-06-23 21:08] LABS: Troponin I < 0.012 ng/mL (0.000-0.034)
[2025-06-23] MEDS: INSULIN GLARGINE (*BKC) 100 UNITS/ML 6 UNITS SUB-Q (21:35)
[2025-06-23] MEDS: FUROSEMIDE INJ 40 MG/4 ML VIAL IV PUSH (21:35)
[2025-06-23] MEDS: MIRTAZAPINE 15 MG TABLET PO (21:36)
[2025-06-23] MEDS: cefTRIAXone 1 GM in SODIUM CHLORIDE 0.9% IV 50 ML 100 ML IVPB (21:36)
[2025-06-23] MEDS: ACETAMINOPHEN 325 MG TABLET 650 MG PO (21:36)
[2025-06-23] MEDS: ZOLPIDEM TARTRATE (*CRX) 2.5 MG TABLET 7.5 MG PO (21:36)
[2025-06-23] MEDS: APIXABAN 2.5 MG TABLET PO (21:36)
[2025-06-23] MEDS: MIRABEGRON 25 MG ER TABLET PO (21:36)
[2025-06-24] VITALS (20 sets, daily range): BP systolic 124–144; BP diastolic 52–82; PULSE 76–102; RESP 16–21; TEMP 36.7–37.1; O2SAT 86–94
--- NOTE | 2025-06-24 | EST_ITS ---
Patient Info Name: Eliezer Pierson Age: 75 years : 1950 Gender: Male Ht: 72 in Wt: 306 lbs BSA: 2.72 m2 HR: 86 bpm BP: 134 / 50 mmHg Exam Date: 06/24/2025 9:51 AM Patient Status: I Admit Date: 06/24/2025 Exam Type: CA stress jaxon w NM A regadenoson stress test was performed. Staff Referring Physician: Mendez Rodrigues Attending Provider: Katarina Sanz Exercise Technologist: Charlene James Exercise Physician: Tatum Thacker Summary 1. Baseline EKG showed atrial fibrillation. EKG portion of the pharmacological stress test negative for ischemia by EKG criteria. Correlate with SPECT. Protocol: Lexiscan Stress ECG Details Stage: REST Duration (min): 1 min : 51 sec HR (bpm): 85 SBP (mmHg): 134 DBP (mmHg): 50 Stage: REST Duration (min): 7 min : 8 sec HR (bpm): 86 SBP (mmHg): 134 DBP (mmHg): 50 Stage: STAGE 1 Duration (min): 1 min : 0 sec HR (bpm): 92 SBP (mmHg): 122 DBP (mmHg): 51 Stage: RECOVERY Duration (min): 1 min : 0 sec HR (bpm): 97 SBP (mmHg): 122 DBP (mmHg): 51 Stage: RECOVERY Duration (min): 2 min : 0 sec HR (bpm): 98 SBP (mmHg): 122 DBP (mmHg): 51 Stage: RECOVERY Duration (min): 3 min : 0 sec HR (bpm): 94 SBP (mmHg): 118 DBP (mmHg): 66 Stage: RECOVERY Duration (min): 4 min : 0 sec HR (bpm): 95 SBP (mmHg): 118 DBP (mmHg): 66 Stage: RECOVERY Duration (min): 5 min : 0 sec HR (bpm): 95 SBP (mmHg): 122 DBP (mmHg): 67 Stage: RECOVERY Duration (min): 5 min : 15 sec HR (bpm): 91 SBP (mmHg): 122 DBP (mmHg): 67 Rest HR: 86 bpm Peak HR: 99 bpm Rest Sys BP: 134 mmHg Peak Sys BP: 122 mmHg Max Pred HR: 147 bpm % Max Pred HR: 67 % Target HR: 125 bpm Max RPP: 12,078 bpm*mmHg Total Time: 1 min : 0 sec Rest Blanco BP: 50 mmHg Peak Blanco BP: 67 mmHg Total Dose: 0.4 mg Report Signatures
--- NOTE | 2025-06-24 00:07 | PCRCNOTE ---
Patient unable to do overnight oximetry study due to being on 3L of O2. Study to be achieved on room air.
[2025-06-24] MEDS: DOXYCYCLINE IV 100 MG in SODIUM CHLORIDE 0.9% IV 100 ML IVPB ×2 (00:22→12:25)
[2025-06-24] MEDS: CALCIUM GLUC 1,000 MG/NS 50 ML 1,000 MG/50 ML BAG 100 MG IVPB (00:27)
[2025-06-24] MEDS: IPRATROPIUM 0.5 MG/ALBUTEROL SULFATE 2.5 MG (BASE) AMPUL.NEB 3 ML INHALATION ×4 (02:08→20:36)
[2025-06-24 05:31] LABS: Hematocrit 32.4 % (42.0-52.0); Hemoglobin 9.6 g/dL (14.0-18.0); Immature Granulocyte Percent A 0.9 % (0-0.5); Lymphocytes Absolute Auto 1.11 K/mm3 (0.9-3.2); Mean Corpuscular HGB Conc 29.6 g/dl (32-36); Mean Corpuscular Hemoglobin 27.7 pg (26-34); Mean Corpuscular Volume 93.6 fl (80-100); Nucleated Red Blood Cells Absolute Auto 0.000 K/mm3 (0.0-0.012); Nucleated Red Blood Cells Perc 0.0 % (0.0-0.2); Platelet Count Result 220 k/mm3 (150-375); Red Blood Count 3.46 M/mm3 (4.6-6.20); White Blood Count 13.8 K/mm3 (4.5-10.0)
[2025-06-24 05:43] LABS: Anion Gap 8 mmol/L (4-12); Blood Urea Nitrogen 30 mg/dL (9-20); Calcium 7.8 mg/dL (8.4-10.2); Carbon Dioxide 31 mmol/L (22-30); Chloride 101 mmol/L (98-107); Estimated CRCL calculation 39 ml/min; Estimated Glomerular Filt Rate 29; Glucose 126 mg/dL (65-110); Potassium 3.4 mmol/L (3.4-5.0); Sodium 140 mmol/L (137-145)
[2025-06-24 05:57] LABS: Hypochromasia Occasional; Schistocytes None Seen
--- NOTE | 2025-06-24 08:55 | P.PNIM_ITS ---
Progress Note: A&P Assessment and Plan (1) UTI (urinary tract infection): Code(s): N39.0 - Urinary tract infection, site not specified Status: Acute (2) Chest pain: Code(s): R07.9 - Chest pain, unspecified Status: Acute (3) CHF (congestive heart failure): Code(s): I50.9 - Heart failure, unspecified Status: Acute (4) Leukocytosis: Code(s): D72.829 - Elevated white blood cell count, unspecified Status: Acute (5) COPD (chronic obstructive pulmonary disease): Code(s): J44.9 - Chronic obstructive pulmonary disease, unspecified Status: Acute (6) COREY (acute kidney injury): Code(s): N17.9 - Acute kidney failure, unspecified Status: Acute (7) BPH (benign prostatic hyperplasia): Code(s): N40.0 - Benign prostatic hyperplasia without lower urinary tract symptoms Status: Acute (8) Hypocalcemia: Code(s): E83.51 - Hypocalcemia Status: Acute (9) Hemoperitoneum: Code(s): K66.1 - Hemoperitoneum Status: Acute (10) Depression: Code(s): F32.A - Depression, unspecified Status: Acute (11) Hypertension: Code(s): I10 - Essential (primary) hypertension Status: Acute (12) Diabetes: Code(s): E11.9 - Type 2 diabetes mellitus without complications Status: Acute Plan 75-year-old male with history of dementia, heart failure, diabetes who recently had pneumonia with brought in by EMS from his halfway chest pain. Patient states that the chest pain started this morning and is dull in nature. On bedside exam patient denies chest pain. However he is diaphoretic, afebrile, tachypneic on 3 L of oxygen. Patient has general complains amylase however he does not give details. Denies nausea and vomiting. Lab work shows leukocytosis at 19.3, hemoglobin 10.6, BUN of 35, creatinine of 2.50 with baseline being around 1.4, GFR 25, glucose of 196, calcium of 8.2, AST is 16, proBNP of 673, CTA shows no pulmonary embolism, no acute cardiopulmonary disease, Inferior and posterior nonuniform wall thickening of the bladder with a small bladder diverticulum likely related to chronic outlet obstruction from the enlarged prostate. There is some stranding along the base of bladder and would correlate with urinalysis to exclude post urinary tract infection/cystitis and Large retroperitoneal hematoma beginning in the right lower quadrant along the anterior margin of the psoas muscle and extending caudally to the distal femoral insertion of the iliopsoas tendon at the anterior right thigh. EKG shows sinus rhythm with first-degree AV block. Chest pain serial troponin negative. EKG with nonspecific ST-T changes. BNP 673. Chest x-ray with no acute cardiopulmonary abnormality. Chest CT abdomen pelvis with contrast with mild dependent atelectasis and corresponding mild volume loss in the bilateral lower lobes. No pulmonary edema pleural effusion or airspace opacities suspicious for pneumonia. Atherosclerotic coronary artery calcification noted no pericardial effusion. Thoracic aorta normal with no dissection. Moderate thoracic spondylosis with bridging osteophytes at multiple levels consistent with diffuse idiopathic skeletal hyperostosis. Lexiscan with small mild infarct and inferior wall. Cardiology consult placed on aspirin UTI UA with more than 100 WBC on Rocephin Mild hypoxia Needing oxygen supplementation elevated D-dimer possible COPD exacerbation. DuoNeb cough and S and Rocephin and doxy. COREY on CKD stage 3 creatinine on admission was 2.5. Baseline creatinine in mid 1s Gallstones several noted on CT abdomen with no dilation wall thickening or pericolic inflammatory stranding suggesting acute cholecystitis. 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 Received IV Lasix. On oral Lasix home dose. Continue to monitor renal function Type 2 diabetes Hypertension Anxiety depression DVT prophylaxis on Eliquis Code status do not resuscitate Subjective Date/time seen: 06/24/25 08:55 Interval history: Chart reviewed. Patient presented with chest pain. Described as dull ache rated 5 x 10 right side of the chest radiating to the right shoulder. Aggravating elevating factor. No shortness of breath. Patient was hypoxic on arrival at 88% received DuoNeb with slow improvement to low 90s. With EMS. In the ED his vitals was stable with 4 L oxygen via nasal cannula. Laboratory studies showed WBC count of 19,000 hemoglobin of 10.6 platelet count of 217. Sodium 141 potassium 3.7 chloride 103 bicarbonate 30 BUN 35 creatinine 2.5 blood glucose 196. BNP slightly elevated at 673. Troponins were negative. Lipase normal. CT abdomen pelvis demonstrated changes consistent with UTI. Large lipoma noted on right retroperitoneal space. This was will additionally read as hematoma. EKG showed sinus rhythm with no acute ST-T changes. Serial troponins has been negative. He was recently admitted and discharged with pneumonia on 06/13/2025. He underwent stress test this a.m. which was reviewed. Review of Systems Review of Systems: 12 systems were reviewed and are negativ e except for as per HPI. Exam Narrative: General: Chronically Ill-appearing no acute distress HEENT: normocephalic, atraumatic. Mucous membranes moist. EOMI, PERRLA, Respiratory: Diminished breath sounds bilaterally no wheezes or rhonchi. Cardiovascular: Regular rate and rhythm, normal S1-S2 upon ascultation. No murmurs, rubs, or clicks. Abdomen: Obese Soft, round, no pulsatile masses, nondistended and nontender. Delete Extremities: Trace edema, No cyanosis, clubbing, . Pulses are palpable 2/2. Active ROM to all four extremities. Neuro: Alert and orientated x 4. PERRLA. Cranial nerves 2-12 intact without focal deficit. Skin: Warm, dry, and intact, without rash, erythema, or lesion. Psych: pleasant, cooperative, normal speech, normal affect, no hallucinations, no dysarthia Objective Data Vital Signs Vital Signs: Vital Signs - 24 hr 06/23/25 11:07 06/23/25 11:36 06/23/25 11:45 Temperature 98.1 F Pulse Rate 96 80 80 Respiratory Rate 26 H 18 24 H Blood Pressure 125/60 115/58 L Pulse Oximetry 94 93 91 Oxygen Delivery Nasal Cannula Oxygen Flow Rate 4 06/23/25 11:46 06/23/25 12:26 06/23/25 12:37 Temperature Pulse Rate 80 79 82 Respiratory Rate 23 H 22 H 22 H Blood Pressure Pulse Oximetry 91 Oxygen Delivery Oxygen Flow Rate 06/23/25 12:43 06/23/25 13:31 06/23/25 13:56 Temperature Pulse Rate 79 80 82 Respiratory Rate 22 H 23 H 25 H Blood Pressure 114/60 Pulse Oximetry 92 89 L 89 L Oxygen Delivery Oxygen Flow Rate 06/23/25 14:00 06/23/25 14:01 06/23/25 14:24 Temperature Pulse Rate 80 80 81 Respiratory Rate 21 H 26 H 21 H Blood Pressure 115/62 Pulse Oximetry 88 L 89 L 91 Oxygen Delivery Oxygen Flow Rate 06/23/25 14:30 06/23/25 14:31 06/23/25 14:45 Temperature Pulse Rate 79 78 77 Respiratory Rate 21 H 21 H 21 H Blood Pressure 117/69 Pulse Oximetry 92 91 90 Oxygen Delivery Oxygen Flow Rate 06/23/25 14:46 06/23/25 15:00 06/23/25 15:01 Temperature Pulse Rate 79 79 80 Respiratory Rate 23 H 27 H 24 H Blood Pressure 119/64 113/62 Pulse Oximetry 90 91 89 L Oxygen Delivery Oxygen Flow Rate 06/23/25 15:15 06/23/25 15:16 06/23/25 15:30 Temperature Pulse Rate 79 79 78 Respiratory Rate 23 H 23 H 21 H Blood Pressure 132/67 Pulse Oximetry 90 89 L 89 L Oxygen Delivery Oxygen Flow Rate 06/23/25 15:31 06/23/25 15:45 06/23/25 15:46 Temperature Pulse Rate 78 79 79 Respiratory Rate 23 H 11 L 21 H Blood Pressure 115/62 113/62 Pulse Oximetry 90 88 L 95 Oxygen Delivery Oxygen Flow Rate 06/23/25 16:00 06/23/25 16:01 06/23/25 16:15 Temperature Pulse Rate 79 79 79 Respiratory Rate 20 24 H 25 H Blood Pressure 121/62 Pulse Oximetry 90 90 91 Oxygen Delivery Oxygen Flow Rate 06/23/25 16:16 06/23/25 16:52 06/23/25 18:00 Temperature 98.2 F Pulse Rate 80 80 84 Respiratory Rate 25 H 22 H Blood Pressure 124/59 L 115/60 Pulse Oximetry 90 94 Oxygen Delivery Oxygen Flow Rate 06/23/25 20:00 06/23/25 20:00 06/23/25 20:00 Temperature 100.4 F H Pulse Rate 80 76 Respiratory Rate 20 Blood Pressure 127/54 L Pulse Oximetry 92 92 Oxygen Delivery Nasal Cannula Oxygen Flow Rate 3 06/23/25 20:21 06/23/25 22:00 06/23/25 23:37 Temperature Pulse Rate 89 Respiratory Rate Blood Pressure Pulse Oximetry 92 95 Oxygen Delivery Nasal Cannula Nasal Cannula Oxygen Flow Rate 3 3 06/23/25 23:42 06/24/25 00:00 06/24/25 02:00 Temperature 99.9 F H Pulse Rate 77 79 76 Respiratory Rate 22 H Blood Pressure 137/58 L Pulse Oximetry 95 Oxygen Delivery Oxygen Flow Rate 06/24/25 02:08 06/24/25 02:15 06/24/25 04:00 Temperature Pulse Rate 76 77 Respiratory Rate 20 20 Blood Pressure Pulse Oximetry 93 Oxygen Delivery Nasal Cannula Oxygen Flow Rate 2 06/24/25 04:00 06/24/25 04:00 06/24/25 06:00 Temperature 98.7 F Pulse Rate 81 80 84 Respiratory Rate 18 Blood Pressure 127/52 L Pulse Oximetry 93 Oxygen Delivery Oxygen Flow Rate 06/24/25 07:34 06/24/25 07:35 06/24/25 07:37 Temperature 98.6 F Pulse Rate 87 Respiratory Rate 18 Blood Pressure 144/68 H Pulse Oximetry 93 86 L 90 Oxygen Delivery Nasal Cannula Nasal Cannula Oxygen Flow Rate 2 3 06/24/25 07:37 06/24/25 07:46 Temperature Pulse Rate 82 83 Respiratory Rate 20 20 Blood Pressure Pulse Oximetry Oxygen Delivery Oxygen Flow Rate Intake/Output Intake/Output: Intake & Output 06/21/25 06/22/25 06/23/25 06/24/25 23:59 23:59 23:59 23:59 Intake Total 890 500 Output Total 0 300 Balance 890 200 Meds/Results Medications: Active Medications Generic Name Dose Route Start Last Admin Trade Name Freq PRN Reason Stop Dose Admin Acetaminophen 650 mg 06/23/25 15:57 06/23/25 21:36 Acetaminophen 325 Mg Tablet PO 650 mg Q4H PRN Administration Mild Pain (1-3) or Fever Albuterol 2.5 mg 06/23/25 17:46 Albuterol Sulfate Neb 2.5 Mg/3 Ml Inh INHALATION Q8HRT PRN Shortness Of Breath Or Wheezin Albuterol/Ipratropium 3 ml 06/24/25 02:00 06/24/25 07:35 Ipratropium 0.5 Mg/Albuterol Sulfate 2.5 Mg (Base) Ampul.Neb 3 Ml INHALATION 3 ml Q6HRT SAAD Administration Amlodipine Besylate 10 mg 06/24/25 09:00 Amlodipine Besylate 10 Mg Tablet PO DAILY SAAD Apixaban 2.5 mg 06/23/25 21:00 06/23/25 21:36 Apixaban 2.5 Mg Tablet PO 2.5 mg Q12HR SAAD Administration Atorvastatin Calcium 20 mg 06/23/25 18:00 06/23/25 18:57 Atorvastatin 20 Mg Tablet PO 20 mg QPM SAAD Administration Dextrose 12.5 gm 06/23/25 14:51 Dextrose 50% 25 Gm/50 Ml Syringe IV PUSH PRN PRN Hypoglycemia Protocol Docusate Sodium 100 mg 06/23/25 17:00 06/23/25 16:59 Docusate Sodium 100 Mg Capsule PO 100 mg BID SAAD Administration Escitalopram Oxalate 5 mg 06/24/25 09:00 Escitalopram Oxalate 5 Mg Tablet PO DAILY SAAD Furosemide 40 mg 06/23/25 21:00 Furosemide 40 Mg Tablet PO On Hold: 06/23/25 21:00 Q12HR SAAD Glucagon 1 mg 06/23/25 14:51 Glucagon For Inj 1 Mg Vial IM PRN PRN Hypoglycemia Protocol Glucose 15 gm 06/23/25 14:51 Glucose Oral Gel 15 Gm Of Glucse In 37.5 Gm Tube PO PRN PRN Hypoglycemia Protocol Guaifenesin 1,200 mg 06/24/25 09:00 Guaifenesin 12 Hr 600 Mg Tabcr PO Q12HR SAAD Hydralazine HCl 100 mg 06/24/25 09:00 Hydralazine Hcl 50 Mg Tablet PO TID SAAD Dextrose 1,000 mls @ 100 mls/hr 06/23/25 14:51 Dextrose 5% 1,000 Ml IVPB PRN PRN Hypoglycemia Protocol Ceftriaxone Sodium 1 gm/ 50 mls @ 100 mls/hr 06/23/25 21:00 06/23/25 22:59 Sodium Chloride IVPB Infused Q24H SAAD Infusion Doxycycline Hyclate 100 mg/ 100 mls @ 100 mls/hr 06/24/25 00:00 06/24/25 00:22 Sodium Chloride IVPB 100 mls/hr Q12H SAAD Administration Insulin Aspart 2 - 5 units 06/24/25 08:00 Insulin Aspart (*Bkc) 100 Units/Ml SUB-Q TIDWM SAAD Protocol Insulin Glargine 6 units 06/23/25 21:00 06/23/25 21:35 Insulin Glargine (*Bkc) 100 Units/Ml SUB-Q 6 units HS SAAD Administration Loratadine 10 mg 06/24/25 09:00 Loratadine 10 Mg Tablet PO DAILY COUNT INCLUDES THE [facility] Metoprolol Tartrate 50 mg 06/24/25 09:00 Metoprolol Tartrate 50 Mg Tab PO DAILY COUNT INCLUDES THE [facility] Mirabegron 25 mg 06/23/25 21:00 06/23/25 21:36 Mirabegron 25 Mg Er Tablet PO 25 mg HS SAAD Administration Mirtazapine 15 mg 06/23/25 21:00 06/23/25 21:36 Mirtazapine 15 Mg Tablet PO 15 mg HS SAAD Administration Miscellaneous Information 0 each 06/23/25 00:01 Vilazodone 40mg Nonform Can Pt Bring From Home? XX 07/23/25 00:00 CLARIFY COUNT INCLUDES THE [facility] Morphine Sulfate 2 mg 06/23/25 16:07 Morphine Sulfate (*Crx) 4 Mg/Ml Inj IV PUSH Q4H PRN Pain Rated 7-10 Nitroglycerin 0.4 mg 06/23/25 15:57 Nitroglycerin Sl 0.4 Mg Tablet SUBLINGUAL Q5MIN PRN Chest Pain Non-Formulary Medication 40 mg 06/24/25 09:00 Vilazodone PO 07/24/25 08:59 DAILY COUNT INCLUDES THE [facility] Perflutren Lipid Microsphere 0 ml 06/23/25 15:59 Perflutren Lipid Microspheres 1.5 Ml Vial Diluted To 10 Ml Total Volume IV PUSH 06/26/25 16:00 ONCE PRN adequate visualization Protocol Potassium Chloride 10 meq 06/24/25 09:00 Potassium Chloride 10 Meq Er Tablet PO DAILY COUNT INCLUDES THE [facility] Senna 8.6 mg 06/24/25 09:00 Sennosides 8.6 Mg Tablet PO DAILY COUNT INCLUDES THE [facility] Tamsulosin HCl 0.4 mg 06/24/25 09:00 Tamsulosin Hcl 0.4 Mg Capsule PO QAM COUNT INCLUDES THE [facility] Torsemide 40 mg 06/24/25 09:00 Torsemide 20 Mg Tablet PO DAILY COUNT INCLUDES THE [facility] Trazodone HCl 100 mg 06/24/25 00:00 06/24/25 00:22 Trazodone Hcl 50 Mg Tablet PO Not Given HS COUNT INCLUDES THE [facility] Zolpidem Tartrate 7.5 mg 06/23/25 21:00 06/23/25 21:36 Zolpidem Tartrate (*Crx) 2.5 Mg Tablet PO 7.5 mg HS SAAD Administration Radiology Results: ITS Impressions Chest X-Ray 06/23/25 12:13 Impression: No acute cardiopulmonary abnormality. Chest/Abdomen/Pelvis CT 06/23/25 13:48 IMPRESSION: 1. No acute cardiopulmonary disease. 2. Inferior and posterior nonuniform wall thickening of the bladder with a small bladder diverticulum likely related to chronic outlet obstruction from the enlarged prostate. There is some stranding along the base of bladder and would correlate with urinalysis to exclude post urinary tract infection/cystitis. No other acute intra-abdominal/pelvic process. 3. Large retroperitoneal hematoma beginning in the right lower quadrant along the anterior margin of the psoas muscle and extending caudally to the distal femoral insertion of the iliopsoas tendon at the anterior right thigh. ADDENDUM: 06/23/25 1421 CORRECTION: There is a dictation error in the third impression. With the correction capitalized this should read- 3. Large retroperitoneal LIPOMA beginning in the right lower quadrant along the anterior margin of the psoas muscle and extending caudally to the distal femoral insertion of the iliopsoas tendon at the anterior right thigh. Labs Labs: Laboratory Results - last 24 hr 06/23/25 06/23/25 06/23/25 11:32 16:43 17:17 WBC 19.3 H RBC 3.83 L Hgb 10.6 L Hct 35.8 L MCV 93.5 MCH 27.7 MCHC 29.6 L RDW 15.7 H Plt Count 217 MPV 10.1 Immature Gran % (Auto) 2.8 H Neut % (Auto) 83.8 H Lymph % (Auto) 6.2 L [place] % (Auto) 6.6 Eos % (Auto) 0.2 Baso % (Auto) 0.4 Lymph # (Auto) 1.20 [place] # (Auto) 1.3 H Eos # (Auto) 0.0 Baso # (Auto) 0.1 Abs Immat Gran (auto) 0.54 H Absolute Neuts (auto) 16.2 H Absolute Nucleated RBC 0.000 Band Neutrophils % Not Reportable Nucleated RBC % 0.0 Platelet Estimate Adequate Hypochromasia Occasional Schistocytes None seen PT 18.1 H INR 1.5 APTT 39.4 H D-Dimer 0.76 H Sodium 141 Potassium 3.7 Chloride 103 Carbon Dioxide 30 Anion Gap 8 BUN 35 H Creatinine 2.50 H Estim Creat Clear Calc 35 Estimated GFR 25 L Glucose 196 H POC Capillary Glucose 165 H Lactic Acid Calcium 8.2 L Total Bilirubin 0.6 AST 16 L ALT 13 Alkaline Phosphatase 68 Troponin I 0.013 < 0.012 NT-Pro-B Natriuret Pep 673 H Total Protein 7.3 Albumin 3.6 Lipase 37 Urine Color Urine Appearance Urine pH Ur Specific Oneco Urine Protein Urine Glucose (UA) Urine Ketones Ur Blood (Man) Urine Nitrate Urine Bilirubin Urine Urobilinogen Add Ur Microanalysis Leukocyte Esterase Rfl Urine RBC Urine WBC Ur Squamous Epith Cells Urine Bacteria Urine Casts 06/23/25 06/23/25 06/23/25 19:44 20:33 20:35 WBC RBC Hgb Hct MCV MCH MCHC RDW Plt Count MPV Immature Gran % (Auto) Neut % (Auto) Lymph % (Auto) [place] % (Auto) Eos % (Auto) Baso % (Auto) Lymph # (Auto) [place] # (Auto) Eos # (Auto) Baso # (Auto) Abs Immat Gran (auto) Absolute Neuts (auto) Absolute Nucleated RBC Band Neutrophils % Nucleated RBC % Platelet Estimate Hypochromasia Schistocytes PT INR APTT D-Dimer Sodium Potassium Chloride Carbon Dioxide Anion Gap BUN Creatinine Estim Creat Clear Calc Estimated GFR Glucose POC Capillary Glucose 170 H Lactic Acid 0.7 Calcium Total Bilirubin AST ALT Alkaline Phosphatase Troponin I NT-Pro-B Natriuret Pep Total Protein Albumin Lipase Urine Color Yellow Urine Appearance Cloudy H Urine pH 5.0 Ur Specific Oneco 1.019 Urine Protein Trace Urine Glucose (UA) Negative Urine Ketones Negative Ur Blood (Man) Trace Urine Nitrate Negative Urine Bilirubin Negative Urine Urobilinogen 0.2 Add Ur Microanalysis Reviewed Leukocyte Esterase Rfl 3+ H Urine RBC 3-5 H Urine WBC >100 H Ur Squamous Epith Cells None seen Urine Bacteria None seen Urine Casts 6-10 06/23/25 06/24/25 20:37 04:21 WBC 13.8 H RBC 3.46 L Hgb 9.6 L Hct 32.4 L MCV 93.6 MCH 27.7 MCHC 29.6 L RDW 15.6 H Plt Count 220 MPV 10.6 H Immature Gran % (Auto) 0.9 H Neut % (Auto) 83.2 H Lymph % (Auto) 8.0 L [place] % (Auto) 6.6 Eos % (Auto) 0.9 Baso % (Auto) 0.4 Lymph # (Auto) 1.11 [place] # (Auto) 0.9 H Eos # (Auto) 0.1 Baso # (Auto) 0.1 Abs Immat Gran (auto) 0.12 H Absolute Neuts (auto) 11.5 H Absolute Nucleated RBC 0.000 Band Neutrophils % Not Reportable Nucleated RBC % 0.0 Platelet Estimate Adequate Hypochromasia Occasional Schistocytes None seen PT INR APTT D-Dimer Sodium 140 Potassium 3.4 Chloride 101 Carbon Dioxide 31 H Anion Gap 8 BUN 30 H Creatinine 2.21 H Estim Creat Clear Calc 39 Estimated GFR 29 L Glucose 126 H POC Capillary Glucose Lactic Acid Calcium 7.8 L Total Bilirubin AST ALT Alkaline Phosphatase Troponin I < 0.012 NT-Pro-B Natriuret Pep Total Protein Albumin Lipase Urine Color Urine Appearance Urine pH Ur Specific Oneco Urine Protein Urine Glucose (UA) Urine Ketones Ur Blood (Man) Urine Nitrate Urine Bilirubin Urine Urobilinogen Add Ur Microanalysis Leukocyte Esterase Rfl Urine RBC Urine WBC Ur Squamous Epith Cells Urine Bacteria Urine Casts
[2025-06-24] MEDS: POTASSIUM CHLORIDE 10 MEQ ER TABLET PO (09:53)
[2025-06-24] MEDS: DOCUSATE SODIUM 100 MG CAPSULE PO ×2 (09:53→16:41)
[2025-06-24] MEDS: SENNOSIDES 8.6 MG TABLET PO (09:53)
[2025-06-24] MEDS: METOPROLOL TARTRATE 50 MG TAB PO (09:53)
[2025-06-24] MEDS: LORATADINE 10 MG TABLET PO (09:53)
[2025-06-24] MEDS: guaiFENesin 12 HR 600 MG TABCR 1200 MG PO ×2 (09:53→20:33)
[2025-06-24] MEDS: ESCITALOPRAM OXALATE 5 MG TABLET PO (09:54)
[2025-06-24] MEDS: TAMSULOSIN HCL 0.4 MG CAPSULE PO (09:54)
[2025-06-24] MEDS: APIXABAN 2.5 MG TABLET PO ×2 (09:54→20:33)
--- NOTE | 2025-06-24 16:00 | ECHO_ITS ---
Patient Info Name: Eliezer Pierson Age: 75 years : 1950 Gender: Male Ht: 72 in Wt: 306 lbs BSA: 2.72 m2 HR: 93 bpm BP: 127 / 52 mmHg Technical Quality: Good Exam Date: 06/24/2025 1:45 PM Patient Status: I Admit Date: 06/24/2025 Exam Type: CA echo doppler color flow Complete two-dimensional, color flow and Doppler transthoracic echocardiogram is performed. Staff Referring Physician: Jaquelin Kruger Forest Firefighter: Gilma Briscoe Attending Provider: Katarina Sanz Summary 1. Complete two-dimensional, color flow and Doppler transthoracic echocardiogram is performed. 2. Suboptimal image quality. Normal LV size, mild LVH, hyperdynamic LV systolic function, ejection fraction more than 70%. Pseudo normal/grade 2 diastolic dysfunction. Normal RV size and systolic function. Mild left enlargement. Mild MAC, no significant MR. Aortic valve is not well visualized. Mild aortic stenosis with RADHA 2.2 cm2 by Doppler; maximum velocity 1.8 meters per sec, mean gradient 6 mmHg. Unable to assess RVSP due to inadequate TR jet. Dilated IVC with normal respiratory collapse. Sinus of Valsalva 3.9 cm. Epicardial fat pad, no significant pericardial effusion. Left Ventricular Outflow Tract Name Value Normal LVOT 2D LVOT Diameter 2.0 cm LVOT Doppler LVOT Peak Velocity 123 cm/s LVOT Peak Gradient 5 mmHg LVOT Mean Gradient 3 mmHg LVOT VTI 29 cm LVOT VTI/AV VTI Ratio 0.8 LVOT Stroke Volume 95 ml LVOT CO 7.0 l/min LVOT CI 2.6 l/min/m2 Pulmonic Valve Name Value Normal RVOT Doppler RVOT Peak Velocity 109 cm/s RVOT Peak Gradient 5 mmHg PV Doppler PV Peak Velocity 123 cm/s PV Peak Gradient 6 mmHg Mitral Valve Name Value Normal MV Diastolic Function MV E Peak Velocity 94 cm/s MV A Peak Velocity 82 cm/s MV E/A 1.1 MV Decel Time (PW) 375 ms MV Annular TDI MV E/e' (Septal) 14.5 MV E/e' (Lateral) 10.8 MV E/e' (Average) 12.6 Aortic Valve Name Value Normal AV Doppler AV Peak Velocity 182 cm/s AV Peak Gradient 13 mmHg AV Mean Gradient 7 mmHg AV VTI 35 cm AV Area (Cont Eq VTI) 2.7 cm2 >=3.0 AV Area (Cont Eq Kevin) 2.2 cm2 AV DI (Kevin) 0.68 AV Regurgitation 2D LVOT Area 3.3 cm2 Ventricles Name Value Normal LV Dimensions 2D/MM IVS Diastolic Thickness (2D) 1.0 cm 0.6-1.0 LVID Diastole (2D) 3.9 cm 4.2-5.8 LVIW Diastolic Thickness (2D) 1.2 cm 0.6-1.0 LVID Systole (2D) 2.4 cm 2.5-4.0 LVOT Diameter 2.0 cm LV Mass (2D Cubed) 137.86 g 88.00-224.00 LV Mass Index (2D Cubed) 51 g/m2 49-115 Relative Wall Thickness (2D) 0.59 <=0.42 LV Fractional Shortening/Ejection Fraction 2D/MM LV Fractional Shortening (2D) 38 % 25-43 LV EF (2D Teichholz) 69 % LV Diastolic Volume (4C MOD) 127 ml LV EF (4C MOD) 64 % LV Diastolic Volume (2C MOD) 123 ml LV EF (2C MOD) 69 % LV Diastolic Volume (BP MOD) 126 ml 62-150 LV Diastolic Volume Index (BP MOD) 46 ml/m2 34-74 LV Systolic Volume (BP MOD) 43 ml 21-61 LV Systolic Volume Index (BP MOD) 16 ml/m2 11-31 LV EF (BP MOD) 66 % 52-72 LV Diastolic Length (4C) 9.4 cm LV Systolic Length (4C) 7.7 cm LV Stroke Volume (4C MOD) 82 ml Atria Name Value Normal LA Dimensions LA Volume (4C A-L) 51 ml LA Volume (BP A-L) 45 ml RA Dimensions RA Systolic Major [place] Length (4C) 5.3 cm 2.1-2.7 RA Area (4C) 13.8 cm2 <=18.0 Report Signatures
[2025-06-24] MEDS: ASPIRIN 81 MG ENTERIC TABLET PO (16:41)
[2025-06-24] MEDS: ATORVASTATIN 20 MG TABLET PO (17:23)
--- NOTE | 2025-06-24 17:45 | PC.NURSE ---
This patient, Eliezer Pierson, was received from IMU on 06/24/25 at 1700. Patient/family oriented to unit policies and routines
[2025-06-24] MEDS: cefTRIAXone 1 GM in SODIUM CHLORIDE 0.9% IV 50 ML 100 ML IVPB (20:32)
[2025-06-24] MEDS: MIRTAZAPINE 15 MG TABLET PO (20:33)
[2025-06-24] MEDS: ZOLPIDEM TARTRATE (*CRX) 2.5 MG TABLET 7.5 MG PO (20:33)
[2025-06-24] MEDS: INSULIN GLARGINE (*BKC) 100 UNITS/ML 6 UNITS SUB-Q (20:34)
[2025-06-24] MEDS: MIRABEGRON 25 MG ER TABLET PO (20:38)
--- NOTE | 2025-06-24 22:20 | PCRCNOTE ---
Pt requiring 3lpm to maintain SpO2 90% unable to do room air oximetry on apnea link
[2025-06-25] VITALS (15 sets, daily range): BP systolic 133–154; BP diastolic 62–85; PULSE 73–96; RESP 16–20; TEMP 36.3–36.9; O2SAT 80–95
[2025-06-25] MEDS: DOXYCYCLINE IV 100 MG in SODIUM CHLORIDE 0.9% IV 100 ML IVPB ×3 (00:46→23:46)
[2025-06-25] MEDS: IPRATROPIUM 0.5 MG/ALBUTEROL SULFATE 2.5 MG (BASE) AMPUL.NEB 3 ML INHALATION ×4 (01:57→19:47)
[2025-06-25] MEDS: ACETAMINOPHEN 325 MG TABLET 650 MG PO (03:17)
[2025-06-25 06:40] LABS: Hematocrit 33.9 % (42.0-52.0); Hemoglobin 10.0 g/dL (14.0-18.0); Immature Granulocyte Percent A 0.6 % (0-0.5); Lymphocytes Absolute Auto 1.01 K/mm3 (0.9-3.2); Mean Corpuscular HGB Conc 29.5 g/dl (32-36); Mean Corpuscular Hemoglobin 27.7 pg (26-34); Mean Corpuscular Volume 93.9 fl (80-100); Nucleated Red Blood Cells Absolute Auto 0.000 K/mm3 (0.0-0.012); Nucleated Red Blood Cells Perc 0.0 % (0.0-0.2); Platelet Count Result 226 k/mm3 (150-375); Red Blood Count 3.61 M/mm3 (4.6-6.20); White Blood Count 7.9 K/mm3 (4.5-10.0)
[2025-06-25 07:03] LABS: Alanine Aminotransferase 11 U/L (6-50); Albumin Level 3.3 g/dL (3.5-5.1); Alkaline Phosphatase 94 U/L (38-126); Anion Gap 4 mmol/L (4-12); Aspartate Amino Transferase 18 U/L (17-59); Bilirubin,Total 0.5 mg/dL (0.2-1.3); Blood Urea Nitrogen 25 mg/dL (9-20); Calcium 7.9 mg/dL (8.4-10.2); Carbon Dioxide 31 mmol/L (22-30); Chloride 102 mmol/L (98-107); Estimated CRCL calculation 49 ml/min; Estimated Glomerular Filt Rate 38; Glucose 169 mg/dL (65-110); Magnesium 2.3 mg/dL (1.6-2.3); Potassium 3.7 mmol/L (3.4-5.0); Sodium 137 mmol/L (137-145); Total Protein 6.9 g/dL (6.3-8.2)
[2025-06-25 07:10] LABS: Hypochromasia Occasional; Schistocytes None Seen
[2025-06-25] MEDS: POTASSIUM CHLORIDE 10 MEQ ER TABLET PO (09:09)
[2025-06-25] MEDS: ASPIRIN 81 MG ENTERIC TABLET PO (09:09)
[2025-06-25] MEDS: SENNOSIDES 8.6 MG TABLET PO (09:09)
[2025-06-25] MEDS: TAMSULOSIN HCL 0.4 MG CAPSULE PO (09:09)
[2025-06-25] MEDS: DOCUSATE SODIUM 100 MG CAPSULE PO ×2 (09:09→18:37)
[2025-06-25] MEDS: guaiFENesin 12 HR 600 MG TABCR 1200 MG PO ×2 (09:10→20:26)
[2025-06-25] MEDS: METOPROLOL TARTRATE 50 MG TAB PO (09:10)
[2025-06-25] MEDS: LORATADINE 10 MG TABLET PO (09:10)
[2025-06-25] MEDS: ESCITALOPRAM OXALATE 5 MG TABLET PO (09:10)
[2025-06-25] MEDS: APIXABAN 2.5 MG TABLET PO ×2 (09:10→20:27)
--- NOTE | 2025-06-25 12:03 | PM.CNCAR ---
Assessment and Plan Assessment and plan (1) Chest pain: Code(s): R07.9 - Chest pain, unspecified Status: Acute Plan 75-year-old male with multiple medical problems including hypertension, diabetes mellitus, CKD, cognitive impairment. Patient admitted to the hospital with chest pain. EKG shows sinus rhythm, no acute ST segment abnormality. Serial troponins negative. MPI reportedly showed small area of mild infarct involving mid inferior segment of left ventricle. Patient currently does not have active cardiac ischemic symptoms. MPI is a relatively low risk with small area of infarct, no ischemia. LVEF normal. Spoke with patient, and he has opted medical treatment. Continue low-dose aspirin; statin; beta-farnaz and CCB. May use nitroglycerin p.r.n.. Patient can follow-up as an outpatient, and will determine need for any invasive ischemic evaluation. Patient has CKD, and will have relatively high threshold for cardiac catheterization. Management of other medical problems as per primary care team. Will sign off. Call with any questions. History of Present Illness History of Present Illness Consult date/time: 06/25/25 12:03 Requesting physician: Mendez Rodrigues MD Reason For Visit: Chest Pain/UTI/COREY Narrative: DATE OF CONSULT: 06/25/2025 REASON FOR CONSULT: Abnormal stress test REQUESTING PHYSICIAN: MD Lilia CHIEF COMPLAINT: Shortness of breath HPI: 75-year-old male with multiple medical problems including hypertension, diabetes mellitus, CKD, cognitive impairment. Patient admitted to the hospital from senior care facility via EMS on 06/23/2025 with complaints of chest pain. Patient states that he uses wheelchair for ambulation. He is somewhat a poor historian due to cognitive impairment. Does not recall any prior cardiac history. EKG on my personal interpretation showed sinus rhythm, no acute ST segment abnormality. Serial troponin negative. Chest x-ray unremarkable. MPI from 06/24/2025 reportedly showed Small area of mild infarct involving mid inferior segment of left ventricle; Normal left ventricular ejection fraction measuring >70%. Review of Systems Review of Systems: As per HPI, otherwise System is gathered from review of the chart and from the staff. Patient has cognitive impairment and is unable to give any detailed medical information. [facility]LY [facility] Past Medical History Medical History BPH (benign prostatic hyperplasia) CKD (chronic kidney disease) Diabetes Hypertension Depression COPD (chronic obstructive pulmonary disease) Social History Social History Smoking status: Former smoker Tobacco type: cigarettes Second hand tobacco smoke exposure: Yes Alcohol intake: former Substance use: former Lack of Transportation: No Lack of Food: Never True Current Housing: I Have Housing Concerned About Future Housing: No Difficulty Paying Gas/Electric Bills: No Difficulty Paying for Meds: No Currently Unemployed: No Education: Associate Degree Difficulty w/ Childcare or Family Care: No Spiritual care concerns: No Meds Home Medications and Allergies Home Medications ?Medication ?Instructions ?Recorded ?Confirmed ?Type acetaminophen 325 mg capsule 325 mg PO Q4H PRN fever or pain 06/07/25 06/23/25 History acetaminophen 500 mg tablet 500 mg PO BID 06/07/25 06/23/25 History albuterol sulfate 2.5 mg/3 mL 2.5 mg inhalation Q8H PRN 06/07/25 06/23/25 History (0.083 %) solution for nebulization shortness of breath or wheezing amlodipine 10 mg tablet 10 mg PO DAILY 06/07/25 06/23/25 History apixaban 2.5 mg tablet (Eliquis) 2.5 mg PO Q12H 06/07/25 06/23/25 History atorvastatin 20 mg tablet 20 mg PO QPM 06/07/25 06/23/25 History cholecalciferol (vitamin D3) 125 125 mcg PO DAILY 06/07/25 06/23/25 History mcg (5,000 unit) tablet escitalopram oxalate 10 mg tablet 5 mg PO DAILY 06/07/25 06/23/25 History fluticasone 250 mcg-salmeterol 50 1 inh inhalation Q12H 06/07/25 06/23/25 History mcg/dose blistr powdr for inhalation folic acid 400 mcg tablet 400 mcg PO DAILY 06/07/25 06/23/25 History hydralazine 100 mg tablet 100 mg PO TID 06/07/25 06/23/25 History insulin lispro 100 unit/mL 1 sliding scale dose subcut BID 06/07/25 06/23/25 History subcutaneous pen (Humalog KwikPen (U-100) Insulin) linagliptin 5 mg tablet (Tradjenta) 5 mg PO DAILY 06/07/25 06/23/25 History loperamide 2 mg capsule 2 mg PO Q12H PRN loose stool 06/07/25 06/23/25 History loratadine 10 mg tablet (Allergy 10 mg PO DAILY 06/07/25 06/23/25 History Relief (loratadine)) magnesium hydroxide 2,400 mg/10 mL 30 ml PO DAILY PRN constipation 06/07/25 06/23/25 History oral suspension (Milk Of Magnesia Concentrated) metoprolol tartrate 50 mg tablet 50 mg PO DAILY 06/07/25 06/23/25 History mirabegron 25 mg tablet,extended 25 mg PO HS 06/07/25 06/23/25 History release 24 hr (Myrbetriq) mirtazapine 15 mg tablet 15 mg PO HS 06/07/25 06/23/25 History sennosides 8.6 mg tablet (senna) 8.6 mg PO DAILY 06/07/25 06/23/25 History torsemide 20 mg tablet 40 mg PO DAILY 06/07/25 06/23/25 History trazodone 100 mg tablet 100 mg PO HS 06/07/25 06/23/25 History vilazodone 40 mg tablet 40 mg PO DAILY 06/07/25 06/23/25 History zolpidem 10 mg tablet 7.5 mg PO HS 06/07/25 06/23/25 History potassium chloride 10 mEq 10 meq PO DAILY #20 caps 06/13/25 06/23/25 Rx capsule,extended release furosemide 40 mg tablet 40 mg PO Q12H 06/23/25 06/23/25 History insulin glargine 100 unit/mL (3 6 unit subcut HS 06/23/25 06/23/25 History mL) subcutaneous pen (Lantus Solostar U-100 Insulin) Allergies Allergy/AdvReac Type Severity Reaction Status Date / Time No Known Allergies Allergy Verified 06/23/25 17:47 Vital Signs Vital Signs - 24 hr 06/24/25 14:01 06/24/25 14:09 06/24/25 16:00 Temperature 37.0 C Pulse Rate 90 96 102 H Respiratory Rate 16 16 21 H Blood Pressure 140/82 Pulse Oximetry 92 Oxygen Delivery Oxygen Flow Rate 06/24/25 20:00 06/24/25 20:36 06/24/25 20:42 Temperature Pulse Rate 96 88 Respiratory Rate 18 18 Blood Pressure Pulse Oximetry 92 91 Oxygen Delivery Nasal Cannula Nasal Cannula Oxygen Flow Rate 3 3 06/24/25 20:47 06/24/25 23:21 06/25/25 01:57 Temperature 36.7 C Pulse Rate 86 96 96 Respiratory Rate 18 18 18 Blood Pressure 132/65 Pulse Oximetry 92 Oxygen Delivery Oxygen Flow Rate 06/25/25 02:05 06/25/25 06:13 06/25/25 07:37 Temperature 36.3 C L Pulse Rate 88 86 76 Respiratory Rate 18 16 17 Blood Pressure 154/70 H Pulse Oximetry 91 Oxygen Delivery Oxygen Flow Rate 06/25/25 07:42 06/25/25 07:42 06/25/25 09:10 Temperature Pulse Rate 80 85 Respiratory Rate 17 Blood Pressure Pulse Oximetry 92 Oxygen Delivery Venturi Mask Oxygen Flow Rate 6 06/25/25 09:10 Temperature Pulse Rate Respiratory Rate Blood Pressure Pulse Oximetry 95 Oxygen Delivery Venturi Mask Oxygen Flow Rate 5 Exam Narrative: PHYSICAL EXAMINATION: GENERAL: Alert, no acute distress MENTAL STATUS: Slightly anxious and irritable EYES: Extraocular movements intact, no pallor EARS: External ears appear normal, hearing grossly normal NOSE: Normal and patent, no discharge MOUTH: Mucous membranes moist, tongue normal NECK: Supple, no JVD CHEST: Decreased breath sounds HEART: Normal rate, distant heart sounds ABDOMEN: Soft, nontender NEUROLOGICAL: Alert, speech is coherent MUSCULOSKELETAL: No major deformity, no amputation EXTREMITIES: Trace pedal edema, no clubbing, no cyanosis SKIN: no rash on the exposed area, no cyanosis PSYCHIATRIC: Anxious Results Labs and Meds 06/25/25 06:03 06/25/25 06:03 Lab results: Cardiac Enzymes 06/25/25 Range/Units 06:03 AST 18 (17-59) U/L CBC 06/25/25 Range/Units 06:03 WBC 7.9 (4.5-10.0) K/mm3 RBC 3.61 L (4.6-6.20) M/mm3 Hgb 10.0 L (14.0-18.0) g/dL Hct 33.9 L (42.0-52.0) % Plt Count 226 (150-375) k/mm3 Lymph # (Auto) 1.01 (0.9-3.2) K/mm3 [place] # (Auto) 0.7 H (0.1-0.6) K/mm3 Eos # (Auto) 0.2 (0-0.3) K/mm3 Baso # (Auto) 0.1 (0.0-0.1) K/mm3 Comprehensive Metabolic Panel 06/25/25 Range/Units 06:03 Sodium 137 (137-145) mmol/L Potassium 3.7 (3.4-5.0) mmol/L Chloride 102 (98-107) mmol/L Carbon Dioxide 31 H (22-30) mmol/L BUN 25 H (9-20) mg/dL Creatinine 1.77 H (0.7-1.3) mg/dL Glucose 169 H (65-110) mg/dL Calcium 7.9 L (8.4-10.2) mg/dL AST 18 (17-59) U/L ALT 11 (6-50) U/L Alkaline Phosphatase 94 (38-126) U/L Total Protein 6.9 (6.3-8.2) g/dL Albumin 3.3 L (3.5-5.1) g/dL Intake and Output 06/24/25 06/25/25 06/25/25 23:59 07:59 15:59 Intake Total 240 500 240 Balance 240 500 240 Intake: Oral 240 500 240 Other: # Unmeasured Voids 0 2 Patient Weight 06/25/25 23:59 Weight 139.9 kg
--- NOTE | 2025-06-25 13:07 | PM.IMPN ---
Progress Note: A&P Assessment and Plan (1) UTI (urinary tract infection): Code(s): N39.0 - Urinary tract infection, site not specified Status: Acute (2) Chest pain: Code(s): R07.9 - Chest pain, unspecified Status: Acute (3) CHF (congestive heart failure): Code(s): I50.9 - Heart failure, unspecified Status: Acute (4) Leukocytosis: Code(s): D72.829 - Elevated white blood cell count, unspecified Status: Acute (5) COPD (chronic obstructive pulmonary disease): Code(s): J44.9 - Chronic obstructive pulmonary disease, unspecified Status: Acute (6) COREY (acute kidney injury): Code(s): N17.9 - Acute kidney failure, unspecified Status: Acute (7) BPH (benign prostatic hyperplasia): Code(s): N40.0 - Benign prostatic hyperplasia without lower urinary tract symptoms Status: Acute (8) Hypocalcemia: Code(s): E83.51 - Hypocalcemia Status: Acute (9) Hemoperitoneum: Code(s): K66.1 - Hemoperitoneum Status: Acute (10) Depression: Code(s): F32.A - Depression, unspecified Status: Acute (11) Hypertension: Code(s): I10 - Essential (primary) hypertension Status: Acute (12) Diabetes: Code(s): E11.9 - Type 2 diabetes mellitus without complications Status: Acute Plan 75-year-old male with history of dementia, heart failure, diabetes who recently had pneumonia with [facility] in by EMS [facility] chest pain. Patient states that the chest pain started this morning and is dull in nature. On bedside exam patient denies chest pain. However he is diaphoretic, afebrile, tachypneic on 3 L of oxygen. Patient has general complains amylase however he does not give details. Denies nausea and vomiting. Lab work shows leukocytosis at 19.3, hemoglobin 10.6, BUN of 35, creatinine of 2.50 with baseline being around 1.4, GFR 25, glucose of 196, calcium of 8.2, AST is 16, proBNP of 673, CTA shows no pulmonary embolism, no acute cardiopulmonary disease, Inferior and posterior nonuniform wall thickening of the bladder with a small bladder diverticulum likely related to chronic outlet obstruction from the enlarged prostate. There is some stranding along the base of bladder and would correlate with urinalysis to exclude post urinary tract infection/cystitis and Large retroperitoneal hematoma beginning in the right lower quadrant along the anterior margin of the psoas muscle and extending caudally to the distal femoral insertion of the iliopsoas tendon at the anterior right thigh. EKG shows sinus rhythm with first-degree AV block. Chest pain serial troponin negative. EKG with nonspecific ST-T changes. BNP 673. Chest x-ray with no acute cardiopulmonary abnormality. Chest CT abdomen pelvis with contrast with mild dependent atelectasis and corresponding mild volume loss in the bilateral lower lobes. No pulmonary edema pleural effusion or airspace opacities suspicious for pneumonia. Atherosclerotic coronary artery calcification noted no pericardial effusion. Thoracic aorta normal with no dissection. Moderate thoracic spondylosis with bridging osteophytes at multiple levels consistent with diffuse idiopathic skeletal hyperostosis. Lexiscan with small mild infarct and inferior wall. Cardiology consulted. On medical management. Placed on aspirin. UTI UA with more than 100 WBC on Rocephin. Follow urine culture Mild hypoxia Needing oxygen supplementation elevated D-dimer possible COPD exacerbation. DuoNeb cough and S and Rocephin and doxy. Suspicion for pneumonia is low. With primary diagnosis is UTI. COREY on CKD stage 3 creatinine on admission was 2.5. Baseline creatinine in mid 1s Gallstones several noted on CT abdomen with no dilation wall thickening or pericolic inflammatory stranding suggesting acute cholecystitis. 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 Received IV Lasix. On oral Lasix home dose. Continue to monitor renal function Type 2 diabetes Hypertension Anxiety depression DVT prophylaxis on Eliquis Code status do not resuscitate Subjective Date/time seen: 06/25/25 13:07 Interval history: No overnight events. No new complaints. Reports no chest pain. Review of Systems Review of Systems: 12 systems were reviewed and are negative except for as per HPI. Exam Narrative: General: Chronically Ill-appearing no acute distress HEENT: normocephalic, atraumatic. Mucous membranes moist. EOMI, PERRLA, Respiratory: Diminished breath sounds bilaterally no wheezes or rhonchi. Cardiovascular: Regular rate and rhythm, normal S1-S2 upon ascultation. No murmurs, rubs, or clicks. Abdomen: Obese Soft, round, no pulsatile masses, nondistended and nontender. Delete Extremities: Trace edema, No cyanosis, clubbing, . Pulses are palpable 2/2. Active ROM to all four extremities. Neuro: Alert and orientated x 4. PERRLA. Cranial nerves 2-12 intact without focal deficit. Skin: Warm, dry, and intact, without rash, erythema, or lesion. Psych: pleasant, cooperative, normal speech, normal affect, no hallucinations, no dysarthia Objective Data Vital Signs Vital Signs: Vital Signs - 24 hr 06/24/25 14:01 06/24/25 14:09 06/24/25 16:00 Temperature 98.6 F Pulse Rate 90 96 102 H Respiratory Rate 16 16 21 H Blood Pressure 140/82 Pulse Oximetry 92 Oxygen Delivery Oxygen Flow Rate 06/24/25 20:00 06/24/25 20:36 06/24/25 20:42 Temperature Pulse Rate 96 88 Respiratory Rate 18 18 Blood Pressure Pulse Oximetry 92 91 Oxygen Delivery Nasal Cannula Nasal Cannula Oxygen Flow Rate 3 3 06/24/25 20:47 06/24/25 23:21 06/25/25 01:57 Temperature 98.0 F Pulse Rate 86 96 96 Respiratory Rate 18 18 18 Blood Pressure 132/65 Pulse Oximetry 92 Oxygen Delivery Oxygen Flow Rate 06/25/25 02:05 06/25/25 06:13 06/25/25 07:37 Temperature 97.3 F L Pulse Rate 88 86 76 Respiratory Rate 18 16 17 Blood Pressure 154/70 H Pulse Oximetry 91 Oxygen Delivery Oxygen Flow Rate 06/25/25 07:42 06/25/25 07:42 06/25/25 09:10 Temperature Pulse Rate 80 85 Respiratory Rate 17 Blood Pressure Pulse Oximetry 92 Oxygen Delivery Venturi Mask Oxygen Flow Rate 6 06/25/25 09:10 06/25/25 12:39 Temperature Pulse Rate 79 Respiratory Rate Blood Pressure 151/85 H Pulse Oximetry 95 92 Oxygen Delivery Venturi Mask Oxygen Flow Rate 5 Intake/Output Intake/Output: Intake & Output 06/22/25 06/23/25 06/24/25 06/25/25 23:59 23:59 23:59 23:59 Intake Total 890 1180 840 Output Total 0 300 Balance 890 880 840 Meds/Results Medications: Active Medications Generic Name Dose Route Start Last Admin Trade Name Freq PRN Reason Stop Dose Admin Acetaminophen 650 mg 06/23/25 15:57 06/25/25 03:17 Acetaminophen 325 Mg Tablet PO 650 mg Q4H PRN Administration Mild Pain (1-3) or Fever Albuterol 2.5 mg 06/23/25 17:46 Albuterol Sulfate Neb 2.5 Mg/3 Ml Inh INHALATION Q8HRT PRN Shortness Of Breath Or Wheezin Albuterol/Ipratropium 3 ml 06/24/25 02:00 06/25/25 07:31 Ipratropium 0.5 Mg/Albuterol Sulfate 2.5 Mg (Base) Ampul.Neb 3 Ml INHALATION 3 ml Q6HRT SAAD Administration Amlodipine Besylate 10 mg 06/24/25 09:00 06/25/25 09:10 Amlodipine Besylate 10 Mg Tablet PO 10 mg DAILY SAAD Administration Apixaban 2.5 mg 06/23/25 21:00 06/25/25 09:10 Apixaban 2.5 Mg Tablet PO 2.5 mg Q12HR SAAD Administration Aspirin 81 mg 06/24/25 13:00 06/25/25 09:09 Aspirin 81 Mg Enteric Tablet PO 81 mg QAM SAAD Administration Atorvastatin Calcium 20 mg 06/23/25 18:00 06/24/25 17:23 Atorvastatin 20 Mg Tablet PO 20 mg QPM SAAD Administration Dextrose 12.5 gm 06/23/25 14:51 Dextrose 50% 25 Gm/50 Ml Syringe IV PUSH PRN PRN Hypoglycemia Protocol Docusate Sodium 100 mg 06/23/25 17:00 06/25/25 09:09 Docusate Sodium 100 Mg Capsule PO 100 mg BID SAAD Administration Escitalopram Oxalate 5 mg 06/24/25 09:00 06/25/25 09:10 Escitalopram Oxalate 5 Mg Tablet PO 5 mg DAILY SAAD Administration Furosemide 40 mg 06/23/25 21:00 Furosemide 40 Mg Tablet PO On Hold: 06/23/25 21:00 Q12HR SAAD Glucagon 1 mg 06/23/25 14:51 Glucagon For Inj 1 Mg Vial IM PRN PRN Hypoglycemia Protocol Glucose 15 gm 06/23/25 14:51 Glucose Oral Gel 15 Gm Of Glucse In 37.5 Gm Tube PO PRN PRN Hypoglycemia Protocol Guaifenesin 1,200 mg 06/24/25 09:00 06/25/25 09:10 Guaifenesin 12 Hr 600 Mg Tabcr PO 1,200 mg Q12HR SAAD Administration Hydralazine HCl 100 mg 06/24/25 09:00 06/25/25 12:32 Hydralazine Hcl 50 Mg Tablet PO 100 mg TID SAAD Administration Dextrose 1,000 mls @ 100 mls/hr 06/23/25 14:51 Dextrose 5% 1,000 Ml IVPB PRN PRN Hypoglycemia Protocol Ceftriaxone Sodium 1 gm/ 50 mls @ 100 mls/hr 06/23/25 21:00 06/24/25 20:32 Sodium Chloride IVPB 100 mls/hr Q24H SAAD Administration Doxycycline Hyclate 100 mg/ 100 mls @ 100 mls/hr 06/24/25 00:00 06/25/25 12:32 Sodium Chloride IVPB 100 mls/hr Q12H SAAD Administration Insulin Aspart 2 - 5 units 06/24/25 08:00 06/25/25 12:24 Insulin Aspart (*Bkc) 100 Units/Ml SUB-Q Not Given [facility] Protocol Insulin Glargine 6 units 06/23/25 21:00 06/24/25 20:34 Insulin Glargine (*Bkc) 100 Units/Ml SUB-Q 6 units HS SAAD Administration Loratadine 10 mg 06/24/25 09:00 06/25/25 09:10 Loratadine 10 Mg Tablet PO 10 mg DAILY SAAD Administration Metoprolol Tartrate 50 mg 06/24/25 09:00 06/25/25 09:10 Metoprolol Tartrate 50 Mg Tab PO 50 mg DAILY SAAD Administration Mirabegron 25 mg 06/23/25 21:00 06/24/25 20:38 Mirabegron 25 Mg Er Tablet PO 25 mg HS SAAD Administration Mirtazapine 15 mg 06/23/25 21:00 06/24/25 20:33 Mirtazapine 15 Mg Tablet PO 15 mg HS SAAD Administration Miscellaneous Information 0 each 06/23/25 00:01 06/25/25 07:34 Vilazodone 40mg Nonform Can Pt Bring From Home? XX 07/23/25 00:00 Not Given CLARIFY SAAD Morphine Sulfate 2 mg 06/23/25 16:07 Morphine Sulfate (*Crx) 4 Mg/Ml Inj IV PUSH Q4H PRN Pain Rated 7-10 Nitroglycerin 0.4 mg 06/23/25 15:57 Nitroglycerin Sl 0.4 Mg Tablet SUBLINGUAL Q5MIN PRN Chest Pain Non-Formulary Medication 40 mg 06/24/25 09:00 Vilazodone PO 07/24/25 08:59 DAILY SAAD Perflutren Lipid Microsphere 0 ml 06/23/25 15:59 Perflutren Lipid Microspheres 1.5 Ml Vial Diluted To 10 Ml Total Volume IV PUSH 06/26/25 16:00 ONCE PRN adequate visualization Protocol Potassium Chloride 10 meq 06/24/25 09:00 06/25/25 09:09 Potassium Chloride 10 Meq Er Tablet PO 10 meq DAILY SAAD Administration Senna 8.6 mg 06/24/25 09:00 06/25/25 09:09 Sennosides 8.6 Mg Tablet PO 8.6 mg DAILY SAAD Administration Tamsulosin HCl 0.4 mg 06/24/25 09:00 06/25/25 09:09 Tamsulosin Hcl 0.4 Mg Capsule PO 0.4 mg QAM SAAD Administration Torsemide 40 mg 06/24/25 09:00 Torsemide 20 Mg Tablet PO On Hold: 06/24/25 09:00 DAILY SAAD Trazodone HCl 100 mg 06/24/25 00:00 06/24/25 20:33 Trazodone Hcl 50 Mg Tablet PO 100 mg HS SAAD Administration Zolpidem Tartrate 7.5 mg 06/23/25 21:00 06/24/25 20:33 Zolpidem Tartrate (*Crx) 2.5 Mg Tablet PO 7.5 mg HS SAAD Administration Radiology Results: ITS Impressions Chest/Abdomen/Pelvis CT 06/23/25 13:48 IMPRESSION: 1. No acute cardiopulmonary disease. 2. Inferior and posterior nonuniform wall thickening of the bladder with a small bladder diverticulum likely related to chronic outlet obstruction from the enlarged prostate. There is some stranding along the base of bladder and would correlate with urinalysis to exclude post urinary tract infection/cystitis. No other acute intra-abdominal/pelvic process. 3. Large retroperitoneal hematoma beginning in the right lower quadrant along the anterior margin of the psoas muscle and extending caudally to the distal femoral insertion of the iliopsoas tendon at the anterior right thigh. ADDENDUM: 06/23/25 [id number] CORRECTION: There is a dictation error in the third impression. With the correction capitalized this should read- 3. Large retroperitoneal LIPOMA beginning in the right lower quadrant along the anterior margin of the psoas muscle and extending caudally to the distal femoral insertion of the iliopsoas tendon at the anterior right thigh. Lexiscan Stress Test 06/24/25 12:14 IMPRESSION: 1. Small area of mild infarct involving mid inferior segment of left ventricle. 2. Normal left ventricular ejection fraction measuring >70%. Chest X-Ray 06/25/25 09:32 IMPRESSION: 1. No acute cardiopulmonary findings given portable technique. Labs Labs: Laboratory Results - last 24 hr 06/24/25 06/24/25 06/24/25 13:33 17:02 23:23 WBC RBC Hgb Hct MCV MCH MCHC RDW Plt Count MPV Immature Gran % (Auto) Neut % (Auto) Lymph % (Auto) [place] % (Auto) Eos % (Auto) Baso % (Auto) Lymph # (Auto) [place] # (Auto) Eos # (Auto) Baso # (Auto) Abs Immat Gran (auto) Absolute Neuts (auto) Absolute Nucleated RBC Band Neutrophils % Nucleated RBC % Platelet Estimate Hypochromasia Schistocytes Sodium Potassium Chloride Carbon Dioxide Anion Gap BUN Creatinine Estim Creat Clear Calc Estimated GFR Glucose POC Capillary Glucose 157 H 189 H 172 H Calcium Magnesium Total Bilirubin AST ALT Alkaline Phosphatase Total Protein Albumin 06/25/25 06/25/25 06/25/25 06:03 07:32 11:30 WBC 7.9 RBC 3.61 L Hgb 10.0 L Hct 33.9 L MCV 93.9 MCH 27.7 MCHC 29.5 L RDW 15.3 H Plt Count 226 MPV 10.2 Immature Gran % (Auto) 0.6 H Neut % (Auto) 74.0 H Lymph % (Auto) 12.8 L [place] % (Auto) 9.0 H Eos % (Auto) 3.0 Baso % (Auto) 0.6 Lymph # (Auto) 1.01 [place] # (Auto) 0.7 H Eos # (Auto) 0.2 Baso # (Auto) 0.1 Abs Immat Gran (auto) 0.05 H Absolute Neuts (auto) 5.8 Absolute Nucleated RBC 0.000 Band Neutrophils % Not Reportable Nucleated RBC % 0.0 Platelet Estimate Adequate Hypochromasia Occasional Schistocytes None seen Sodium 137 Potassium 3.7 Chloride 102 Carbon Dioxide 31 H Anion Gap 4 BUN 25 H Creatinine 1.77 H Estim Creat Clear Calc 49 Estimated GFR 38 L Glucose 169 H POC Capillary Glucose 168 H 171 H Calcium 7.9 L Magnesium 2.3 Total Bilirubin 0.5 AST 18 ALT 11 Alkaline Phosphatase 94 Total Protein 6.9 Albumin 3.3 L
[2025-06-25] MEDS: ATORVASTATIN 20 MG TABLET PO (18:37)
[2025-06-25] MEDS: MIRABEGRON 25 MG ER TABLET PO (20:27)
[2025-06-25] MEDS: MIRTAZAPINE 15 MG TABLET PO (20:27)
[2025-06-25] MEDS: ZOLPIDEM TARTRATE (*CRX) 2.5 MG TABLET 7.5 MG PO (20:27)
[2025-06-25] MEDS: cefTRIAXone 1 GM in SODIUM CHLORIDE 0.9% IV 50 ML 100 ML IVPB (20:30)
[2025-06-25] MEDS: INSULIN GLARGINE (*BKC) 100 UNITS/ML 6 UNITS SUB-Q (20:30)
[2025-06-26] VITALS (15 sets, daily range): BP systolic 124–132; BP diastolic 63–74; PULSE 72–86; RESP 16–20; TEMP 36.2–37.5; O2SAT 79–94
[2025-06-26] MEDS: IPRATROPIUM 0.5 MG/ALBUTEROL SULFATE 2.5 MG (BASE) AMPUL.NEB 3 ML INHALATION ×4 (01:11→20:14)
--- NOTE | 2025-06-26 01:20 | PCRTNOTE ---
Pt frequently removing o2, Pt found on RA 79% Pt placed on 6 LPM v-mask. 28%
--- NOTE | 2025-06-26 03:36 | PCRCNOTE ---
Unable to preform Apnea link due to Pt 79% on RA. Pt was placed on venturi mask.
[2025-06-26 06:09] LABS: Hematocrit 33.6 % (42.0-52.0); Hemoglobin 10.0 g/dL (14.0-18.0); Immature Granulocyte Percent A 0.5 % (0-0.5); Lymphocytes Absolute Auto 0.97 K/mm3 (0.9-3.2); Mean Corpuscular HGB Conc 29.8 g/dl (32-36); Mean Corpuscular Hemoglobin 27.5 pg (26-34); Mean Corpuscular Volume 92.3 fl (80-100); Nucleated Red Blood Cells Absolute Auto 0.000 K/mm3 (0.0-0.012); Nucleated Red Blood Cells Perc 0.0 % (0.0-0.2); Platelet Count Result 227 k/mm3 (150-375); Red Blood Count 3.64 M/mm3 (4.6-6.20); White Blood Count 6.7 K/mm3 (4.5-10.0)
[2025-06-26 06:35] LABS: Alanine Aminotransferase 11 U/L (6-50); Albumin Level 3.3 g/dL (3.5-5.1); Alkaline Phosphatase 77 U/L (38-126); Anion Gap 6 mmol/L (4-12); Aspartate Amino Transferase 18 U/L (17-59); Bilirubin,Total 0.4 mg/dL (0.2-1.3); Blood Urea Nitrogen 20 mg/dL (9-20); Calcium 8.1 mg/dL (8.4-10.2); Carbon Dioxide 29 mmol/L (22-30); Chloride 102 mmol/L (98-107); Estimated CRCL calculation 57 ml/min; Estimated Glomerular Filt Rate 46; Glucose 179 mg/dL (65-110); Magnesium 2.3 mg/dL (1.6-2.3); Potassium 3.8 mmol/L (3.4-5.0); Sodium 137 mmol/L (137-145); Total Protein 6.8 g/dL (6.3-8.2)
[2025-06-26 06:51] LABS: Hypochromasia Occasional; Schistocytes None Seen; Stomatocytes Occasional
[2025-06-26] MEDS: ASPIRIN 81 MG ENTERIC TABLET PO (09:02)
[2025-06-26] MEDS: DOCUSATE SODIUM 100 MG CAPSULE PO ×2 (09:02→17:45)
[2025-06-26] MEDS: guaiFENesin 12 HR 600 MG TABCR 1200 MG PO ×2 (09:02→21:44)
[2025-06-26] MEDS: APIXABAN 2.5 MG TABLET PO ×2 (09:02→21:45)
[2025-06-26] MEDS: POTASSIUM CHLORIDE 10 MEQ ER TABLET PO (09:02)
[2025-06-26] MEDS: SENNOSIDES 8.6 MG TABLET PO (09:02)
[2025-06-26] MEDS: LORATADINE 10 MG TABLET PO (09:03)
[2025-06-26] MEDS: TAMSULOSIN HCL 0.4 MG CAPSULE PO (09:03)
[2025-06-26] MEDS: ESCITALOPRAM OXALATE 5 MG TABLET PO (09:03)
[2025-06-26] MEDS: METOPROLOL TARTRATE 50 MG TAB PO (09:03)
--- NOTE | 2025-06-26 12:07 | P.PNIM_ITS ---
Progress Note: A&P Assessment and Plan (1) UTI (urinary tract infection): Code(s): N39.0 - Urinary tract infection, site not specified Status: Acute (2) Chest pain: Code(s): R07.9 - Chest pain, unspecified Status: Acute (3) CHF (congestive heart failure): Code(s): I50.9 - Heart failure, unspecified Status: Acute (4) Leukocytosis: Code(s): D72.829 - Elevated white blood cell count, unspecified Status: Acute (5) COPD (chronic obstructive pulmonary disease): Code(s): J44.9 - Chronic obstructive pulmonary disease, unspecified Status: Acute (6) COREY (acute kidney injury): Code(s): N17.9 - Acute kidney failure, unspecified Status: Acute (7) BPH (benign prostatic hyperplasia): Code(s): N40.0 - Benign prostatic hyperplasia without lower urinary tract symptoms Status: Acute (8) Hypocalcemia: Code(s): E83.51 - Hypocalcemia Status: Acute (9) Hemoperitoneum: Code(s): K66.1 - Hemoperitoneum Status: Acute (10) Depression: Code(s): F32.A - Depression, unspecified Status: Acute (11) Hypertension: Code(s): I10 - Essential (primary) hypertension Status: Acute (12) Diabetes: Code(s): E11.9 - Type 2 diabetes mellitus without complications Status: Acute Plan 75-year-old male with history of dementia, heart failure, diabetes who recently had pneumonia with [facility] chest [facility]. Patient states that the chest pain started this morning and is dull in nature. On bedside exam patient denies chest pain. However he is diaphoretic, afebrile, tachypneic on 3 L of oxygen. Patient has general complains amylase however he does not give details. Denies nausea and vomiting. Lab work shows leukocytosis at 19.3, hemoglobin 10.6, BUN of 35, creatinine of 2.50 with baseline being around 1.4, GFR 25, glucose of 196, calcium of 8.2, AST is 16, proBNP of 673, CTA shows no pulmonary embolism, no acute cardiopulmonary disease, Inferior and posterior nonuniform wall thickening of the bladder with a small bladder diverticulum likely related to chronic outlet obstruction from the enlarged prostate. There is some stranding along the base of bladder and would correlate with urinalysis to exclude post urinary tract infection/cystitis and Large retroperitoneal hematoma beginning in the right lower quadrant along the anterior margin of the psoas muscle and extending caudally to the distal femoral insertion of the iliopsoas tendon at the anterior right thigh. EKG shows sinus rhythm with first-degree AV block. Chest pain serial troponin negative. EKG with nonspecific ST-T changes. BNP 673. Chest x-ray with no acute cardiopulmonary abnormality. Chest CT abdomen pelvis with contrast with mild dependent atelectasis and corresponding mild volume loss in the bilateral lower lobes. No pulmonary edema pleural effusion or airspace opacities suspicious for pneumonia. Atherosclerotic coronary artery calcification noted no pericardial effusion. Thoracic aorta normal with no dissection. Moderate thoracic spondylosis with bridging osteophytes at multiple levels consistent with diffuse idiopathic skeletal hyperostosis. Lexiscan with small mild infarct and inferior wall. Cardiology consulted. On medical management. Placed on aspirin. Echo with EF 70% grade 2 diastolic dysfunction mild aortic stenosis UTI UA with more than 100 WBC on Rocephin. Urine culture growing E coli. Await sensitivity Mild hypoxia Needing oxygen supplementation elevated D-dimer possible COPD exacerbation. DuoNeb cough and S and Rocephin and doxy. Suspicion for pneumonia is low. With primary diagnosis is UTI. Still requiring oxygen supplementation. And incentive spirometry. Continued on diuresis. Not actively wheezing. Will add inhaled steroid COREY on CKD stage 3 creatinine on admission was 2.5. Baseline creatinine in mid 1s. Back to baseline. Gallstones several noted on CT abdomen with no dilation wall thickening or pericolic inflammatory stranding suggesting acute cholecystitis. 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 Received IV Lasix. On oral Lasix home dose. Continue to monitor renal function Type 2 diabetes Hypertension Anxiety depression DVT prophylaxis on Eliquis Code status do not resuscitate Subjective Date/time seen: 06/26/25 12:07 Interval history: No overnight events. Teary today. He denies any other complaints. Review of Systems Review of Systems: 12 systems were reviewed and are negativ e except for as per HPI. Exam Narrative: General: Chronically Ill-appearing no acute distress HEENT: normocephalic, atraumatic. Mucous membranes moist. EOMI, PERRLA, Respiratory: Diminished breath sounds bilaterally no wheezes or rhonchi. Cardiovascular: Regular rate and rhythm, normal S1-S2 upon ascultation. No murmurs, rubs, or clicks. Abdomen: Obese Soft, round, no pulsatile masses, nondistended and nontender. Delete Extremities: Trace edema, No cyanosis, clubbing, . Pulses are palpable 2/2. Active ROM to all four extremities. Neuro: Alert and orientated x 4. PERRLA. Cranial nerves 2-12 intact without focal deficit. Skin: Warm, dry, and intact, without rash, erythema, or lesion. Psych: pleasant, cooperative, normal speech, normal affect, no hallucinations, no dysarthia Objective Data Vital Signs Vital Signs: Vital Signs - 24 hr 06/25/25 12:39 06/25/25 13:50 06/25/25 13:55 Temperature Pulse Rate 79 74 74 Respiratory Rate 17 17 Blood Pressure 151/85 H Pulse Oximetry 92 Oxygen Delivery Oxygen Flow Rate Fraction of Inspired Oxygen 06/25/25 14:00 06/25/25 19:47 06/25/25 19:50 Temperature 97.6 F Pulse Rate 73 75 Respiratory Rate 16 20 Blood Pressure 139/67 Pulse Oximetry 93 80 L Oxygen Delivery Room Air Oxygen Flow Rate Fraction of Inspired Oxygen 06/25/25 19:51 06/25/25 19:56 06/25/25 20:00 Temperature Pulse Rate 75 75 Respiratory Rate 20 20 Blood Pressure Pulse Oximetry 90 Oxygen Delivery Venturi Mask Room Air Oxygen Flow Rate 6 Fraction of Inspired Oxygen 28 06/25/25 22:00 06/26/25 01:12 06/26/25 01:12 Temperature 98.4 F Pulse Rate 93 80 Respiratory Rate 16 20 Blood Pressure 133/62 Pulse Oximetry 92 79 L Oxygen Delivery Room Air Oxygen Flow Rate Fraction of Inspired Oxygen 21 06/26/25 01:23 06/26/25 03:15 06/26/25 06:51 Temperature 97.7 F Pulse Rate 78 72 Respiratory Rate 20 16 Blood Pressure 132/63 Pulse Oximetry 92 92 Oxygen Delivery Nasal Cannula Oxygen Flow Rate 4 Fraction of Inspired Oxygen 36 06/26/25 07:30 06/26/25 07:30 06/26/25 07:35 Temperature Pulse Rate 86 83 Respiratory Rate 20 20 Blood Pressure Pulse Oximetry 92 Oxygen Delivery Nasal Cannula Oxygen Flow Rate 4 Fraction of Inspired Oxygen 36 06/26/25 09:03 06/26/25 10:06 Temperature Pulse Rate 84 Respiratory Rate Blood Pressure Pulse Oximetry Oxygen Delivery Nasal Cannula Oxygen Flow Rate 3 Fraction of Inspired Oxygen Intake/Output Intake/Output: Intake & Output 06/23/25 06/24/25 06/25/25 06/26/25 23:59 23:59 23:59 23:59 Intake Total 890 1230 1180 670 Output Total 0 300 Balance 776 982 2530 670 Meds/Results Medications: Active Medications Generic Name Dose Route Start Last Admin Trade Name Freq PRN Reason Stop Dose Admin Acetaminophen 650 mg 06/23/25 15:57 06/25/25 03:17 Acetaminophen 325 Mg Tablet PO 650 mg Q4H PRN Administration Mild Pain (1-3) or Fever Albuterol 2.5 mg 06/23/25 17:46 Albuterol Sulfate Neb 2.5 Mg/3 Ml Inh INHALATION Q8HRT PRN Shortness Of Breath Or Wheezin Albuterol/Ipratropium 3 ml 06/24/25 02:00 06/26/25 07:32 Ipratropium 0.5 Mg/Albuterol Sulfate 2.5 Mg (Base) Ampul.Neb 3 Ml INHALATION 3 ml Q6HRT SAAD Administration Amlodipine Besylate 10 mg 06/24/25 09:00 06/26/25 09:02 Amlodipine Besylate 10 Mg Tablet PO 10 mg DAILY SAAD Administration Apixaban 2.5 mg 06/23/25 21:00 06/26/25 09:02 Apixaban 2.5 Mg Tablet PO 2.5 mg Q12HR SAAD Administration Aspirin 81 mg 06/24/25 13:00 06/26/25 09:02 Aspirin 81 Mg Enteric Tablet PO 81 mg QAM SAAD Administration Atorvastatin Calcium 20 mg 06/23/25 18:00 06/25/25 18:37 Atorvastatin 20 Mg Tablet PO 20 mg QPM SAAD Administration Dextrose 12.5 gm 06/23/25 14:51 Dextrose 50% 25 Gm/50 Ml Syringe IV PUSH PRN PRN Hypoglycemia Protocol Docusate Sodium 100 mg 06/23/25 17:00 06/26/25 09:02 Docusate Sodium 100 Mg Capsule PO 100 mg BID SAAD Administration Escitalopram Oxalate 5 mg 06/24/25 09:00 06/26/25 09:03 Escitalopram Oxalate 5 Mg Tablet PO 5 mg DAILY SAAD Administration Furosemide 40 mg 06/23/25 21:00 Furosemide 40 Mg Tablet PO On Hold: 06/23/25 21:00 Q12HR SAAD Glucagon 1 mg 06/23/25 14:51 Glucagon For Inj 1 Mg Vial IM PRN PRN Hypoglycemia Protocol Glucose 15 gm 06/23/25 14:51 Glucose Oral Gel 15 Gm Of Glucse In 37.5 Gm Tube PO PRN PRN Hypoglycemia Protocol Guaifenesin 1,200 mg 06/24/25 09:00 06/26/25 09:02 Guaifenesin 12 Hr 600 Mg Tabcr PO 1,200 mg Q12HR SAAD Administration Hydralazine HCl 100 mg 06/24/25 09:00 06/26/25 09:02 Hydralazine Hcl 50 Mg Tablet PO 100 mg TID SAAD Administration Dextrose 1,000 mls @ 100 mls/hr 06/23/25 14:51 Dextrose 5% 1,000 Ml IVPB PRN PRN Hypoglycemia Protocol Ceftriaxone Sodium 1 gm/ 50 mls @ 100 mls/hr 06/23/25 21:00 06/25/25 20:30 Sodium Chloride IVPB 100 mls/hr Q24H SAAD Administration Doxycycline Hyclate 100 mg/ 100 mls @ 100 mls/hr 06/24/25 00:00 06/25/25 23:46 Sodium Chloride IVPB 100 mls/hr Q12H SAAD Administration Insulin Aspart 2 - 5 units 06/24/25 08:00 06/26/25 08:49 Insulin Aspart (*Bkc) 100 Units/Ml SUB-Q Not Given TIDWM SAAD Protocol Insulin Glargine 6 units 06/23/25 21:00 06/25/25 20:30 Insulin Glargine (*Bkc) 100 Units/Ml SUB-Q 6 units HS SAAD Administration Loratadine 10 mg 06/24/25 09:00 06/26/25 09:03 Loratadine 10 Mg Tablet PO 10 mg DAILY SAAD Administration Metoprolol Tartrate 50 mg 06/24/25 09:00 06/26/25 09:03 Metoprolol Tartrate 50 Mg Tab PO 50 mg DAILY SAAD Administration Mirabegron 25 mg 06/23/25 21:00 06/25/25 20:27 Mirabegron 25 Mg Er Tablet PO 25 mg HS SAAD Administration Mirtazapine 15 mg 06/23/25 21:00 06/25/25 20:27 Mirtazapine 15 Mg Tablet PO 15 mg HS SAAD Administration Miscellaneous Information 0 each 06/23/25 00:01 06/25/25 07:34 Vilazodone 40mg Nonform Can Pt Bring From Home? XX 07/23/25 00:00 Not Given CLARIFY SAAD Morphine Sulfate 2 mg 06/23/25 16:07 Morphine Sulfate (*Crx) 4 Mg/Ml Inj IV PUSH Q4H PRN Pain Rated 7-10 Nitroglycerin 0.4 mg 06/23/25 15:57 Nitroglycerin Sl 0.4 Mg Tablet SUBLINGUAL Q5MIN PRN Chest Pain Non-Formulary Medication 40 mg 06/24/25 09:00 Vilazodone PO 07/24/25 08:59 DAILY SAAD Perflutren Lipid Microsphere 0 ml 06/23/25 15:59 Perflutren Lipid Microspheres 1.5 Ml Vial Diluted To 10 Ml Total Volume IV PUSH 06/26/25 16:00 ONCE PRN adequate visualization Protocol Potassium Chloride 10 meq 06/24/25 09:00 06/26/25 09:02 Potassium Chloride 10 Meq Er Tablet PO 10 meq DAILY SAAD Administration Senna 8.6 mg 06/24/25 09:00 06/26/25 09:02 Sennosides 8.6 Mg Tablet PO 8.6 mg DAILY SAAD Administration Tamsulosin HCl 0.4 mg 06/24/25 09:00 06/26/25 09:03 Tamsulosin Hcl 0.4 Mg Capsule PO 0.4 mg QAM SAAD Administration Torsemide 40 mg 06/24/25 09:00 Torsemide 20 Mg Tablet PO On Hold: 06/24/25 09:00 DAILY SAAD Trazodone HCl 100 mg 06/24/25 00:00 06/25/25 20:27 Trazodone Hcl 50 Mg Tablet PO 100 mg HS SAAD Administration Zolpidem Tartrate 7.5 mg 06/23/25 21:00 06/25/25 20:27 Zolpidem Tartrate (*Crx) 2.5 Mg Tablet PO 7.5 mg HS SAAD Administration Radiology Results: ITS Impressions Chest/Abdomen/Pelvis CT 06/23/25 13:48 IMPRESSION: 1. No acute cardiopulmonary disease. 2. Inferior and posterior nonuniform wall thickening of the bladder with a small bladder diverticulum likely related to chronic outlet obstruction from the enlarged prostate. There is some stranding along the base of bladder and would correlate with urinalysis to exclude post urinary tract infection/cystitis. No other acute intra-abdominal/pelvic process. 3. Large retroperitoneal hematoma beginning in the right lower quadrant along the anterior margin of the psoas muscle and extending caudally to the distal femoral insertion of the iliopsoas tendon at the anterior right thigh. ADDENDUM: 06/23/25 1420 CORRECTION: There is a dictation error in the third impression. With the correction capitalized this should read- 3. Large retroperitoneal LIPOMA beginning in the right lower quadrant along the anterior margin of the psoas muscle and extending caudally to the distal femoral insertion of the iliopsoas tendon at the anterior right thigh. Lexiscan Stress Test 06/24/25 12:14 IMPRESSION: 1. Small area of mild infarct involving mid inferior segment of left ventricle. 2. Normal left ventricular ejection fraction measuring >70%. Chest X-Ray 06/25/25 09:32 IMPRESSION: 1. No acute cardiopulmonary findings given portable technique. Labs Labs: Laboratory Results - last 24 hr 06/25/25 06/25/25 06/26/25 17:11 20:25 05:42 WBC 6.7 RBC 3.64 L Hgb 10.0 L Hct 33.6 L MCV 92.3 MCH 27.5 MCHC 29.8 L RDW 15.3 H Plt Count 227 MPV 9.6 Immature Gran % (Auto) 0.5 Neut % (Auto) 68.6 Lymph % (Auto) 14.6 L Elliott % (Auto) 10.7 H Eos % (Auto) 4.7 H Baso % (Auto) 0.9 Lymph # (Auto) 0.97 Elliott # (Auto) 0.7 H Eos # (Auto) 0.3 Baso # (Auto) 0.1 Abs Immat Gran (auto) 0.03 Absolute Neuts (auto) 4.6 Absolute Nucleated RBC 0.000 Band Neutrophils % Not Reportable Nucleated RBC % 0.0 Platelet Estimate Adequate Hypochromasia Occasional Stomatocytes Occasional Schistocytes None seen Sodium 137 Potassium 3.8 Chloride 102 Carbon Dioxide 29 Anion Gap 6 BUN 20 Creatinine 1.51 H Estim Creat Clear Calc 57 Estimated GFR 46 L Glucose 179 H POC Capillary Glucose 173 H 175 H Calcium 8.1 L Magnesium 2.3 Total Bilirubin 0.4 AST 18 ALT 11 Alkaline Phosphatase 77 Total Protein 6.8 Albumin 3.3 L 06/26/25 06/26/25 08:22 11:57 WBC RBC Hgb Hct MCV MCH MCHC RDW Plt Count MPV Immature Gran % (Auto) Neut % (Auto) Lymph % (Auto) Elliott % (Auto) Eos % (Auto) Baso % (Auto) Lymph # (Auto) Elliott # (Auto) Eos # (Auto) Baso # (Auto) Abs Immat Gran (auto) Absolute Neuts (auto) Absolute Nucleated RBC Band Neutrophils % Nucleated RBC % Platelet Estimate Hypochromasia Stomatocytes Schistocytes Sodium Potassium Chloride Carbon Dioxide Anion Gap BUN Creatinine Estim Creat Clear Calc Estimated GFR Glucose POC Capillary Glucose 192 H 239 H Calcium Magnesium Total Bilirubin AST ALT Alkaline Phosphatase Total Protein Albumin
[2025-06-26] MEDS: DOXYCYCLINE IV 100 MG in SODIUM CHLORIDE 0.9% IV 100 ML IVPB (13:22)
[2025-06-26] MEDS: INSULIN ASPART (*BKC) 100 UNITS/ML SUB-Q ×2 (13:23→17:48)
[2025-06-26] MEDS: ATORVASTATIN 20 MG TABLET PO (17:50)
--- NOTE | 2025-06-26 20:16 | PCRCNOTE ---
unable to due apnea link on RA, Pt is 90% on 3LPM NC
[2025-06-26] MEDS: ZOLPIDEM TARTRATE (*CRX) 2.5 MG TABLET 7.5 MG PO (21:44)
[2025-06-26] MEDS: MIRTAZAPINE 15 MG TABLET PO (21:44)
[2025-06-26] MEDS: cefTRIAXone 1 GM in SODIUM CHLORIDE 0.9% IV 50 ML 100 ML IVPB (21:45)
[2025-06-26] MEDS: MIRABEGRON 25 MG ER TABLET PO (21:45)
[2025-06-26] MEDS: INSULIN GLARGINE (*BKC) 100 UNITS/ML 6 UNITS SUB-Q (21:45)
[2025-06-27] VITALS (8 sets, daily range): BP systolic 139–141; BP diastolic 68–74; PULSE 68–82; RESP 18–20; TEMP 36.8–37.2; O2SAT 95–96
[2025-06-27] MEDS: DOXYCYCLINE IV 100 MG in SODIUM CHLORIDE 0.9% IV 100 ML IVPB ×2 (00:29→12:14)
[2025-06-27] MEDS: IPRATROPIUM 0.5 MG/ALBUTEROL SULFATE 2.5 MG (BASE) AMPUL.NEB 3 ML INHALATION ×3 (01:04→13:41)
[2025-06-27 06:08] LABS: Hematocrit 32.2 % (42.0-52.0); Hemoglobin 9.5 g/dL (14.0-18.0); Immature Granulocyte Percent A 0.7 % (0-0.5); Lymphocytes Absolute Auto 1.11 K/mm3 (0.9-3.2); Mean Corpuscular HGB Conc 29.5 g/dl (32-36); Mean Corpuscular Hemoglobin 27.6 pg (26-34); Mean Corpuscular Volume 93.6 fl (80-100); Nucleated Red Blood Cells Absolute Auto 0.000 K/mm3 (0.0-0.012); Nucleated Red Blood Cells Perc 0.0 % (0.0-0.2); Platelet Count Result 215 k/mm3 (150-375); Red Blood Count 3.44 M/mm3 (4.6-6.20); White Blood Count 6.1 K/mm3 (4.5-10.0)
[2025-06-27 06:47] LABS: Alanine Aminotransferase 13 U/L (6-50); Albumin Level 3.1 g/dL (3.5-5.1); Alkaline Phosphatase 63 U/L (38-126); Anion Gap 3 mmol/L (4-12); Aspartate Amino Transferase 23 U/L (17-59); Bilirubin,Total 0.4 mg/dL (0.2-1.3); Blood Urea Nitrogen 18 mg/dL (9-20); Calcium 8.2 mg/dL (8.4-10.2); Carbon Dioxide 30 mmol/L (22-30); Chloride 105 mmol/L (98-107); Estimated CRCL calculation 65 ml/min; Estimated Glomerular Filt Rate 54; Glucose 150 mg/dL (65-110); Magnesium 2.3 mg/dL (1.6-2.3); Potassium 3.7 mmol/L (3.4-5.0); Sodium 138 mmol/L (137-145); Total Protein 6.5 g/dL (6.3-8.2)
[2025-06-27 07:04] LABS: Hypochromasia 1+; Schistocytes None Seen
[2025-06-27] MEDS: FLUTICASONE/UMECLIDIN/VILANTER 100-62.5-25 MCG ELLIPTA 1 PUFF INHALATION (08:19)
[2025-06-27] MEDS: guaiFENesin 12 HR 600 MG TABCR 1200 MG PO (08:44)
[2025-06-27] MEDS: TAMSULOSIN HCL 0.4 MG CAPSULE PO (08:45)
[2025-06-27] MEDS: DOCUSATE SODIUM 100 MG CAPSULE PO (08:45)
[2025-06-27] MEDS: ASPIRIN 81 MG ENTERIC TABLET PO (08:45)
[2025-06-27] MEDS: SENNOSIDES 8.6 MG TABLET PO (08:45)
[2025-06-27] MEDS: METOPROLOL TARTRATE 50 MG TAB PO (08:45)
[2025-06-27] MEDS: APIXABAN 2.5 MG TABLET PO (08:45)
[2025-06-27] MEDS: ESCITALOPRAM OXALATE 5 MG TABLET PO (08:45)
[2025-06-27] MEDS: POTASSIUM CHLORIDE 10 MEQ ER TABLET PO (08:45)
[2025-06-27] MEDS: LORATADINE 10 MG TABLET PO (08:46)
--- NOTE | 2025-06-27 12:16 | PM.DS ---
DS: Admitting Diagnosis Discharge Date 06/27/2025 Admitting Diagnosis Chest pain DS: Discharge Diagnosis Discharge Diagnosis (1) UTI (urinary tract infection): Code(s): N39.0 - Urinary tract infection, site not specified Status: Acute (2) Chest pain: Code(s): R07.9 - Chest pain, unspecified Status: Acute (3) CHF (congestive heart failure): Code(s): I50.9 - Heart failure, unspecified Status: Acute (4) Leukocytosis: Code(s): D72.829 - Elevated white blood cell count, unspecified Status: Acute (5) COPD (chronic obstructive pulmonary disease): Code(s): J44.9 - Chronic obstructive pulmonary disease, unspecified Status: Acute (6) COREY (acute kidney injury): Code(s): N17.9 - Acute kidney failure, unspecified Status: Acute (7) BPH (benign prostatic hyperplasia): Code(s): N40.0 - Benign prostatic hyperplasia without lower urinary tract symptoms Status: Acute (8) Hypocalcemia: Code(s): E83.51 - Hypocalcemia Status: Acute (9) Hemoperitoneum: Code(s): K66.1 - Hemoperitoneum Status: Acute (10) Depression: Code(s): F32.A - Depression, unspecified Status: Acute (11) Hypertension: Code(s): I10 - Essential (primary) hypertension Status: Acute (12) Diabetes: Code(s): E11.9 - Type 2 diabetes mellitus without complications Status: Acute DS: Summary Hospital Course Hospital Course: 75-year-old male with history of dementia, heart failure, diabetes who recently had pneumonia with brought in by EMS from his residential chest pain. Patient states that the chest pain started this morning and is dull in nature. On bedside exam patient denies chest pain. However he is diaphoretic, afebrile, tachypneic on 3 L of oxygen. Patient has general complains amylase however he does not give details. Denies nausea and vomiting. Lab work shows leukocytosis at 19.3, hemoglobin 10.6, BUN of 35, creatinine of 2.50 with baseline being around 1.4, GFR 25, glucose of 196, calcium of 8.2, AST is 16, proBNP of 673, CTA shows no pulmonary embolism, no acute cardiopulmonary disease, Inferior and posterior nonuniform wall thickening of the bladder with a small bladder diverticulum likely related to chronic outlet obstruction from the enlarged prostate. There is some stranding along the base of bladder and would correlate with urinalysis to exclude post urinary tract infection/cystitis and Large retroperitoneal hematoma beginning in the right lower quadrant along the anterior margin of the psoas muscle and extending caudally to the distal femoral insertion of the iliopsoas tendon at the anterior right thigh. EKG shows sinus rhythm with first-degree AV block. Chest pain serial troponin negative. EKG with nonspecific ST-T changes. BNP 673. Chest x-ray with no acute cardiopulmonary abnormality. Chest CT abdomen pelvis with contrast with mild dependent atelectasis and corresponding mild volume loss in the bilateral lower lobes. No pulmonary edema pleural effusion or airspace opacities suspicious for pneumonia. Atherosclerotic coronary artery calcification noted no pericardial effusion. Thoracic aorta normal with no dissection. Moderate thoracic spondylosis with bridging osteophytes at multiple levels consistent with diffuse idiopathic skeletal hyperostosis. Lexiscan with small mild infarct and inferior wall. Cardiology consulted. On medical management. Placed on aspirin. Echo with EF 70% grade 2 diastolic dysfunction mild aortic stenosis UTI UA with more than 100 WBC on Rocephin. Urine culture growing E coli. Await sensitivity which is still pending. Will switch to oral to finish the course. Hypoxia Needing oxygen supplementation upon arrival. Was tachypneic placed on 3 L oxygen. Elevated D-dimer possible COPD exacerbation. DuoNeb cough suppressant along with Rocephin and doxy. Suspicion for pneumonia is low however With primary diagnosis is UTI. Patient Still required oxygen supplementation. And incentive spirometry. Continued on diuresis. Not actively wheezing. Added long-term trelegy. Will need oxygen supplementation continuously to keep SpO2 more than 90% which will be provided at the nursing facility. COREY on CKD stage 3 creatinine on admission was 2.5. Baseline creatinine in mid 1s. Back to baseline by the time of discharge Gallstones several noted on CT abdomen with no dilation wall thickening or pericolic inflammatory stranding suggesting acute cholecystitis. 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 Received IV Lasix. On oral Lasix home dose. Continue to monitor renal function Type 2 diabetes Hypertension Anxiety depression DVT prophylaxis on Eliquis Code status do not resuscitate Time Spent with Patient Time attestation: Total time spent providing and/or coordinating discharge services: 45 minutes Exam Narrative: General: Chronically Ill-appearing no acute distress HEENT: normocephalic, atraumatic. Mucous membranes moist. EOMI, PERRLA, Respiratory: Diminished breath sounds bilaterally no wheezes or rhonchi. Cardiovascular: Regular rate and rhythm, normal S1-S2 upon ascultation. No murmurs, rubs, or clicks. Abdomen: Obese Soft, round, no pulsatile masses, nondistended and nontender. Extremities: Trace edema, No cyanosis, clubbing, . Pulses are palpable 2/2. Active ROM to all four extremities. Neuro: Alert and orientated x 4. PERRLA. Cranial nerves 2-12 intact without focal deficit. Skin: Warm, dry, and intact, without rash, erythema, or lesion. Psych: pleasant, cooperative, normal speech, normal affect, no hallucinations, no dysarthia DS: Data Data Completed and Pending Completed studies during hospitalization: Exam Type: CA echo doppler color flow Complete two-dimensional, color flow and Doppler transthoracic echocardiogram is performed. Staff Referring Physician: Jaquelin Kruger Hemodialysis Technician: Gilma Briscoe Attending Provider: Katarina Sanz Summary 1. Complete two-dimensional, color flow and Doppler transthoracic echocardiogram is performed. 2. Suboptimal image quality. Normal LV size, mild LVH, hyperdynamic LV systolic function, ejection fraction more than 70%. Pseudo normal/grade 2 diastolic dysfunction. Normal RV size and systolic function. Mild left enlargement. Mild MAC, no significant MR. Aortic valve is not well visualized. Mild aortic stenosis with RADHA 2.2 cm2 by Doppler; maximum velocity 1.8 meters per sec, mean gradient 6 mmHg. Unable to assess RVSP due to inadequate TR jet. Dilated IVC with normal respiratory collapse. Sinus of Valsalva 3.9 cm. Epicardial fat pad, no significant pericardial effusion. Labs on day of discharge: Labs from last 24 hours 06/27/25 06/27/25 06/27/25 11:37 07:37 05:30 WBC 6.1 RBC 3.44 L Hgb 9.5 L Hct 32.2 L MCV 93.6 MCH 27.6 MCHC 29.5 L RDW 15.0 H Plt Count 215 MPV 9.8 Immature Gran % (Auto) 0.7 H Neut % (Auto) 64.7 Lymph % (Auto) 18.1 L [place] % (Auto) 10.6 H Eos % (Auto) 5.2 H Baso % (Auto) 0.7 Lymph # (Auto) 1.11 [place] # (Auto) 0.7 H Eos # (Auto) 0.3 Baso # (Auto) 0.0 Abs Immat Gran (auto) 0.04 H Absolute Neuts (auto) 4.0 Absolute Nucleated RBC 0.000 Band Neutrophils % Not Reportable Nucleated RBC % 0.0 Platelet Estimate Adequate Hypochromasia 1+ Schistocytes None seen Sodium 138 Potassium 3.7 Chloride 105 Carbon Dioxide 30 Anion Gap 3 L BUN 18 Creatinine 1.30 Estim Creat Clear Calc 65 Estimated GFR 54 L Glucose 150 H POC Capillary Glucose 160 H 159 H Calcium 8.2 L Magnesium 2.3 Total Bilirubin 0.4 AST 23 ALT 13 Alkaline Phosphatase 63 Total Protein 6.5 Albumin 3.1 L 06/26/25 06/26/25 20:08 16:39 WBC RBC Hgb Hct MCV MCH MCHC RDW Plt Count MPV Immature Gran % (Auto) Neut % (Auto) Lymph % (Auto) [place] % (Auto) Eos % (Auto) Baso % (Auto) Lymph # (Auto) [place] # (Auto) Eos # (Auto) Baso # (Auto) Abs Immat Gran (auto) Absolute Neuts (auto) Absolute Nucleated RBC Band Neutrophils % Nucleated RBC % Platelet Estimate Hypochromasia Schistocytes Sodium Potassium Chloride Carbon Dioxide Anion Gap BUN Creatinine Estim Creat Clear Calc Estimated GFR Glucose POC Capillary Glucose 190 H 208 H Calcium Magnesium Total Bilirubin AST ALT Alkaline Phosphatase Total Protein Albumin Preliminary micro results at discharge 06/23/25 12:43 Blood Culture - Preliminary Blood 06/23/25 12:43 Blood Culture - Preliminary Blood 06/23/25 20:35 - Preliminary Urine Catheterized Escherichia coli. Imaging Radiologist's impression: ITS Impressions Chest X-Ray 06/23/25 12:13 Impression: No acute cardiopulmonary abnormality. Chest/Abdomen/Pelvis CT 06/23/25 13:48 IMPRESSION: 1. No acute cardiopulmonary disease. 2. Inferior and posterior nonuniform wall thickening of the bladder with a small bladder diverticulum likely related to chronic outlet obstruction from the enlarged prostate. There is some stranding along the base of bladder and would correlate with urinalysis to exclude post urinary tract infection/cystitis. No other acute intra-abdominal/pelvic process. 3. Large retroperitoneal hematoma beginning in the right lower quadrant along the anterior margin of the psoas muscle and extending caudally to the distal femoral insertion of the iliopsoas tendon at the anterior right thigh. ADDENDUM: 06/23/25 1421 CORRECTION: There is a dictation error in the third impression. With the correction capitalized this should read- 3. Large retroperitoneal LIPOMA beginning in the right lower quadrant along the anterior margin of the psoas muscle and extending caudally to the distal femoral insertion of the iliopsoas tendon at the anterior right thigh. Lexiscan Stress Test 06/24/25 12:14 IMPRESSION: 1. Small area of mild infarct involving mid inferior segment of left ventricle. 2. Normal left ventricular ejection fraction measuring >70%. Chest X-Ray 06/25/25 09:32 IMPRESSION: 1. No acute cardiopulmonary findings given portable technique. Discharge Plan Discharge Attending physician on discharge: Mendez Rodrigues Consulting providers: Antonella Schmitz; Tatum Thacker Discharging Clinician: Mendez Rodrigues Anticipated Discharge Date/Time: 06/27/25 12:19 Patient Disposition: SNF Activity: as tolerated Diet: heart healthy Discharge Instructions: Oxygen supplementation 3 L via nasal cannula to keep SpO2 more than 90% Patient Instructions: Apixaban (By mouth) Patient Language: Indian Stand Alone Forms: General Discharge Information Follow-up/Referrals: Tatum Thacker, [facility] [Advanced Practice Nurse, Cardiology] PHYSICIAN,HOME SALES CONSULTANT [Primary Care Provider, Internal Medicine] - 1 Week Discharge Medications: New aspirin 81 mg Tablet,Delayed Release (Dr/Ec) 81 mg PO QAM Qty: 30 0RF nitroglycerin [Nitrostat] 0.4 mg Tablet, Sublingual 0.4 mg sublingual Q5MIN PRN (Reason: Chest Pain) Qty: 30 0RF tamsulosin 0.4 mg Capsule 0.4 mg PO QAM Qty: 30 0RF Breztri Aerosphere 160-9-4.8 mcg/actuation HFA aerosol inhaler 2 inh inhalation BID Qty: 10.7 0RF Continued furosemide 40 mg tablet 40 mg PO Q12H insulin glargine [Lantus Solostar U-100 Insulin] 100 unit/mL (3 mL) insulin pen 6 unit SUBCUT HS acetaminophen 325 mg capsule 325 mg PO Q4H PRN (Reason: fever or pain) acetaminophen 500 mg tablet 500 mg PO BID albuterol sulfate 2.5 mg /3 mL (0.083 %) solution for nebulization 2.5 mg inhalation Q8H PRN (Reason: shortness of breath or wheezing) amlodipine 10 mg tablet 10 mg PO DAILY atorvastatin 20 mg tablet 20 mg PO QPM Eliquis 2.5 mg tablet 2.5 mg PO Q12H escitalopram oxalate 10 mg tablet 5 mg PO DAILY zolpidem 10 mg tablet 7.5 mg PO HS vilazodone 40 mg tablet 40 mg PO DAILY cholecalciferol (vitamin D3) 125 mcg (5,000 unit) tablet 125 mcg PO DAILY trazodone 100 mg tablet 100 mg PO HS insulin lispro [Humalog KwikPen Insulin] 100 unit/mL insulin pen 1 sliding scale dose SUBCUT BID Rx Instructions: 0-150 0u 151-200 8u 201-250 10u 251-300 12u 301-350 16u 351-400 20u >400 call Tradjenta 5 mg tablet 5 mg PO DAILY sennosides [senna] 8.6 mg tablet 8.6 mg PO DAILY mirtazapine 15 mg tablet 15 mg PO HS metoprolol tartrate 50 mg tablet 50 mg PO DAILY magnesium hydroxide [Milk Of Magnesia Concentrated] 2,400 mg/10 mL suspension 30 ml PO DAILY PRN (Reason: constipation) loratadine [Allergy Relief (loratadine)] 10 mg tablet 10 mg PO DAILY loperamide 2 mg capsule 2 mg PO Q12H PRN (Reason: loose stool) hydralazine 100 mg tablet 100 mg PO TID folic acid 400 mcg tablet 400 mcg PO DAILY mirabegron [Myrbetriq] 25 mg tablet extended release 24 hr 25 mg PO HS potassium chloride 10 mEq capsule, extended release 10 meq PO DAILY Qty: 20 0RF Discontinued torsemide 20 mg tablet 40 mg PO DAILY fluticasone propion-salmeterol 250-50 mcg/dose blister with device 1 inh INHALATION Q12H Date of admission: 06/24/25 11:20 Primary Care Provider: PHYSICIAN,HOME SALES CONSULTANT Admitting Provider: Katarina Sanz Attending physician on admission: Katarina Sanz Condition: Serious Hospitalist MIPS Heart Failure (Exclusion) Patient has history of Heart Transplant or Left Ventricular Assistive Device?: No IF YES, STOP HERE Heart Failure (Qualifier) Patient has current or prior documentation of LVEF less than or equal to 40%, or mod/servere depressed LVSF?: No IF NO, STOP HERE
--- NOTE | 2025-07-01 08:18 | PC.NURSE ---
Urine cx results sent to Dr. Rodrigues.
== END 2025-06-27 14:50 | DRG 690 ==
LOC: ANHED 11:39 → ANHIMU 16:16 → ANH3MEDSUR 06-25 08:16 → ANHIMU 06-29 12:59
PROVIDERS: Nurse Practitioner Gerontology; Admitting Provider Internal Medicine; Emergency Provider Preventive Medicine Aerospace Medicine; Visit Provider Internal Medicine
DX: N39.0 Urinary tract infection, site not specified (principal); N17.9 Acute kidney failure, unspecified; I13.0 Hypertensive heart and chronic kidney disease with heart failure and stage 1 through stage 4 chronic kidney disease, or unspecified chronic kidney disease; J44.1 Chronic obstructive pulmonary disease with (acute) exacerbation; I50.32 Chronic diastolic (congestive) heart failure; N18.30 Chronic kidney disease, stage 3 unspecified; E87.6 Hypokalemia; E11.22 Type 2 diabetes mellitus with diabetic chronic kidney disease; E83.51 Hypocalcemia; D17.5 Benign lipomatous neoplasm of intra-abdominal organs; K80.20 Calculus of gallbladder without cholecystitis without obstruction; N40.1 Benign prostatic hyperplasia with lower urinary tract symptoms; N13.8 Other obstructive and reflux uropathy; N32.3 Diverticulum of bladder; F03.90 Unspecified dementia, unspecified severity, without behavioral disturbance, psychotic disturbance, mood disturbance, and anxiety; F32.A Depression, unspecified; Z79.01 Long term (current) use of anticoagulants; Z79.4 Long term (current) use of insulin
CPT/HCPCS: 36415; 71045; 71046; 71260; 74177; 78452; 80048; 80053; 81001; 82948; 83605; 83690; 83735; 83880; 84484; 85025; 85380; 85610; 85730; 87040; 87086; 87186; 93005; 93017; 93306; 94640; 96365; 96367; 96375; 97161; 97165; 99285; A9270; A9502; G0378; J0456; J0612; J0692; J0696; J1815; J1938; J2785; J7030; J7040; J7050; Q9967